=== PATIENT | female | born 1945 | race Caucasian/White ===

== ENCOUNTER 2020-12-14 18:26 | Emergency (ER) | payer MEDICARE, SELFPAY ==
--- NOTE | ~2020-12-14 | XR_ITS ---
XR foot RT min 3V DATE: 12/14/2020 19:58 INDICATION: Erythema, edema. Plantar bite near first metatarsal bone TECHNIQUE: 4 views COMPARISON: None FINDINGS: Diffuse osteopenia. There is a very thin 5.7 mm radiopaque foreign body anterior to the lateral aspect of the second meta tarsal head. There is mild osteoarthritis at the first metatarsophalangeal joint. There is calcification of the distal Achilles tendon. Plantar calcaneal enthesopathy. No fracture or dislocation, periosteal reaction or bone destruction. IMPRESSION: Radiopaque foreign body Osteopenia Plantar calcaneal enthesopathy and distal Achilles tendon calcification Mild osteoarthritis at first metatarsophalangeal joint Reviewed, dictated and finalized at location A.
[2020-12-14 18:29] VITALS: BP 148/87; PULSE 73; RESP 20; TEMP 36.3; O2SAT 100
--- NOTE | 2020-12-14 19:55 | ED.LOWEXIN ---
HPI - Extremity Injury (Lower) General Chief Complaint: Extremity Injury, Lower Stated Complaint: insect bite right foot Time Seen by Provider: 12/14/20 19:16 Source: patient Mode of arrival: ambulatory Limitations: no limitations History of Present Illness HPI Narrative: This is a 74-year-old female that presents to the emergency department for right foot redness and swelling since yesterday. Reports she thought that she may have been bit by something. Reports the area is itchy. Reports she had worsening redness and swelling to the foot today which prompted her to be seen. Denies fever. Related Data Allergies Allergy/AdvReac Type Severity Reaction Status Date / Time adhesive Allergy Mild Unknown Verified 08/10/20 14:10 lisinopril Allergy Unknown Skin Verified 08/10/20 14:10 Reaction pollen extracts Allergy Unknown Sneezing Verified 08/10/20 14:10 tizanidine Allergy Unknown Pt does Verified 08/10/20 14:10 not remember reaction Review of Systems Review of Systems: Narrative: CONSTITUTIONAL: Denies fever SKIN: Reports rash and itching. MUSCULOSKELETAL: Denies joint pain, or myalgia. NEUROLOGIC: Denies numbness All systems reviewed & are unremarkable except as noted in HPI and below PMFSH Past Medical History Medical History (Updated 12/14/20 @ 22:26 by Gerda Cam PA-C) Essential (primary) hypertension Mixed hyperlipidemia Type 2 diabetes mellitus with diabetic neuropathy, unspecified Family History Family History Mother Diabetes mellitus Hypertension Father Family history of hypercholesterolemia Hypertension Family history of cardiovascular disease Sibling Family history of mental disorder Depression Family history of alcoholism Social History Social History Smoking status: Former smoker Alcohol intake: current Exam Narrative: Exam Narrative: GENERAL: Well-appearing, well-nourished, and in no acute distress. HEAD: Normocephalic, atraumatic. EYES: EOMI. EXTREMITIES: Normal range of motion. Mild edema and redness about the right foot extending into the ankle. Normal DP pulses. Normal sensation SKIN: Warm, dry, no rash. NEURO: No focal deficits. Alert and oriented x3. PSYCH: Normal mood and affect Course Vital Signs Vital signs: Vital Signs Temperature 97.4 F L 12/14/20 18:29 Pulse Rate 73 12/14/20 18:29 Respiratory Rate 20 12/14/20 18:29 Blood Pressure 148/87 H 12/14/20 18:29 Pulse Oximetry 100 12/14/20 18:29 Temperature 97.4 F L 12/14/20 18:29 Pulse Rate 73 12/14/20 18:29 Respiratory Rate 20 12/14/20 18:29 Blood Pressure 148/87 H 12/14/20 18:29 Pulse Oximetry 100 12/14/20 18:29 MDM - Extremity Injury (Lower) MDM Narrative Medical decision making narrative: Patient presents to the emergency department for redness and swelling of her right foot noted since yesterday. She is afebrile and nontoxic-appearing. CBC with mild leukocytosis to 12.1. CRP is not elevated. Right foot x-ray is without acute osseous abnormalities. Shows a 5 mm thin radiopaque foreign body. This is not in the area where patient has redness. She is not tender in this area. There is no laceration noted. She does report she thinks she stepped on some glass a couple of weeks ago. Patient will be started on oral antibiotics for cellulitis. She is to follow-up with her primary care doctor. She was given warnings to return to the ER Lab Data Attestation: I reviewed the patient's lab results. Result diagrams: 12/14/20 22:04 Labs: Lab Results 12/14/20 12/14/20 Range/Units 20:33 22:04 WBC 12.1 H (4.5-10.0) K/mm3 RBC 4.25 (4.2-5.4) M/mm3 Hgb 13.6 (12.0-15.0) g/dL Hct 41.3 (37.0-47.0) % MCV 97.2 (80-100) fl MCH 32.0 (26-34) pg MCHC 32.9 (32-36) g/dl RDW 13.0 (11.5-14.5) % Plt Count 214 (150-375
[2020-12-14 21:05] LABS: CRP < 0.5 mg/dL (<1.0)
[2020-12-14 22:11] LABS: Basophils Absolute Auto 0.1 K/mm3 (0.0-0.1); Basophils Percent Auto 0.4 % (0.2-1.2); Eosinophils Absolute Auto 0.2 K/mm3 (0-0.3); Eosinophils Percent Auto 1.5 % (0-4.4); Hematocrit 41.3 % (37.0-47.0); Hemoglobin 13.6 g/dL (12.0-15.0); Immature Granulocyte Absolute 0.07 K/mm3 (0.00-0.031); Immature Granulocyte Percent A 0.6 % (0-0.5); Lymphocytes Absolute Auto 2.96 K/mm3 (0.9-3.2); Lymphocytes Percent Auto 24.4 % (18.3-44.2); Mean Corpuscular HGB Conc 32.9 g/dl (32-36); Mean Corpuscular Volume 97.2 fl (80-100); Mean Platelet Volume 9.9 fl (7.4-10.4); Monocytes Absolute Auto 0.8 K/mm3 (0.1-0.6); Monocytes Percent Auto 6.6 % (2.6-8.5); Neutrophils Absolute Auto 8.1 K/mm3 (1.3-6.7); Neutrophils Percent Auto 66.5 % (45.5-73.1); Platelet Count Result 214 k/mm3 (150-375); Red Blood Count 4.25 M/mm3 (4.2-5.4); White Blood Count 12.1 K/mm3 (4.5-10.0)
[2020-12-14] MEDS: CEPHALEXIN 500 MG CAPSULE PO (22:35)
[2020-12-14 22:36] LABS: Erythrocyte Sedimentation Rate 6 mm/hr (0-20)
[2020-12-14 22:40] VITALS: BP 139/89; PULSE 71; RESP 18; TEMP 36.8; O2SAT 100
== END 2020-12-14 22:40 | disposition home or self-care (01) ==
PROVIDERS: Physician Assistant; Emergency Provider Emergency Medicine; PCP Family Medicine
DX: L03.115 Cellulitis of right lower limb (principal); I10 Essential (primary) hypertension; E78.5 Hyperlipidemia, unspecified; E11.9 Type 2 diabetes mellitus without complications
CPT/HCPCS: 36415; 73630; 85025; 85652; 86140; 99283; A9270

== ENCOUNTER 2021-06-24 13:33 | Outpatient (CLI) | payer MEDICARE, SELFPAY ==
--- NOTE | ~2021-06-24 | XR_ITS ---
EXAMINATION: XR lumbar spine 6V w bending EXAM DATE: 06/24/2021 13:56 INDICATION: M54.9 - Dorsalgia, unspecified TECHNIQUE: Lumber spine frontal, lateral, bilateral oblique projections. Bilateral oblique projectio ns. Additional lateral flexion and lateral extension projections obtained. Coned down frontal and l ateral L5-S1 lumbar projections for interpretation. Images obtained upright. There is no prior study for comparison. FINDINGS: Mild diffuse loss of lumbar vertebral body heights. There is about 3 mm retrolisthesis L3 o n L4 and L4 on L5, no appreciable change in these subluxations between the lateral flexion and latera l extension projections.. Moderate disc disease throughout the lumbar spine. Mild to moderate lumbar dextroscoliosis. No spondylolysis suspected. There is moderate to severe lumbar facet arthropathy. Ao rtic arterial sclerosis. Sacrum, sacroiliac joints, sacral arcuate lines are intact. IMPRESSION: 1. Moderate lumbar disc disease, moderate to severe arthropathy. 2. Mild to moderate dextroscoliosis. Reviewed, dictated and finalized at location A. HIATRY RESIDENT
== END 2021-06-24 13:34 | disposition home or self-care (01) ==
LOC: ANHIMG 13:39
PROVIDERS: PCP Family Medicine; Visit Provider Family Medicine
DX: M54.9 Dorsalgia, unspecified (principal); R20.2 Paresthesia of skin; M51.36 Other intervertebral disc degeneration, lumbar region
CPT/HCPCS: 72114

== ENCOUNTER 2021-11-21 15:16 | Inpatient (IN) | payer MEDICARE, SELFPAY ==
[2021-11-21] VITALS (28 sets, daily range): BP systolic 107–132; BP diastolic 52–76; PULSE 58–69; RESP 11–20; TEMP 36–36.4; O2SAT 94–100
--- NOTE | ~2021-11-21 | CT_ITS ---
EXAMINATION: CT abdomen pelvis wo con DATE: 11/21/2021 17:05 INDICATION: Left lower quadrant abdominal pain. Weight loss. TECHNIQUE: Computed tomography (CT) of the abdomen and pelvis was performed without intravenous contr ast. Automated exposure control and iterative reconstruction technique were employed. Exam dose: 642 .65 mGy-cm total exam DLP. COMPARISON: None. FINDINGS: Normal heart size. Prominent coronary artery calcifications. No pericardial or pleural effu geovany. The lung bases are clear of infiltrate or consolidation. Small sliding hiatal hernia. Status post cholecystectomy. No hepatic, splenic, pancreatic or right adrenal space-occupying mass le geovany is evident. 1.6 x 2.3 cm soft tissue mass of the left adrenal area. Generalized left renal atrophy, left renal scarring. No renal mass lesion or urinary tract calculus o r hydroureteronephrosis is detected. There is extensive atherosclerotic calcification of the abdominal aorta and prominent calcification a t the origins of celiac and superior mesenteric and renal arteries. No abdominal aortic aneurysm. No intraperitoneal or retroperitoneal or pelvic mass lesion or adenopathy or ascites. Diverticulosis of the sigmoid colon; no CT evidence of diverticulitis. No bowel obstruction or intrap eritoneal free air. The uterus, adnexal areas and urinary bladder are unremarkable. There is severe degenerative disc disease at L3-4 and L4-5 in particular, with minimal retrolisthesis at each of these 2 levels. Prominent degenerative change at the apophyseal joints of the lumbar spin e. Diffuse osteopenia is noted otherwise. IMPRESSION: Status post cholecystectomy Small sliding hiatal hernia Diverticulosis of sigmoid colon; no CT evidence of diverticulitis 1.6 x 2.3 cm left adrenal mass evident on diffusion diagnosis includes adenoma and metastasis Left renal atrophy and scarring Extensive atherosclerotic calcification, including coronary arteries, abdominal aorta, origins of mohit iac, superior mesenteric and renal arteries Reviewed, dictated and finalized at Location [facility]. Reviewed, dictated and finalized at location B. IMPRESSION: Status post cholecystectomy Small sliding hiatal hernia Diverticulosis of sigmoid colon; no CT evidence of diverticulitis 1.6 x 2.3 cm left adrenal mass evident on diffusion diagnosis includes adenoma and metastasis Left renal atrophy and scarring Extensive atherosclerotic calcification, including coronary arteries, abdominal aorta, origins of celiac, superior mesenteric and renal arteries
--- NOTE | ~2021-11-21 | US_ITS ---
EXAMINATION: US renal BI DATE: 11/22/2021 11:02 INDICATION: Acute kidney injury TECHNIQUE: Multiple grayscale and Doppler ultrasound images of the kidneys were obtained. COMPARISON: None. FINDINGS: The right kidney measures 9.6 x 4.2 x 5.2 cm. The left kidney measures 9.4 x 4.5 x 4.9 cm. The kidneys demonstrate normal parenchymal echogenicity. There is no hydronephrosis. The bladder is n ormal. IMPRESSION: 1. Normal kidneys without hydronephrosis. Reviewed, dictated and finalized at location A.
--- NOTE | 2021-11-21 15:24 | ECG_ITS ---
Measurements Intervals [place] Rate: 63 P: 20 [place]: 141 QRS: 31 QRSD: 82 T: 85 QT: 465 QTc: 476 Interpretive Statements SINUS RHYTHM BORDERLINE ST-T WAVE ABNORMALITY- DIFFUSE LEADS BASELINE ARTIFACT- I, II, III, AVR, AVL, AVF BORDERLINE ECG Electronically Signed On 11-21-2021 15:50:15 CDT by Martin Anne D.O.
--- NOTE | 2021-11-21 16:05 | ED.ABDPAIN ---
HPI - Abdominal Pain General Chief Complaint: Abdominal Pain Stated Complaint: abd pain Time Seen by Provider: 11/21/21 15:39 History of Present Illness HPI narrative: Patient is a 75-year-old female with a history of hypertension, [place] status post stents, TIA on aspirin and Plavix, hernia status postsurgical repair, hypothyroidism, here via EMS for evaluation of diarrhea x 2 days and lightheadedness today. Patient states she began having diarrhea yesterday, it was nonbloody and nonbilious. She had a few more episodes today, and she became lightheaded while playing a board game. She also developed some left lower quadrant abdominal gas pain today with some chills, but no fevers. Her last colonoscopy was over 10 years ago, and she states it was normal. She does note an unintentional 30 pound weight loss over the past 6 months or so, which she attributes to decreased appetite. She denies any headache, nausea, vomiting, blood in her stools. Denies history or family history of malignancy. Related Data Allergies Allergy/AdvReac Type Severity Reaction Status Date / Time adhesive Allergy Mild Unknown Verified 11/21/21 15:23 lisinopril Allergy Unknown Skin Verified 11/21/21 15:23 Reaction pollen extracts Allergy Unknown Sneezing Verified 11/21/21 15:23 tizanidine Allergy Unknown Pt does Verified 11/21/21 15:23 not remember reaction Review of Systems Review of Systems: Gen.: Reports chills. Denies fevers Eyes: Denies eye pain or visual change ENT: Denies congestion Respiratory: Denies shortness of breath or cough CV: Denies chest pain or palpitations GI: Reports abdominal pain, diarrhea, weight loss. Denies nausea, emesis denies burning, urgency, frequency or hematuria Musculoskeletal: Denies back pain or muscle pain Neuro: Denies numbness, tingling, weakness or focal weakness Skin: Denies rash Except as documented, all other systems reviewed and negative All systems reviewed & are unremarkable except as noted in HPI and below [facility] Past Medical History Medical History Essential (primary) hypertension Hemiparesthesia Mixed hyperlipidemia Type 2 diabetes mellitus with diabetic neuropathy, unspecified Family History Family History (Reviewed 08/23/21 @ 09:15 by Luz Maria Rubi, [facility]) Mother Diabetes mellitus Hypertension Father Family history of hypercholesterolemia Hypertension Family history of cardiovascular disease Sibling Family history of mental disorder Depression Family history of alcoholism Social History Social History (Reviewed 08/23/21 @ 09:15 by Luz Maria Rubi [facility]) Alcohol intake: current Exam Narrative: APPEARANCE: Well appearing, no pain in distress, well-nourished. Head: normocephalic and atraumatic. EYES: PERRLA/EOMI, conjunctivae clear NOSE: No nasal drainage EARS: External ear normal in appearance THROAT: Oropharynx is clear. Mucous membranes are moist. NECK: Supple. No adenopathy, no masses. RESPIRATORY: Airway patent, respirations nonlabored. Clear to auscultation bilaterally, no rales, rhonchi, wheezing. CARDIOVASCULAR: Regular rate and rhythm without murmurs, rubs, or gallops. ABDOMINAL: Mildly tender to palpation in left lower quadrant. Normoactive bowel sounds. Soft. No rebound tenderness or guarding. MUSCULOSKELETAL: Extremities are warm and well-perfused. Moves all extremities well. No edema. NEURO: Normal speech. No focal neurologic deficits. SKIN: Skin is warm and dry. No rashes. PSYCHIATRIC: Normal affect/mood. Course Course Emergency Course: Attempted to contact Mary Anne, patient's daughter, to update with plan for admission however she did not answer phone call. Mary Anne's phone number is [phone]. Consultations Consultation #1: Spoke with Dr. Alexander, oncologist, about finding on CT scan and unintentional weight loss. Agrees with outpatient work-up plan. Vital Signs Vital signs: Vital S
[2021-11-21 16:19] LABS: Basophils Percent Auto 0.4 % (0.2-1.2); Eosinophils Absolute Auto 0.1 K/mm3 (0-0.3); Eosinophils Percent Auto 0.5 % (0-4.4); Hematocrit 41.1 % (37.0-47.0); Hemoglobin 13.5 g/dL (12.0-15.0); Immature Granulocyte Absolute 0.04 K/mm3 (0.00-0.031); Immature Granulocyte Percent A 0.4 % (0-0.5); Lymphocytes Absolute Auto 2.04 K/mm3 (0.9-3.2); Lymphocytes Percent Auto 20.8 % (18.3-44.2); Mean Corpuscular HGB Conc 32.8 g/dl (32-36); Mean Corpuscular Hemoglobin 32.2 pg (26-34); Mean Corpuscular Volume 98.1 fl (80-100); Mean Platelet Volume 10.5 fl (7.4-10.4); Monocytes Absolute Auto 0.8 K/mm3 (0.1-0.6); Monocytes Percent Auto 7.9 % (2.6-8.5); Neutrophils Absolute Auto 6.9 K/mm3 (1.3-6.7); Platelet Count Result 163 k/mm3 (150-375); Red Blood Count 4.19 M/mm3 (4.2-5.4); Red Cell Distribution Width 13.6 % (11.5-14.5); White Blood Count 9.8 K/mm3 (4.5-10.0)
[2021-11-21 16:31] LABS: Alanine Aminotransferase 25 U/L (6-35); Albumin Level 3.7 g/dL (3.5-5.1); Alkaline Phosphatase 98 U/L (38-126); Anion Gap 6 mmol/L (8-16); Aspartate Amino Transferase 34 U/L (14-36); Bilirubin,Total 0.5 mg/dL (0.2-1.3); Blood Urea Nitrogen 37 mg/dL (7-17); Calcium 9.2 mg/dL (8.4-10.2); Carbon Dioxide 24 mmol/L (22-30); Chloride 102 mmol/L (98-107); Estimated CRCL calculation 24 ml/min; Estimated Glomerular Filt Rate 26; Glucose 112 mg/dL (65-110); Lipase 155 U/L (23-300); Potassium 4.1 mmol/L (3.4-5.0); Sodium 132 mmol/L (137-145)
[2021-11-21] MEDS: SODIUM CHLORIDE 0.9% IV 1,000 ML 999 ML IV CONT ×2 (17:18→18:56)
--- NOTE | 2021-11-21 19:10 | PC.NURSE ---
BSSR from Shirin ROSARIO
[2021-11-21 19:13] LABS: Appearance Urine Clear (Clear); Bilirubin Urine Negative (Negative); Blood Urine Negative (Negative); Color Urine Yellow (Yellow); Glucose Urine UA Negative (Negative); Ketones Urine Negative (Negative); Leukocyte Esterase Ur Negative LEU/UL (Negative); Nitrate Urine Negative (Negative); Protein Urine Negative (Negative); Urobilinogen Urine 0.2 mg/dL (<2.0)
[2021-11-21 19:19] LABS: Add Urine Microscopic? NO
--- NOTE | 2021-11-21 20:03 | PM.IMHP ---
H&P: HPI History of Present Illness Date/Time: 11/21/21 20:03 Chief Complaint: Abdominal pain. Narrative: This is a 75-year-old female with past medical history significant for hypertension, hyperlipidemia, type 2 diabetes mellitus, hypothyroidism, gout. Patient presented to emergency room via EMS after she had an episode of acute onset abdominal pain excruciating localized to the right lower quadrant, patient was playing cards with her friends, patient had nausea, vomiting, diarrhea for 1 day duration, no fevers, no rigors, no chills, there was no blood in the vomit or in the diarrhea, no syncope, no near syncope, no chest pain, no palpitations, no vision changes, no shortness of breath, no cough, no sputum production. Patient had been in her usual state of health up until this. Preliminary workup was significant for chemistry panel with a creatinine of 1.[address] of abdomen and pelvis was significant for adrenal mass, sliding hiatal hernia, diverticulosis and extensive atherosclerotic disease. Decision has been made to place the patient in observation for further evaluation management and treatment. Review of Systems Review of Systems: Nausea, vomiting, diarrhea, abdominal pain. Constitutional: Constitutional: Denies chills, Denies fatigue, Denies fever(s), Denies malaise and Denies night sweats Eyes: Eyes: Denies change in vision ENT: Denies dysphagia, Denies vertigo, Denies nasal congestion, Denies nasal discharge, Denies nasal obstruction and Denies odynophagia Cardiovascular: Cardiovascular: Denies pedal edema, Denies edema, Denies leg edema, Denies lightheadedness, Denies radiating jaw, neck or arm pain, Denies palpitations and Denies dyspnea on exertion Respiratory: Respiratory: Denies cough, Denies excessive phlegm production and Denies dyspnea Gastrointestinal: Gastrointestinal: Reports abdominal pain, Denies melena, Denies hematochezia, Denies coffee ground emesis, Denies dyspepsia, Denies heartburn, Reports diarrhea, Reports nausea and Reports vomiting Genitourinary: Genitourinary: Denies dysuria Musculoskeletal: Musculoskeletal: Denies back pain, Denies arthralgias and Denies joint swelling Integumentary/Breasts: Skin/Breast: Denies rash Neurologic: Denies focal weakness and Denies Sensory deficit (Neuro) Psychiatric: Psychiatric: Reports no additional psychiatric complaints and Reports as per HPI Endocrine: Endocrine: Denies cold intolerance, Denies heat intolerance, Denies polyphagia, Denies polydipsia and Denies palpitations Hematologic/Lymphatic: Hematologic/Lymphatic: Reports no additional hematologic/lymphatic complaints and Reports as per HPI Allergic/Immunologic: Allergic/Immunologic: Reports no additional allergic/immunologic complaints and Reports as per HPI [facility] Past Medical History Medical History (Updated 11/22/21 @ 03:21 by Errol Rice MD) Essential (primary) hypertension Hemiparesthesia Mixed hyperlipidemia Type 2 diabetes mellitus with diabetic neuropathy, unspecified Family History Family History Mother Diabetes mellitus Hypertension Father Family history of hypercholesterolemia Hypertension Family history of cardiovascular disease Sibling Family history of mental disorder Depression Family history of alcoholism Social History Social History Smoking status: Former smoker Second hand tobacco smoke exposure: No Alcohol intake: current Drinks per week: 1 Substance use: never Spiritual care concerns: No Meds Home Medications and Allergies Home Medications Medication Instructions Recorded Confirmed Type isosorbide mononitrate 30 mg 30 mg PO DAILY #90 tablet 12/03/19 11/21/21 Rx tablet,extended release 24 hr allopurinol 300 mg tablet See Rx Instructions .ROUTE 02/14/21 11/21/21 Rx .COMPLEX #90 tablet levothyroxine 50 mcg tablet See Rx
--- NOTE | 2021-11-21 21:55 | PC.NURSE ---
attempted to call 3rd med/surg with no answer will call back.
--- NOTE | 2021-11-21 22:26 | ADMGEN ---
This patient, Marcelina Riggins, was admitted to 3 Med Surg Room 325-01. Patient/family oriented to hospital policies and general routines including ID bracelet, bed and alarms, visiting hours, pain management, procedures, bathroom and other care routines, personal items, smoking policy, room service/diet, and visiting hours. Information on how to activate the Rapid Response Team has been discussed. Patient/Family are encouraged to report perceived risks to care and to ask questions if they do not understand what they are told or what they should do.
[2021-11-22] MEDS: diphenhydrAMINE HCl CAP 25 MG CAPSULE 50 MG PO (00:09)
[2021-11-22 06:00] VITALS: BP 128/60; PULSE 57; RESP 18; TEMP 36.6; O2SAT 94
[2021-11-22] MEDS: LEVOTHYROXINE SODIUM 50 MCG TABLET PO (06:04)
[2021-11-22 08:00] VITALS: O2SAT 99
[2021-11-22] MEDS: CITALOPRAM HYDROBROMIDE 20 MG TABLET PO (08:56)
[2021-11-22] MEDS: CLOPIDOGREL BISULFATE 75 MG TABLET PO (08:56)
[2021-11-22] MEDS: ATORVASTATIN 40 MG TABLET PO (08:56)
[2021-11-22] MEDS: allopurinoL 300 MG TABLET PO (08:56)
[2021-11-22] MEDS: ISOSORBIDE MONONITRATE 30 MG TAB.ER.24H PO (08:57)
[2021-11-22 10:08] LABS: Hemoglobin 12.5 g/dL (12.0-15.0); Mean Corpuscular HGB Conc 32.9 g/dl (32-36); Mean Corpuscular Hemoglobin 32.1 pg (26-34); Mean Corpuscular Volume 97.7 fl (80-100); Mean Platelet Volume 10.2 fl (7.4-10.4); Platelet Count Result 159 k/mm3 (150-375); Red Blood Count 3.89 M/mm3 (4.2-5.4); Red Cell Distribution Width 13.7 % (11.5-14.5); White Blood Count 8.2 K/mm3 (4.5-10.0)
[2021-11-22 10:22] LABS: Anion Gap 5 mmol/L (8-16); Blood Urea Nitrogen 28 mg/dL (7-17); Calcium 8.6 mg/dL (8.4-10.2); Carbon Dioxide 26 mmol/L (22-30); Chloride 107 mmol/L (98-107); Estimated CRCL calculation 35 ml/min; Estimated Glomerular Filt Rate 40; Glucose 85 mg/dL (65-110); Magnesium 1.7 mg/dL (1.6-2.3); Potassium 3.8 mmol/L (3.4-5.0); Sodium 138 mmol/L (137-145)
[2021-11-22 10:40] VITALS: BMI 28.3
[2021-11-22 14:00] VITALS: BP 123/58; PULSE 59; RESP 16; TEMP 36.6; O2SAT 99
--- NOTE | 2021-11-22 16:37 | PM.DS ---
DS: Admitting Diagnosis Discharge Date 11/22/2021 Admitting Diagnosis abdominal pain DS: Discharge Diagnosis Discharge Diagnosis (1) Nausea and vomiting: Code(s): R11.2 - Nausea with vomiting, unspecified Status: Acute Assessment and Plan: Place in observation CT abdomen and pelvis reviewed Supportive care Clear liquid diet and advanced as tolerated (2) Acute kidney injury: Code(s): N17.9 - Acute kidney failure, unspecified Status: Acute Assessment and Plan: Likely to be pre renal azotemia Will hold Irbesartan and hydrochlorothiazide IV fluids Repeat BMP in the morning Renal ultrasound in a.m. (3) Adrenal mass: Code(s): E27.8 - Other specified disorders of adrenal gland Status: Acute Assessment and Plan: Follow-up in outpatient setting (4) Essential (primary) hypertension: Code(s): I10 - Essential (primary) hypertension Status: Acute Assessment and Plan: Continue isosorbide Continue to monitor (5) Osteoarthrosis, unspecified whether generalized or localized, forearm: Code(s): M19.039 - Primary osteoarthritis, unspecified wrist Status: Acute Assessment and Plan: Tylenol p.r.n. (6) Gout, unspecified: Qualifiers: Gout site: foot Gout etiology: unspecified cause Chronicity: unspecified Laterality: unspecified laterality Qualified Code(s): M10.9 - Gout, unspecified Code(s): M10.9 - Gout, unspecified Status: Acute Assessment and Plan: Allopurinol 300 mg p.o. daily Unchanged (7) Chronic bilateral low back pain without sciatica: Code(s): M54.50 - Low back pain, unspecified; G89.29 - Other chronic pain Status: Acute Assessment and Plan: Tylenol as needed Unchanged DS: Summary Hospital Course Reason for hospitalization: Chief Complaint: Abdominal pain. Narrative: This is a 75-year-old female with past medical history significant for hypertension, hyperlipidemia, type 2 diabetes mellitus, hypothyroidism, gout. Patient presented to emergency room via EMS after she had an episode of acute onset abdominal pain excruciating localized to the right lower quadrant, patient was playing cards with her friends, patient had nausea, vomiting, diarrhea for 1 day duration, no fevers, no rigors, no chills, there was no blood in the vomit or in the diarrhea, no syncope, no near syncope, no chest pain, no palpitations, no vision changes, no shortness of breath, no cough, no sputum production. Patient had been in her usual state of health up until this. Preliminary workup was significant for chemistry panel with a creatinine of 1.[address] of abdomen and pelvis was significant for adrenal mass, sliding hiatal hernia, diverticulosis and extensive atherosclerotic disease. Decision has been made to place the patient in observation for further evaluation management and treatment. Hospital Course: patient presented with complaint abdominal pain CT scan of abdomen showed adernal mass there are no other significant pathology, patient's symptoms have improved substantially and has no new complaints, will discharge the patient today patient will follow-up with oncologist for further evaluation of the mass, patient remains clinically stable Status at Discharge Functional status at discharge: uses cane/walker Overall status at discharge: patient is back to baseline Time Spent with Patient Time attestation: Total time spent providing and/or coordinating discharge services: Patient was seen and examined at the time of the discharge Condition at discharge is stable Code status: Full code. Time spent preparing discharge summary, discharge medications, discussing discharge planning with skilled nursing case manager and patient is 35 minutes. Time spent: Greater than 30 minutes Exam Narrative: Patient is comfortable, NAD HEENT: eyes are clear and none icteric LUNGS: normal respiratory effort ABD: not distended
== END 2021-11-22 17:50 | disposition home or self-care (01) | DRG 684 ==
LOC: ANHED 20:10 → ANH3MEDSUR 11-22 09:49
PROVIDERS: Emergency Medicine; Admitting Provider Internal Medicine; Emergency Provider Emergency Medicine; PCP Family Medicine; Visit Provider Family Medicine
DX: N17.9 Acute kidney failure, unspecified (principal); I10 Essential (primary) hypertension; E03.9 Hypothyroidism, unspecified; M10.9 Gout, unspecified; E78.5 Hyperlipidemia, unspecified; E11.42 Type 2 diabetes mellitus with diabetic polyneuropathy; E27.8 Other specified disorders of adrenal gland; M19.039 Primary osteoarthritis, unspecified wrist; G89.29 Other chronic pain; M54.50 Low back pain, unspecified; I25.2 Old myocardial infarction; Z95.5 Presence of coronary angioplasty implant and graft; Z79.82 Long term (current) use of aspirin; Z79.02 Long term (current) use of antithrombotics/antiplatelets; Z86.73 Personal history of transient ischemic attack (TIA), and cerebral infarction without residual deficits
CPT/HCPCS: 36415; 51701; 74176; 76775; 80048; 80053; 81003; 83690; 83735; 85025; 85027; 93005; 96360; 96361; 99285; A9270; J7030

== ENCOUNTER 2022-02-08 16:46 | Emergency (ER) | payer MEDICARE, SELFPAY ==
--- NOTE | ~2022-02-08 | XR_ITS ---
EXAMINATION: XR chest 2V Exam Date/Time: 02/08/2022 17:40 CDT HISTORY: weakness, nausea, diarrhea. hx htn Comparison: None available. RESULT: Lines, tubes, and devices: Coronary artery stents. Lungs and pleura: Clear. Cardiomediastinal silhouette: Unremarkable. Other: No acute osseous or upper abdominal finding. IMPRESSION: No acute cardiopulmonary process. Reviewed, dictated and finalized at location K.
--- NOTE | ~2022-02-08 | CT_ITS ---
EXAMINATION: CT abdomen pelvis wo con DATE: 02/08/2022 17:51 INDICATION: LUQ pain, diarrhea, weakness TECHNIQUE: Computed tomography (CT) of the abdomen and pelvis was performed without intravenous contr ast. Automated exposure control and iterative reconstruction technique were employed. The dose-length product was 642.58 mGy-cm. COMPARISON: 11/21/2021. FINDINGS: Lower thorax: Coronary artery stents. Liver: Normal. Biliary/Gallbladder: Gallbladder is absent. No bile duct dilation. Pancreas: No mass or duct dilation. Spleen: Normal. Adrenals:Left adrenal adenoma. Kidneys: No mass, stone, or hydronephrosis. GI tract: No small or large bowel dilation. Nondilated appendix with appendicolith. Diverticulosis wi thout diverticulitis. Mesentery/Peritoneum: No ascites, mass, or free air. Retroperitoneum: No mass. Atherosclerotic abdominal aortic and/or arterial calcifications. Pelvis: Pelvic organs are within normal limits. Soft Tissues: Soft tissues and body wall unremarkable. Bones: No acute osseous finding. IMPRESSION: No acute abdominopelvic process detected Reviewed, dictated and finalized at location K.
[2022-02-08 16:49] VITALS: BP 147/74; PULSE 69; RESP 20; TEMP 36.4; O2SAT 99
--- NOTE | 2022-02-08 16:51 | ECG_ITS ---
Measurements Intervals [place] Rate: 66 P: 47 [place]: 142 QRS: 62 QRSD: 82 T: 76 QT: 439 QTc: 460 Interpretive Statements SINUS RHYTHM BORDERLINE ST-T WAVE ABNORMALITY- DIFFUSE LEADS BASELINE ARTIFACT- I, II, III, AVR, AVL BORDERLINE ECG Electronically Signed On 02-08-2022 18:59:07 CDT by Martin Anne D.O.
[2022-02-08 17:13] LABS: Hematocrit 43.4 % (37.0-47.0); Hemoglobin 14.2 g/dL (12.0-15.0); Red Blood Count 4.46 M/mm3 (4.2-5.4); White Blood Count 6.4 K/mm3 (4.5-10.0)
[2022-02-08 17:14] LABS: Basophils Percent Auto 0.2 % (0.2-1.2); Immature Granulocyte Absolute 0.02 K/mm3 (0.00-0.031); Immature Granulocyte Percent A 0.3 % (0-0.5); Lymphocytes Absolute Auto 2.42 K/mm3 (0.9-3.2); Lymphocytes Percent Auto 37.8 % (18.3-44.2); Mean Corpuscular HGB Conc 32.7 g/dl (32-36); Mean Corpuscular Hemoglobin 31.8 pg (26-34); Mean Corpuscular Volume 97.3 fl (80-100); Mean Platelet Volume 10.5 fl (7.4-10.4); Monocytes Absolute Auto 0.6 K/mm3 (0.1-0.6); Monocytes Percent Auto 9.2 % (2.6-8.5); Neutrophils Absolute Auto 3.4 K/mm3 (1.3-6.7); Neutrophils Percent Auto 52.5 % (45.5-73.1); Platelet Count Result 148 k/mm3 (150-375); Red Cell Distribution Width 13.4 % (11.5-14.5)
[2022-02-08 17:22] LABS: Alanine Aminotransferase 40 U/L (6-35); Alkaline Phosphatase 73 U/L (38-126); Anion Gap 9 mmol/L (8-16); Aspartate Amino Transferase 48 U/L (14-36); Bilirubin,Total 0.7 mg/dL (0.2-1.3); Blood Urea Nitrogen 30 mg/dL (7-17); Calcium 8.7 mg/dL (8.4-10.2); Carbon Dioxide 26 mmol/L (22-30); Chloride 99 mmol/L (98-107); Estimated CRCL calculation 28 ml/min; Estimated Glomerular Filt Rate 31; Glucose 133 mg/dL (65-110); Potassium 3.8 mmol/L (3.4-5.0); Sodium 134 mmol/L (137-145)
--- NOTE | 2022-02-08 17:32 | ED.NAVMDI ---
HPI - Nausea/Vomiting/Diarrhea General Chief complaint: Weakness Stated complaint: diarrhea Time Seen by Provider: 02/08/22 17:15 History of Present Illness HPI Narrative: Patient is a 76-year-old female with a history of hypertension, hypothyroidism, OR status post stenting, on aspirin and Plavix, here for evaluation of weakness over the past day. Patient states that she just feels wiped out , and all she wants to do is lie in bed. Reports 1 episode of nonbloody diarrhea today and some nausea, states that yesterday she had some left upper quadrant abdominal pain, now resolved. Denies any fevers, chills, chest pain, shortness of breath, falls, headaches. Reports difficulty pushing out urine 2 days ago, now resolved, no dysuria, urgency or frequency. Of note, patient presented to the ED 3 months ago for similar complaints, she was admitted for observation due to an SOPHIA, symptoms improved after rehydration. She did have a renal ultrasound that was negative. Related Data Allergies Allergy/AdvReac Type Severity Reaction Status Date / Time adhesive Allergy Mild Unknown Verified 11/21/21 15:23 lisinopril Allergy Unknown Skin Verified 11/21/21 15:23 Reaction pollen extracts Allergy Unknown Sneezing Verified 11/21/21 15:23 tizanidine Allergy Unknown Pt does Verified 11/21/21 15:23 not remember reaction Review of Systems Review of Systems: Gen: Reports generalized weakness.Denies fevers or chills Eyes: Denies eye pain or visual change ENT: Denies congestion Respiratory: Denies shortness of breath or cough CV: Denies chest pain or palpitations GI: Reports abdominal pain diarrhea and nausea. Denies emesis : denies burning, urgency, frequency or hematuria Musculoskeletal: Denies back pain or muscle pain Neuro: Denies numbness, tingling, weakness or focal weakness Skin: Denies rash Except as documented, all other systems reviewed and negative [facility] Past Medical History Medical History (Updated 02/09/22 @ 00:00 by Background Daemon) Essential (primary) hypertension Hemiparesthesia Mixed hyperlipidemia Type 2 diabetes mellitus with diabetic neuropathy, unspecified Family History Family History Mother Diabetes mellitus Hypertension Father Family history of hypercholesterolemia Hypertension Family history of cardiovascular disease Sibling Family history of mental disorder Depression Family history of alcoholism Social History Social History Smoking status: Former smoker Second hand tobacco smoke exposure: No Alcohol intake: current Drinks per week: 1 Substance use: never Spiritual care concerns: No Exam Narrative: APPEARANCE: Tired appearing Head: Normocephalic and atraumatic. EYES: PERRLA/EOMI, conjunctivae clear NOSE: No nasal drainage EARS: External ear normal in appearance THROAT: Oropharynx is clear. Mucous membranes are moist. NECK: Supple. No adenopathy, no masses. RESPIRATORY: Airway patent, respirations nonlabored. Clear to auscultation bilaterally, no rales, rhonchi, wheezing. CARDIOVASCULAR: Regular rate and rhythm without murmurs, rubs, or gallops. ABDOMINAL: Normoactive bowel sounds. Soft, nontender, nondistended. No rebound tenderness or guarding. MUSCULOSKELETAL: Extremities are warm and well-perfused. Moves all extremities well. No edema. NEURO: Normal speech. No focal neurologic deficits. SKIN: Skin is warm and dry. No rashes. PSYCHIATRIC: Normal affect/mood. Course Vital Signs Vital signs: Vital Signs Temperature 97.6 F 02/08/22 16:49 Pulse Rate 69 02/08/22 16:49 Respiratory Rate 20 02/08/22 16:49 Blood Pressure 147/74 H 02/08/22 16:49 Pulse Oximetry 99 02/08/22 16:49 Oxygen Delivery Room Air 02/08/22 16:49 Temperature 97.6 F 02/08/22 16:49 Pulse Rate 75 02/08/22 20:24 Respiratory Rate 18 02/08/22 20:24 Blood
[2022-02-08 17:48] LABS: Magnesium 1.8 mg/dL (1.6-2.3); Phosphorus 2.5 mg/dL (2.5-4.5)
[2022-02-08 17:56] LABS: SARS-CoV-2 RNA PCR Positive
[2022-02-08] MEDS: SODIUM CHLORIDE 0.9% IV 1,000 ML 999 ML IV CONT (18:04)
[2022-02-08 19:36] LABS: Appearance Urine Cloudy (Clear); Bilirubin Urine 1+ (Negative); Blood Urine 2+ (Negative); Color Urine Yellow (Yellow); Glucose Urine UA Negative (Negative); Ketones Urine Trace mg/dL (Negative); Leukocyte Esterase Ur 3+ LEU/UL (Negative); Nitrate Urine Negative (Negative); Protein Urine 2+ mg/dL (Negative); Urobilinogen Urine 0.2 mg/dL (<2.0); pH Urine 5.5 (5.0-9.0)
[2022-02-08 19:51] LABS: Mucus Urine Rare /lpf; RBC Urine 51-75 /hpf (0-2); Squamous Epithelial Cell Urine Occasional /hpf (Few); WBC Clumps Urine Present /HPF; WBC Urine >75 /hpf
[2022-02-08 19:54] LABS: Add Urine Microscopic? YES
[2022-02-08 20:24] VITALS: BP 122/76; PULSE 75; RESP 18; O2SAT 99
== END 2022-02-08 20:25 | disposition home or self-care (01) ==
PROVIDERS: Physician Assistant; Emergency Provider Emergency Medicine; PCP Family Medicine
DX: U07.1 COVID-19 (principal); N39.0 Urinary tract infection, site not specified; I10 Essential (primary) hypertension; E78.5 Hyperlipidemia, unspecified; E11.40 Type 2 diabetes mellitus with diabetic neuropathy, unspecified
CPT/HCPCS: 36415; 71046; 74176; 80053; 81001; 83735; 84100; 84443; 85025; 87086; 87088; 93005; 96360; 99284; C9803; J7030; U0003; U0005

== ENCOUNTER 2022-03-10 12:28 | Outpatient (CLI) | payer MEDICARE, SELFPAY ==
--- NOTE | 2022-03-13 16:07 | WPDHOLTEREM ---
Holter/Event Monitor Holter/Event Monitor Date of procedure: 03/10/22 Holter/Event Procedure: 24 Hr Holter Monitor Indications: Weakness Conclusion: 1. 24 hour holter monitor on 03/10/22. 2. Predominant rhythm is sinus rhythm. HR range 49-90 bpm; average HR 61 bpm. 3. There are 42 premature supraventricular complexes and 1 supraventricular couplet. There are 2 episodes of atrial tachycardia, fastest at 125 bpm and longest lasting 5 beats. 4. There are 47 premature ventricular complexes. No ventricular tachycardia. 5. No sinoatrial or atrioventricular blocks. No significant pauses greater than 2 seconds. 6. Patient reports symptoms of pain around navel which demonstrate sinus rhythm at 67 bpm.
== END 2022-03-10 12:29 | disposition home or self-care (01) ==
PROVIDERS: PCP Family Medicine; Visit Provider Physician Assistant
DX: R53.1 Weakness (principal)
CPT/HCPCS: 93225; 93226

== ENCOUNTER 2022-03-27 06:25 | Observation (INO) | payer MEDICARE, SELFPAY ==
[2022-03-27] VITALS (15 sets, daily range): BP systolic 143–178; BP diastolic 56–72; PULSE 51–69; RESP 14–24; TEMP 35.7–36.6; O2SAT 97–99; BMI 28.4
--- NOTE | 2022-03-27 06:31 | ED.GENADULT ---
HPI - General Adult General Chief complaint: Allergic Reaction <Eddie Matias MD - Last Filed: 03/27/22 07:11> Stated complaint: ALLERGIC REACTION THROAT AND TONGUE SWELLING <Eddie Matias MD - Last Filed: 03/27/22 07:11> Time Seen by Provider: 03/27/22 06:35 <Eddie Matias MD - Last Filed: 03/27/22 07:11> History of Present Illness HPI narrative: 76-year-old female presented to the emergency department for evaluation of a swollen tongue and throat. Patient states last night she had an alcoholic drink from [place] and has recently started taking Febuxostat. At 5 AM she noticed that her tongue was swollen. Patient did take Benadryl at home. Patient called EMS and in route she was given additional Benadryl. Upon arrival to the emergency department patient states that she does not feel like her tongue has worsened. Patient feels that she is speaking easier than when she first woke up. Patient states she does have some pain with swallowing but denies any difficulty breathing. Patient is able to speak relatively clearly. Patient had been on lisinopril previously but stopped the medication due to a prior skin reaction. Patient has no prior history of angioedema. Patient has history of type 2 diabetes, hypertension, gout. <Eddie Matias MD - Last Filed: 03/27/22 07:11> Related Data Allergies/adverse reactions: Allergies Allergy/AdvReac Type Severity Reaction Status Date / Time adhesive Allergy Mild Unknown Verified 03/27/22 06:33 allopurinol Allergy Mild HIVES Verified 03/27/22 06:33 lisinopril Allergy Unknown Skin Verified 03/27/22 06:33 Reaction pollen extracts Allergy Unknown Sneezing Verified 03/27/22 06:33 tizanidine Allergy Unknown Pt does Verified 03/27/22 06:33 not remember reaction <Eddie Matias MD - Last Filed: 03/27/22 07:11> Review of Systems Review of Systems: CONSTITUTIONAL: Denies fever, chills, or sweats. EYES: Denies visual changes, redness, or discharge. ENT: Swollen tongue CARDIOVASCULAR: Denies chest pain, palpitations, or edema. RESPIRATORY: Denies cough or dyspnea. GASTROINTESTINAL: Denies abdominal pain, nausea, vomiting, or diarrhea. GENITOURINARY: Denies dysuria or hematuria. SKIN: Denies rash or itching. MUSCULOSKELETAL: Denies back pain, joint pain, or myalgia. NEUROLOGIC: Denies headache, numbness, or weakness. <Eddie Matias MD - Last Filed: 03/27/22 07:11> [facility] Past Medical History Medical History: Medical History (Updated 03/27/22 @ 08:21 by Naomi Moreland MD) Essential (primary) hypertension Hemiparesthesia Mixed hyperlipidemia Type 2 diabetes mellitus with diabetic neuropathy, unspecified <Eddie Matias MD - Last Filed: 03/27/22 07:11> Family History Family History: Family History Mother Diabetes mellitus Hypertension Father Family history of hypercholesterolemia Hypertension Family history of cardiovascular disease Sibling Family history of mental disorder Depression Family history of alcoholism <Eddie Matias MD - Last Filed: 03/27/22 07:11> Social History Social History: Social History Smoking status: Former smoker Second hand tobacco smoke exposure: No Alcohol intake: current Drinks per week: 1 Substance use: never Spiritual care concerns: No <Eddie Matias MD - Last Filed: 03/27/22 07:11> Exam Narrative: APPEARANCE: Well appearing, no pain, no distress, well-nourished. HEAD: normocephalic, atraumatic. EYES: PERRLA/EOMI, conjunctivae clear. NOSE: Normal no drainage THROAT: Patient does have edema under her tongue and does have some enlargement of her tongue. Upon arrival patient's posterior pharynx is visible with the use of a tongue depressor. No swelling of the uvula. No swelling of the posterior pharynx. Patient has no sig
[2022-03-27] MEDS: FAMOTIDINE 20 MG/2 ML VIAL IV PUSH (06:34)
[2022-03-27] MEDS: methylPREDNISolone SOD SUCC 125 MG VIAL IV PUSH (06:34)
--- NOTE | 2022-03-27 06:43 | PC.NURSE ---
Holding epinephrine per ERP. Available at bedside if needed.
--- NOTE | 2022-03-27 07:12 | PC.NURSE ---
Assumed care of pt, pt is alert and upright on stretcher, discussed POC. Pt on tele monitor w/ VSS.
[2022-03-27 07:45] LABS: Basophils Percent Auto 0.5 % (0.2-1.2); Eosinophils Absolute Auto 0.2 K/mm3 (0-0.3); Eosinophils Percent Auto 2.4 % (0-4.4); Hematocrit 41.3 % (37.0-47.0); Hemoglobin 13.1 g/dL (12.0-15.0); Immature Granulocyte Absolute 0.03 K/mm3 (0.00-0.031); Immature Granulocyte Percent A 0.3 % (0-0.5); Lymphocytes Absolute Auto 2.87 K/mm3 (0.9-3.2); Lymphocytes Percent Auto 33.3 % (18.3-44.2); Mean Corpuscular HGB Conc 31.7 g/dl (32-36); Mean Corpuscular Hemoglobin 31.6 pg (26-34); Mean Corpuscular Volume 99.5 fl (80-100); Mean Platelet Volume 10.1 fl (7.4-10.4); Monocytes Absolute Auto 0.7 K/mm3 (0.1-0.6); Monocytes Percent Auto 7.8 % (2.6-8.5); Neutrophils Absolute Auto 4.8 K/mm3 (1.3-6.7); Neutrophils Percent Auto 55.7 % (45.5-73.1); Platelet Count Result 220 k/mm3 (150-375); Red Blood Count 4.15 M/mm3 (4.2-5.4); Red Cell Distribution Width 13.2 % (11.5-14.5); White Blood Count 8.6 K/mm3 (4.5-10.0)
[2022-03-27 07:53] LABS: Anion Gap 8 mmol/L (8-16); Blood Urea Nitrogen 18 mg/dL (7-17); Calcium 9.2 mg/dL (8.4-10.2); Carbon Dioxide 27 mmol/L (22-30); Chloride 107 mmol/L (98-107); Estimated CRCL calculation 39 ml/min; Estimated Glomerular Filt Rate 44; Glucose 97 mg/dL (65-110); Potassium 3.7 mmol/L (3.4-5.0); Sodium 142 mmol/L (137-145)
[2022-03-27 09:38] LABS: SARS-CoV-2 RNA PCR Negative
--- NOTE | 2022-03-27 10:35 | ADMGEN ---
This patient, Marcelina Riggins, was admitted to IMU Room 206-01 at 1034 on 03/27/2022. Patient/family oriented to hospital policies and general routines including ID bracelet, bed and alarms, visiting hours, pain management, procedures, bathroom and other care routines, personal items, smoking policy, room service/diet, and visiting hours. Information on how to activate the Rapid Response Team has been discussed. Patient/Family are encouraged to report perceived risks to care and to ask questions if they do not understand what they are told or what they should do.
[2022-03-27 11:46] LABS: Glucose Point of Care 171 mg/dl (65-105)
--- NOTE | 2022-03-27 13:30 | PM.IMHP ---
H&P: HPI History of Present Illness Date/Time: 03/27/22 13:30 Chief Complaint: Allergic reaction. Narrative: This is a very pleasant 76-year-old female with history of coronary artery disease, pulmonary embolism, hypertension, chronic kidney disease, prediabetes, and hypothyroidism who presented to the emergency EMS from home for evaluation of a suspected allergic reaction. Upon waking this morning she noted swelling to the eyes, tongue, and neck. She took Benadryl without much improvement and EMS was summoned. On their arrival, her vital signs were stable and she was given 50 milligrams IV push of Benadryl en route to the hospital. In the ED she was given IV steroids and famotidine; she did not require epinephrine. Since that time her swelling has markedly improved and she only has mild swelling at the tip of the tongue at this time. She has not and is not feeling short of breath. She is tolerating her secretions and is not having any difficulty swallowing. She has never been diagnosed with angioedema before however she has had allergic reactions to medications including lisinopril and allopurinol, both which seemed to have caused significant urticaria, some which she describes as very large and deep. In fact her allopurinol was stopped just 3 weeks ago due to the symptoms and she was started on febuxostat may be a week ago. At the time my evaluation she has no complaints aside from the fact that she is hungry. Of note she is currently wearing an event monitor to evaluate bradycardia as she had been complaining of intermittent episodes of weakness and occasional low blood pressures. Review of Systems Review of Systems: Twelve systems were reviewed. No fever, chills, or sweats. No recent cold or flu symptoms. No syncope or near syncope. No chest pain or shortness of breath. No nausea or vomiting. Except as documented, all other systems were reviewed and are negative. [facility] Past Medical History Medical History Chronic kidney disease, stage 3 Coronary artery disease Depression Essential hypertension Gout Mixed hyperlipidemia Osteoarthritis Prediabetes Surgical History Surgical History History of 2 sections History of bilateral knee arthroplasty History of cardiac catheterization History of cholecystectomy History of coronary artery stent placement History of inguinal hernia repair History of laminectomy History of tonsillectomy History of tubal ligation History of umbilical hernia repair Family History Family History Mother Diabetes mellitus Hypertension Father Family history of hypercholesterolemia Hypertension Family history of cardiovascular disease Sibling Family history of mental disorder Depression Family history of alcoholism Social History Social History (Updated 03/27/22 @ 23:06 by Barbra Oshea PA-C) Social History: Surrogate medical decision maker: Mary Anne Riggins, daughter. Code status: Full code. Smoking packs per day: 1 Smoking cigarettes per day: 20.0 Smoking status: Former smoker Tobacco type: cigarettes Second hand tobacco smoke exposure: No Alcohol intake: current Drinks per week: 1 Substance use: never Additional living arrangements comments: The patient lives in her own [place]. 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 Spiritual care concerns: No Meds Home Medications and Allergies Home Medications Medication Instructions Recorded Confirmed Type isosorbide mononitrate 30 mg 30 mg PO DAILY #90 tabs 12/03/19 03/27/22 Rx tablet,extended release 24 hr cholecalciferol (vitamin D3) 1,250 1,250 mcg PO MONTHLY #14 caps 03/22/21 03/27/22 Rx mcg (50,000 unit) capsule tramadol 50 mg tablet 50 mg PO TID PRN pain #60 tabs
[2022-03-27 16:33] LABS: Glucose Point of Care 147 mg/dl (65-105)
--- NOTE | 2022-03-27 23:21 | PC.NURSE ---
spoke with Barbra ORTEGA and patient can be downgraded to med surg without telemetry.
[2022-03-27] MEDS: methylPREDNISolone SOD SUCC 40 MG VIAL IV PUSH (23:58)
[2022-03-27] MEDS: FAMOTIDINE 20 MG TABLET PO (23:58)
[2022-03-27] MEDS: diphenhydrAMINE HCl CAP 25 MG CAPSULE PO (23:58)
[2022-03-28] VITALS: PULSE 67; RESP 14; O2SAT 98
--- NOTE | 2022-03-28 00:13 | PC.NURSE ---
This patient, Marcelina Riggins, was transferred to [[facility]] on 03/28/22 at 0013. Personal belongings sent with patient. Report given to [ABRAHAM Gregg]. Appropriate documentation sent with patient.
[2022-03-28] MEDS: traMADol HCL (*CRX) 50 MG TABLET PO (00:22)
[2022-03-28 00:23] VITALS: BP 148/64; PULSE 69; RESP 16; TEMP 36.8; O2SAT 98
[2022-03-28 04:00] VITALS: BP 145/71; PULSE 67; RESP 14; TEMP 37; O2SAT 100
[2022-03-28] MEDS: diphenhydrAMINE HCl CAP 25 MG CAPSULE PO ×2 (06:16→11:15)
[2022-03-28] MEDS: LEVOTHYROXINE SODIUM 50 MCG TABLET PO (06:16)
[2022-03-28] MEDS: methylPREDNISolone SOD SUCC 40 MG VIAL IV PUSH ×2 (06:17→11:15)
[2022-03-28 06:57] LABS: Hematocrit 40.4 % (37.0-47.0); Hemoglobin 13.1 g/dL (12.0-15.0); Mean Corpuscular HGB Conc 32.4 g/dl (32-36); Mean Corpuscular Hemoglobin 31.6 pg (26-34); Mean Corpuscular Volume 97.3 fl (80-100); Mean Platelet Volume 10.2 fl (7.4-10.4); Platelet Count Result 233 k/mm3 (150-375); Red Blood Count 4.15 M/mm3 (4.2-5.4); White Blood Count 15.3 K/mm3 (4.5-10.0)
[2022-03-28 07:15] LABS: Anion Gap 9 mmol/L (8-16); Blood Urea Nitrogen 22 mg/dL (7-17); Calcium 9.2 mg/dL (8.4-10.2); Carbon Dioxide 24 mmol/L (22-30); Chloride 106 mmol/L (98-107); Estimated CRCL calculation 44 ml/min; Estimated Glomerular Filt Rate 54; Glucose 113 mg/dL (65-110); Potassium 3.6 mmol/L (3.4-5.0); Sodium 139 mmol/L (137-145)
[2022-03-28 08:00] VITALS: BP 144/64; PULSE 64; RESP 18; TEMP 36.7; O2SAT 100
[2022-03-28 08:05] LABS: Thyroid Stimulating Hormone Reflex 0.565 uIU/mL (0.465-4.68)
[2022-03-28] MEDS: ISOSORBIDE MONONITRATE 30 MG TAB.ER.24H PO (08:10)
[2022-03-28] MEDS: CITALOPRAM HYDROBROMIDE 20 MG TABLET 40 MG PO (08:10)
[2022-03-28] MEDS: ATORVASTATIN 40 MG TABLET 80 MG PO (08:11)
[2022-03-28] MEDS: CLOPIDOGREL BISULFATE 75 MG TABLET PO (08:11)
[2022-03-28] MEDS: FAMOTIDINE 20 MG TABLET PO (08:11)
[2022-03-28] MEDS: ERGOCALCIFEROL 50,000 UNIT CAPSULE 50000 UNITS PO (08:15)
[2022-03-28 10:30] LABS: Glucose Point of Care 208 mg/dl (65-105)
--- NOTE | 2022-03-28 12:23 | PM.DS ---
DS: Admitting Diagnosis Discharge Date 03/28/22 Admitting Diagnosis (1) Angioedema: ?Code(s): T78.3XXA - Angioneurotic edema, initial encounter ?Status:?Acute (2) Essential hypertension: ?Code(s): I10 - Essential (primary) hypertension ?Status:?Acute (3) Gout: ?Code(s): M10.9 - Gout, unspecified ?Status:?Acute (4) Chronic kidney disease, stage 3: ?Code(s): N18.30 - Chronic kidney disease, stage 3 unspecified ?Status:?Acute (5) Prediabetes: ?Code(s): R73.03 - Prediabetes ?Status:?Acute DS: Discharge Diagnosis Discharge Diagnosis (1) Angioedema: Code(s): T78.3XXA - Angioneurotic edema, initial encounter Status: Acute (2) Essential hypertension: Code(s): I10 - Essential (primary) hypertension Status: Acute (3) Gout: Code(s): M10.9 - Gout, unspecified Status: Acute (4) Chronic kidney disease, stage 3: Code(s): N18.30 - Chronic kidney disease, stage 3 unspecified Status: Acute (5) Prediabetes: Code(s): R73.03 - Prediabetes Status: Acute DS: Summary Hospital Course Reason for hospitalization: Allergic reaction. Narrative: This is a very pleasant 76-year-old female with history of coronary artery disease, pulmonary embolism, hypertension, chronic kidney disease, prediabetes, and hypothyroidism who presented to the emergency EMS from home for evaluation of a suspected allergic reaction. Upon waking this morning she noted swelling to the eyes, tongue, and neck. She took Benadryl without much improvement and EMS was summoned. On their arrival, her vital signs were stable and she was given 50 milligrams IV push of Benadryl en route to the hospital. In the ED she was given IV steroids and famotidine; she did not require epinephrine. Since that time her swelling has markedly improved and she only has mild swelling at the tip of the tongue at this time. She has not and is not feeling short of breath. She is tolerating her secretions and is not having any difficulty swallowing. She has never been diagnosed with angioedema before however she has had allergic reactions to medications including lisinopril and allopurinol, both which seemed to have caused significant urticaria, some which she describes as very large and deep. In fact her allopurinol was stopped just 3 weeks ago due to the symptoms and she was started on febuxostat may be a week ago. At the time my evaluation she has no complaints aside from the fact that she is hungry. Of note she is currently wearing an event monitor to evaluate bradycardia as she had been complaining of intermittent episodes of weakness and occasional low blood pressures. Hospital Course: The patient presented to the emergency department this morning via EMS for evaluation of a suspected allergic reaction. She was noted to have angioedema of the tongue for which she was given IV prednisone and Famotidine. Her symptoms have drastically improved With minimal tongue swelling at this time. She is not having difficulty swallowing, is tolerating secretions, has no stridor, and is not short of breath. She should be able to be discharged home in the morning. I suspect febuxostat may be the cause of her symptoms as she had a reaction with allopurinol though not angioedema of the tongue. This was discussed with the patient in detail. Her vital signs have been stable. It is noted that she is currently on a event monitor for intermittent bradycardia and she has been asymptomatic with regards to that. Blood pressures have been stable if not a bit high. Continue antihypertensives and monitor closely. Her renal function is stable on review of previous labs. Her home medications will be reviewed and resumed as appropriate. 03/28/2022 patient had a benign clinical course she was treated with steroids H2 nathan and H1 blockers. Angioedema of her tongue did not progress and she is subsequently discharged home in stable condi
== END 2022-03-28 12:55 | disposition home or self-care (01) ==
LOC: ANHED 08:21 → ANHIMU 09:56 → ANH3MEDSUR 03-28 00:15
PROVIDERS: Physician Assistant; Admitting Provider Hospitalist; Emergency Provider Emergency Medicine; PCP Family Medicine; Visit Provider Hospitalist
DX: T78.3XXA Angioneurotic edema, initial encounter (principal); I12.9 Hypertensive chronic kidney disease with stage 1 through stage 4 chronic kidney disease, or unspecified chronic kidney disease; N18.30 Chronic kidney disease, stage 3 unspecified; R73.03 Prediabetes; M10.9 Gout, unspecified; E78.2 Mixed hyperlipidemia; I25.10 Atherosclerotic heart disease of native coronary artery without angina pectoris; Z95.5 Presence of coronary angioplasty implant and graft; E03.9 Hypothyroidism, unspecified; M19.90 Unspecified osteoarthritis, unspecified site; F32.A Depression, unspecified; Z20.822 Contact with and (suspected) exposure to COVID-19; Z87.891 Personal history of nicotine dependence; Z86.711 Personal history of pulmonary embolism; Z79.02 Long term (current) use of antithrombotics/antiplatelets; Z79.891 Long term (current) use of opiate analgesic; Z79.899 Other long term (current) drug therapy; Z83.3 Family history of diabetes mellitus; Z82.49 Family history of ischemic heart disease and other diseases of the circulatory system; Z83.42 Family history of familial hypercholesterolemia
CPT/HCPCS: 36415; 80048; 82948; 83036; 83735; 84443; 85025; 85027; 96374; 96375; 96376; 99285; A9270; C9803; G0378; J2920; J2930; U0003; U0005

== ENCOUNTER 2022-10-26 16:23 | Inpatient (IN) | payer MEDICARE, SELFPAY ==
[2022-10-25 16:21] VITALS: BMI 29.1
[2022-10-26] VITALS (27 sets, daily range): BP systolic 90–152; BP diastolic 52–101; PULSE 53–97; RESP 12–19; TEMP 36.3–36.4; O2SAT 95–100; BMI 29.7; BMI 31.2
--- NOTE | ~2022-10-26 | CT_ITS ---
EXAMINATION: CT abdomen pelvis w con DATE: 10/26/2022 15:59 INDICATION: Hypotension after cardiac catheterization.. TECHNIQUE: Computed tomography (CT) of the abdomen and pelvis was performed with 100 mL Omnipaque 350 intravenous contrast. Automated exposure control and iterative reconstruction technique were employe d. The dose-length product was 1061.46 mGy-cm. COMPARISON: CT abdomen and pelvis 02/08/2022 FINDINGS: The visualized portions of the lung bases demonstrate mild atelectasis. No pleural effusion . There is left atrial enlargement of the heart. There are coronary artery calcifications. No pericar dial effusion. There is mild intrahepatic biliary duct dilatation and dilatation of the common duct t o 8 mm, likely secondary to cholecystectomy. There is a small sliding hiatal hernia. The spleen, panc reas, and right adrenal gland are normal. There is a 2.3 cm mass in left adrenal gland without change in size and measuring low-attenuation on the prior noncontrast CT, consistent with an adenoma. There is cortical thinning of the kidneys. There are no dilated loops of bowel. This is normal. There is c alcified atherosclerosis of the aorta and many of the other arteries. There are no pathologically enl arged lymph nodes. There is no free intraperitoneal fluid. There is enlargement of left iliopsoas mus taina, consistent with hematoma. There is active extravasation of contrast in left iliopsoas muscle. Th ere is a small subcutaneous hematoma in anterior right thigh. There is severe lumbar spondylosis. IMPRESSION: 1. Active extravasation of contrast in left iliopsoas muscle with enlargement of left iliopsoas muscl e, consistent with hematoma. Reviewed, dictated and finalized at location A. IMPRESSION: 1. Active extravasation of contrast in left iliopsoas muscle with enlargement o f left iliopsoas muscle, consistent with hematoma.
[2022-10-26 09:13] LABS: Basophils Percent Auto 0.4 % (0.2-1.2); Eosinophils Absolute Auto 0.3 K/mm3 (0-0.3); Eosinophils Percent Auto 2.8 % (0-4.4); Hematocrit 42.2 % (37.0-47.0); Hemoglobin 13.7 g/dL (12.0-15.0); Immature Granulocyte Absolute 0.03 K/mm3 (0.00-0.031); Immature Granulocyte Percent A 0.3 % (0-0.5); Lymphocytes Absolute Auto 3.58 K/mm3 (0.9-3.2); Lymphocytes Percent Auto 40.1 % (18.3-44.2); Mean Corpuscular HGB Conc 32.5 g/dl (32-36); Mean Corpuscular Hemoglobin 31.5 pg (26-34); Mean Platelet Volume 9.6 fl (7.4-10.4); Monocytes Absolute Auto 0.7 K/mm3 (0.1-0.6); Monocytes Percent Auto 7.7 % (2.6-8.5); Neutrophils Absolute Auto 4.3 K/mm3 (1.3-6.7); Neutrophils Percent Auto 48.7 % (45.5-73.1); Platelet Count Result 217 k/mm3 (150-375); Red Blood Count 4.35 M/mm3 (4.2-5.4); Red Cell Distribution Width 12.4 % (11.5-14.5); White Blood Count 8.9 K/mm3 (4.5-10.0)
[2022-10-26 09:32] LABS: Anion Gap 5 mmol/L (8-16); Blood Urea Nitrogen 32 mg/dL (7-17); Calcium 9.6 mg/dL (8.4-10.2); Carbon Dioxide 26 mmol/L (22-30); Chloride 106 mmol/L (98-107); Estimated CRCL calculation 40 ml/min; Estimated Glomerular Filt Rate 48; Glucose 99 mg/dL (65-110); Potassium 3.7 mmol/L (3.4-5.0); Sodium 137 mmol/L (137-145)
--- NOTE | 2022-10-26 11:46 | WPDHPUPDATE1 ---
History and Physical Update Update Date/Time: 10/26/22 11:46 History and Physical has been reviewed, including an updated exam of the patient. There are NO changes in the patient's condition. Risks, benefits, and alternatives have been discussed and questions answered. Patient agrees to proceed with procedure.
--- NOTE | 2022-10-26 11:47 | WPDMODSED ---
Moderate Sedation Note-Pt Data Patient Data Diagnosis: CAD, abnormal stress test, angina Present Complaint: none Procedure to be performed/Plan: left heart catheterization with selective left and right coronary angiography with left ventriculography and hemodynamics Allergies Allergy/AdvReac Type Severity Reaction Status Date / Time febuxostat Allergy Severe Swelling Verified 10/26/22 08:47 of Lip/Tongue/Throat adhesive Allergy Mild Unknown Verified 10/26/22 08:47 allopurinol Allergy Mild HIVES Verified 10/26/22 08:47 lisinopril Allergy Unknown Skin Verified 10/26/22 08:47 Reaction pollen extracts Allergy Unknown Sneezing Verified 10/26/22 08:47 tizanidine Allergy Unknown Pt does Verified 10/26/22 08:47 not remember reaction Home Medications Medication Instructions Recorded Confirmed Type isosorbide mononitrate 30 mg 30 mg PO DAILY #90 tabs 12/03/19 10/26/22 Rx tablet,extended release 24 hr tramadol 50 mg tablet 50 mg PO TID PRN pain #60 tabs 12/14/21 10/25/22 Rx blood-glucose meter, wireless #1 ea 02/22/22 04/04/22 Rx blood-glucose meter (OneTouch #1 ea 02/23/22 04/04/22 Rx Ultra2 Meter kit) atorvastatin 80 mg tablet 80 mg PO DAILY 03/27/22 10/26/22 History levothyroxine 50 mcg tablet 50 mcg PO DAILY 03/27/22 10/26/22 History blood sugar diagnostic (OneTouch #100 ea 04/04/22 04/04/22 Rx Ultra Test strips) citalopram 40 mg tablet 40 mg PO DAILY #90 tabs 04/06/22 10/26/22 Rx clopidogrel 75 mg tablet 75 mg PO DAILY #90 tabs 04/06/22 10/26/22 Rx colchicine 0.6 mg tablet See Rx Instructions .Route 04/11/22 10/25/22 Rx .COMPLEX #30 tabs cholecalciferol (vitamin D3) 1,250 See Rx Instructions .Route 06/05/22 10/25/22 Rx mcg (50,000 unit) capsule .COMPLEX #3 caps aspirin 81 mg chewable tablet 81 mg PO DAILY 10/25/22 10/26/22 History diphenhydramine HCl 50 mg capsule 50 mg PO HS PRN Allergy Symptoms 10/25/22 10/25/22 History Current Medications: Active Medications Sodium Chloride (Normal Saline Iv) 500 mls @ 100 mls/hr IV CONT .Q5H LENA Sedation/Anesthesia: No previous sedation/anesthesia problems (including family history). [facility] Past Medical History Medical History Chronic kidney disease, stage 3 Coronary artery disease Depression Essential hypertension Gout Mixed hyperlipidemia Osteoarthritis Prediabetes Surgical History Surgical History History of 2 sections History of bilateral knee arthroplasty History of cardiac catheterization History of cholecystectomy History of coronary artery stent placement History of inguinal hernia repair History of laminectomy History of tonsillectomy History of tubal ligation History of umbilical hernia repair Family History Family History Mother Diabetes mellitus Hypertension Father Family history of hypercholesterolemia Hypertension Family history of cardiovascular disease Sibling Family history of mental disorder Depression Family history of alcoholism Social History Social History Social History: Surrogate medical decision maker: Mary Anne Riggins, daughter. Code status: Full code. Smoking packs per day: 1 Smoking cigarettes per day: 20.0 Smoking status: Former smoker Tobacco type: cigarettes Second hand tobacco smoke exposure: No Alcohol intake: current Drinks per week: 2 Substance use: former Substance use type: does not use Lack of Transportation: No Lack of Food: Never True Current Housing: I Have Housing Concerned About Future Housing: No Difficulty Paying Gas/Electric Bills: No Difficulty Paying for Meds: No Currently Unemployed: No Education: Master's Degree or Higher Difficulty w/ Childcare or Family Care: No Living arrangements
--- NOTE | 2022-10-26 11:54 | PM.OP ---
Procedure Note - Brief Procedure Note - Brief Date of procedure: 10/26/22 CAD, angina, Abnormal Stress Test Procedure performed: left heart catheterization with selective left and right coronary angiography with left angiography and hemodynamics Surgeon: Edward Sykes MD Description of procedure: BRIEF HISTORY OF PRESENT ILLNESS: Patient is a pleasant 76-year-old female with a past medical history seen for hypertension and hyperlipidemia, diabetes mellitus, hypertension, history of prior stroke, CAD status post myocardial infarction 2004 with PCI to LAD, drug-eluting stent x2 to LAD April 2015 and OM x1 with complaints of progressive limiting angina chest discomfort shortness of breath 1 with Lexiscan nuclear stress test which revealed small area of mild ischemia in the basal anterior and anteroseptal sebastian EF 75% referred for coronary angiography for delineation of her coronary anatomy in light of progressive anginal symptoms. PROCEDURES PERFORMED: 1. Left heart catheterization 2. Selective left and right coronary angiography 3. Left ventriculography and hemodynamics 4. Moderate/conscious sedation administration CATHETERS UTILIZED: Left coronary system- 5 [place]ian JL4 catheter Right coronary system- 5 [place] JR4 catheter Left ventriculography and hemodynamics- 5 [place]ian angled pigtail catheter PROCEDURE IN DETAIL: After verbal and written informed consent was obtained the patient, risks, benefits, and alternatives explained in detail the patient agreed to proceed with the plan of care as outlined above. The patient was subsequently brought to the cardiac catheterization lab, placed on the cardiac catheterization table, and prepped and draped in the usual sterile fashion. Utilizing approximately 18cc of 1% subcutaneous Lidocaine, the right groin was then locally anesthetized. Utilizing the modified Seldinger technique, a 5 [place]ian arterial vascular access sheath was attempted and along the guidewire passed easily unable the arterial sheath suspected due to scar tissue and subcutaneous calcifications. As such, guidewire was removed and manual pressure was held for at least 15 minutes with excellent hemostasis. Access attempt on the left groin he lies 17 cc of 1% subcutaneous lidocaine for local anesthetic. Again, utilizing modified Seldinger technique initial access to the artery was obtained yet unable to pass guidewire and further attempts were then abandoned. Manual pressure was held for 12-14 minutes again with excellent hemostasis. No hematomas were noted bilaterally. Subsequently, assistance was requested from Dr. Blum of Interventional Cardiology who was able to gain access using vascular Doppler ultrasound and micropuncture technique in the right common femoral artery. Selective right femoral angiography revealed the arteriotomy site to be in the right common femoral artery easily mid to lower 1/3 of the femoral head. Through this access, coronary angiography was subsequently obtained in multiple standard re-projections. Following this, a 5 [place]ian angled pigtail catheter was advanced retrograde across aortic valve into the cavity of the left ventricle. Left ventriculography was performed and pullback across aortic valve was subsequently recorded. The vascular access sheath and angiographic catheters were flushed before and after catheter exchanges. At the conclusion of the diagnostic portion of the procedure, all angiographic guidewires and catheters were removed and the 5 [place]ian arterial vascular access sheath was then pulled and satisfactory hemostasis was achieved using manual compression. There no complications noted at the conclusion of the diagnostic portion of the study. MODERATE SEDATION/ANESTHESIA ADMINISTRATION: Patient reports no prior problems with sedation/anesthesia. Please see pre-sedation noted for physical examination documentation. Sedation start time was 1206 and end time was 1403 for a total in
--- NOTE | 2022-10-26 18:11 | SUR.PHASEII ---
Dr. Sykes at bedside several times. Notified of patient having complaints of left back pain/cramping. Pt taken for stat CT scan of abd/pelvis. MD notified of those findings. Orders placed. Pressure held on left site for a total of 20 minutes per MD order. Stated unable to see any obvious outside signs of bleeding. Pt unable to void, order received for pereira catheter. Held pressure for another 15 minutes. Bobbi Foote at bedside to evaluate patient. Report called to IMU. Notified of s/s to watch for.
[2022-10-26] MEDS: ACETAMINOPHEN 325 MG TABLET 650 MG PO ×2 (18:25→22:50)
[2022-10-26] MEDS: SODIUM CHLORIDE 0.9% IV 1,000 ML 100 ML IV CONT (18:30)
--- NOTE | 2022-10-26 19:48 | ADMGEN ---
This patient, Marcelina Riggins, was admitted to IMU Room 201-01. Patient/family oriented to hospital policies and general routines including ID bracelet, bed and alarms, visiting hours, pain management, procedures, bathroom and other care routines, personal items, smoking policy, room service/diet, and visiting hours. Information on how to activate the Rapid Response Team has been discussed. Patient/Family are encouraged to report perceived risks to care and to ask questions if they do not understand what they are told or what they should do.
[2022-10-26 22:28] LABS: Basophils Percent Auto 0.2 % (0.2-1.2); Eosinophils Percent Auto 0.1 % (0-4.4); Hematocrit 35.8 % (37.0-47.0); Hemoglobin 11.6 g/dL (12.0-15.0); Immature Granulocyte Absolute 0.05 K/mm3 (0.00-0.031); Immature Granulocyte Percent A 0.4 % (0-0.5); Lymphocytes Absolute Auto 1.55 K/mm3 (0.9-3.2); Lymphocytes Percent Auto 11.5 % (18.3-44.2); Mean Corpuscular HGB Conc 32.4 g/dl (32-36); Mean Corpuscular Hemoglobin 31.7 pg (26-34); Mean Corpuscular Volume 97.8 fl (80-100); Mean Platelet Volume 9.7 fl (7.4-10.4); Monocytes Absolute Auto 0.6 K/mm3 (0.1-0.6); Monocytes Percent Auto 4.7 % (2.6-8.5); Neutrophils Absolute Auto 11.2 K/mm3 (1.3-6.7); Neutrophils Percent Auto 83.1 % (45.5-73.1); Platelet Count Result 188 k/mm3 (150-375); Red Blood Count 3.66 M/mm3 (4.2-5.4); Red Cell Distribution Width 12.6 % (11.5-14.5); White Blood Count 13.5 K/mm3 (4.5-10.0)
[2022-10-27] VITALS: PULSE 60
[2022-10-27 02:00] VITALS: PULSE 62
[2022-10-27 04:00] VITALS: BP 137/57; PULSE 60; PULSE 62; RESP 16; TEMP 36.4; O2SAT 98
[2022-10-27] MEDS: SODIUM CHLORIDE 0.9% IV 500 ML 100 ML IV CONT (04:40)
[2022-10-27 06:00] VITALS: PULSE 58
[2022-10-27 06:33] LABS: Basophils Percent Auto 0.3 % (0.2-1.2); Eosinophils Absolute Auto 0.1 K/mm3 (0-0.3); Hematocrit 34.2 % (37.0-47.0); Hemoglobin 11.1 g/dL (12.0-15.0); Immature Granulocyte Absolute 0.04 K/mm3 (0.00-0.031); Immature Granulocyte Percent A 0.4 % (0-0.5); Lymphocytes Percent Auto 30.1 % (18.3-44.2); Mean Corpuscular HGB Conc 32.5 g/dl (32-36); Mean Corpuscular Volume 98.6 fl (80-100); Monocytes Absolute Auto 0.8 K/mm3 (0.1-0.6); Monocytes Percent Auto 8.1 % (2.6-8.5); Neutrophils Absolute Auto 6.2 K/mm3 (1.3-6.7); Neutrophils Percent Auto 60.1 % (45.5-73.1); Platelet Count Result 183 k/mm3 (150-375); Red Blood Count 3.47 M/mm3 (4.2-5.4); Red Cell Distribution Width 12.5 % (11.5-14.5); White Blood Count 10.3 K/mm3 (4.5-10.0)
[2022-10-27 08:00] VITALS: PULSE 68
[2022-10-27 08:18] VITALS: BP 149/64; PULSE 60; RESP 20; TEMP 36.3; O2SAT 100
--- NOTE | 2022-10-27 09:03 | PM.DS ---
DS: Admitting Diagnosis Discharge Date 10/27/22 Admitting Diagnosis CAD DS: Discharge Diagnosis Discharge Diagnosis (1) Coronary artery disease: Code(s): I25.10 - Atherosclerotic heart disease of samish coronary artery without angina pectoris Status: Acute Assessment and Plan: S/p elective coronary angiogram with findings and recommendations as detailed below: Conclusions: 1. Two vessel severe obstructive coronary disease with high-grade InStent restenosis distal LAD stent and diffuse InStent restenosis throughout up to 50-60%. High-grade tandem 80% and 90% stenosis of a very small caliber nondominant right coronary artery. 2. Patent previously placed stent in 1st obtuse marginal branch off the circumflex without InStent restenosis. 3. Preserved LV systolic function EF 70% without wall motion abnormalities, LVEDP 6 mm Hg, systemic hypertension without hemodynamically significant aortic stenosis. Recommendations: 1. Aggressive secondary risk factor modification and optimization medical therapy 2. Extensive discussion had with patient and Dr. Blum of Interventional Cardiology. Considerations for intervention to high-grade stenosis LAD discussed, however, given the diffuse nature of InStent restenosis in the potential complicated nature of intervention particular as she has overlapping layers of stent previously placed and the smaller caliber of the most distal stent discussed potential high risk nature of intervention as this may require several areas within the LAD versus recommendations for CABG with ZARATE to LAD to reduce symptoms, improve longevity and quality of life overall. Will discuss with Dr. Mitchell as well as additional methods in stools which may be required are not available at this institution. Patient verbalized understanding and agreed. Very lengthy discussion with held with patient's daughter over the phone explained patient condition, plan of care. DS: Summary Hospital Course Hospital Course: Admitted for observation following elective left heart catheterization complicated by left iliopsoas hematoma. She remained stable overnight with no significant change in H&H, no bleeding or hematoma at the arterial access site. Able to ambulate without any issues or significant pain. OK for discharge home today with close follow up. Time Spent with Patient Time attestation: Total time spent providing and/or coordinating discharge services: Exam Const: General: comfortable, no acute distress, alert and awake Orientation/consciousness: patient oriented x3 HENMT: Head: normal to inspection Eyes: General: appearance normal, both eyes and all related structures Pupils: Equal, round and reactive pupils present Neck: Neck: normal visual inspection, supple and no JVD Carotids: normal carotid upstroke Resp: Effort & Inspection: normal respiratory effort Auscultation: clear to auscultation bilaterally Cardio: Rate: regular rate Rhythm: regular rhythm Heart sounds: S1 normal heart sound present, S2 normal heart sound present and no murmurs GI: Auscultation: normal bowel sounds Skin: General skin exam: normal color Other: Right and Left arterial access sites free from bleeding, hematoma, pain, swelling. Neuro: General: patient oriented x3 Cranial nerves: Yes Equal, round and reactive pupils present Extrem: General: normal to inspection Psych: Appearance: grossly normal Mental Status: mental status grossly normal DS: Data Data Completed and Pending Labs on day of discharge: Labs from last 24 hours 10/27/22 10/26/22 10/26/22 06:01 22:16 09:07 WBC 10.3 H 13.5 H RBC 3.47 L 3.66 L Hgb 11.1 L 11.6 L Hct 34.2 L 35.8 L MCV 98.6 97.8 MCH 32.0 31.7 MCHC 32.5 32.4 RDW 12.5 12.6 Plt Count 183 188 MPV 10.0 9.7 Immature Gran % (Auto) 0.4 0.4 Neut % (Auto) 60.1 83.1 H Lymph % (Auto) 30.1 11.5 L [place] % (Auto) 8.1 4.7 Eos % (Auto) 1.0 0.1 Baso %
== END 2022-10-27 11:29 | disposition home or self-care (01) | DRG 287 ==
LOC: ANHIMU 10-27 09:03 → ANH3MEDSUR 10-30 10:14 → ANHCATHLAB 10-30 10:16 → ANH3MEDSUR 10-30 10:16
PROVIDERS: Admitting Provider Internal Medicine Cardiovascular Disease; PCP Emergency Medicine; Visit Provider Nurse Practitioner
PROC: 4A023N7 Measurement of Cardiac Sampling and Pressure, Left Heart, Percutaneous Approach (ICD-10-PCS; CPT 93452; principal; 2022-10-26 10:00)
DX: T82.855A Stenosis of coronary artery stent, initial encounter (principal); I25.119 Atherosclerotic heart disease of native coronary artery with unspecified angina pectoris; E78.5 Hyperlipidemia, unspecified; E11.9 Type 2 diabetes mellitus without complications; I25.2 Old myocardial infarction; I10 Essential (primary) hypertension; Z86.73 Personal history of transient ischemic attack (TIA), and cerebral infarction without residual deficits; Z95.5 Presence of coronary angioplasty implant and graft
CPT/HCPCS: 36415; 74177; 80048; 85025; 93458; A9270; C1887; C1894; J1644; J2250; J3010; J7030; J7040; Q9967

== ENCOUNTER 2022-11-25 14:31 | Emergency (ER) | payer MEDICARE, SELFPAY ==
--- NOTE | ~2022-11-25 | XR_ITS ---
EXAMINATION: XR chest 2V Exam Date/Time: 11/25/2022 14:45 CDT HISTORY: CHEST PRESSURE CARDIAC CATH NOV 16 2022 Comparison: 02/08/2022. RESULT: Lines, tubes, and devices: Coronary artery stents. Lungs and pleura: Clear. Cardiomediastinal silhouette: Stable. Other: No acute osseous or upper abdominal finding. IMPRESSION: No acute cardiopulmonary process. Reviewed, dictated and finalized at location K.
[2022-11-25 14:21] VITALS: BP 160/78; PULSE 60; RESP 20; TEMP 36.5; O2SAT 99
--- NOTE | 2022-11-25 14:32 | ECG_ITS ---
Measurements Intervals [place] Rate: 57 P: 66 AR: 140 QRS: 38 QRSD: 98 T: 104 QT: 423 QTc: 414 Interpretive Statements SINUS BRADYCARDIA BORDERLINE ST-T WAVE ABNORMALITY- ANT/HIGH LAT LEADS BASELINE ARTIFACT- I, II, III, AVR, AVL, AVF BORDERLINE ECG COMPARED TO ECG 02/08/2022 16:55:58 SINUS BRADYCARDIA NOW PRESENT Electronically Signed On 11-25-2022 20:50:54 CDT by Martin Anne D.O.
[2022-11-25 14:53] LABS: Basophils Absolute Auto 0.1 K/mm3 (0.0-0.1); Basophils Percent Auto 0.4 % (0.2-1.2); Eosinophils Absolute Auto 0.3 K/mm3 (0-0.3); Hematocrit 40.5 % (37.0-47.0); Immature Granulocyte Absolute 0.08 K/mm3 (0.00-0.031); Immature Granulocyte Percent A 0.6 % (0-0.5); Lymphocytes Percent Auto 25.8 % (18.3-44.2); Mean Corpuscular HGB Conc 32.1 g/dl (32-36); Mean Corpuscular Hemoglobin 31.8 pg (26-34); Mean Platelet Volume 9.7 fl (7.4-10.4); Monocytes Percent Auto 7.4 % (2.6-8.5); Neutrophils Absolute Auto 8.7 K/mm3 (1.3-6.7); Neutrophils Percent Auto 63.8 % (45.5-73.1); Platelet Count Result 260 k/mm3 (150-375); Red Blood Count 4.09 M/mm3 (4.2-5.4); Red Cell Distribution Width 13.7 % (11.5-14.5); White Blood Count 13.6 K/mm3 (4.5-10.0)
[2022-11-25 15:04] LABS: Alanine Aminotransferase 30 U/L (6-35); Albumin Level 3.5 g/dL (3.5-5.1); Alkaline Phosphatase 87 U/L (38-126); Anion Gap 3 mmol/L (8-16); Aspartate Amino Transferase 26 U/L (14-36); Bilirubin,Total 0.9 mg/dL (0.2-1.3); Blood Urea Nitrogen 30 mg/dL (7-17); Carbon Dioxide 29 mmol/L (22-30); Chloride 105 mmol/L (98-107); Estimated CRCL calculation 37 ml/min; Estimated Glomerular Filt Rate 44; Glucose 110 mg/dL (65-110); Lipase 229 U/L (23-300); Potassium 4.2 mmol/L (3.4-5.0); Sodium 137 mmol/L (137-145)
[2022-11-25 15:09] LABS: Prothrombin Time 13.7 Seconds (11.1-14.7)
[2022-11-25 15:10] LABS: Partial Thromboplastin Time 25.5 SECONDS (22.3-36.8)
[2022-11-25 15:15] LABS: Troponin I < 0.012 ng/mL (0.000-0.034)
--- NOTE | 2022-11-25 15:28 | ED.CHESTPAIN ---
HPI - Chest Pain General Chief Complaint: Chest Pain Stated Complaint: chest pain Source: patient, EMS, RN notes reviewed and old records reviewed Mode of arrival: EMS Limitations: no limitations History of Present Illness HPI narrative: This is a 76 year old female with history of hypothyroid, CAD s/p stent x 8 , hyperlipidemia who presents for evaluation of midsternal pressure. She states she developed substernal chest pain that radiated to her back around 10 am. She states she had just finished walking her dogs. She developed this chest pressure so he took aspirin 324 mg and nitroglycerin x 1. She is unsure if the nitro helped her pain. she took another nitro glycerin later when she called 911. On arrival she reports her chest pressure has resolved. She denies associated nausea, vomiting, diaphoresis, sob, cough or fever. She states she had a stent placed in her LAD on 11/16/22. 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 Sykes Related Data Home Medications Medication Instructions Recorded Confirmed atorvastatin 80 mg tablet 80 mg PO DAILY 03/27/22 10/26/22 levothyroxine 50 mcg tablet 50 mcg PO DAILY 03/27/22 10/26/22 aspirin 81 mg chewable tablet 81 mg PO DAILY 10/25/22 10/26/22 diphenhydramine HCl 50 mg capsule 50 mg PO HS PRN Allergy Symptoms 10/25/22 10/25/22 Allergies Allergy/AdvReac Type Severity Reaction Status Date / Time febuxostat Allergy Severe Swelling Verified 11/25/22 15:50 of Lip/Tongue/Throat adhesive Allergy Mild Unknown Verified 11/25/22 15:50 allopurinol Allergy Mild HIVES Verified 11/25/22 15:50 lisinopril Allergy Unknown Skin Verified 11/25/22 15:50 Reaction pollen extracts Allergy Unknown Sneezing Verified 11/25/22 15:50 tizanidine Allergy Unknown Pt does Verified 11/25/22 15:50 not remember reaction Review of Systems Constitutional: Constitutional: Denies weakness Cardiovascular: Cardiovascular: Reports chest pain, Denies syncope, Denies rapid heart rate, Denies irregular heart rhythm, Denies leg edema and Denies dyspnea Respiratory: Respiratory: Denies chest congestion, Denies hemoptysis, Denies excessive phlegm production and Denies dyspnea Gastrointestinal: Gastrointestinal: Denies abdominal pain, Denies hematochezia, Denies diarrhea and Denies vomiting Genitourinary: Genitourinary: Denies hematuria and Denies dysuria Musculoskeletal: Musculoskeletal: Denies joint swelling, Denies loss of height and Denies muscle weakness Neurologic: Denies syncope, Denies focal weakness and Denies weakness PMFSH Past Medical History Medical History Chronic kidney disease, stage 3 Coronary artery disease Depression Essential hypertension Gout Mixed hyperlipidemia Osteoarthritis Prediabetes Surgical History Surgical History History of 2 sections History of bilateral knee arthroplasty History of cardiac catheterization History of cholecystectomy History of coronary artery stent placement History of inguinal hernia repair History of laminectomy History of tonsillectomy History of tubal ligation History of umbilical hernia repair Family History Family History Mother Diabetes mellitus Hypertension Father Family history of hypercholesterolemia Hypertension Family history of cardiovascular disease Sibling Family history of mental disorder Depression Family history of alcoholism Social History Social History Social History: Surrogate medical decision maker: Mary Anne Riggins, daughter. Code status: Full code. Smoking packs per day: 1 Smoking cigarettes per day: 20.0 Years smoked: 20 Smoking pack-years: 20.00 Smoking status: Former smoker Tobacco type: cigarettes Alcohol intake: current Drinks per week: 3 Substance use: former
[2022-11-25 15:35] VITALS: BP 154/63; PULSE 58; RESP 18; O2SAT 99
[2022-11-25 16:30] VITALS: BP 154/63; PULSE 58; RESP 16; O2SAT 99
[2022-11-25 17:00] VITALS: BP 131/75; PULSE 59; RESP 18; O2SAT 99
[2022-11-25 18:25] LABS: Troponin I < 0.012 ng/mL (0.000-0.034)
[2022-11-25 19:30] VITALS: BP 134/63; PULSE 68; RESP 16; O2SAT 100
== END 2022-11-25 19:30 | disposition home or self-care (01) ==
PROVIDERS: Emergency Provider General Practice; PCP Emergency Medicine
DX: R07.9 Chest pain, unspecified (principal); E03.9 Hypothyroidism, unspecified; I25.10 Atherosclerotic heart disease of native coronary artery without angina pectoris; E78.5 Hyperlipidemia, unspecified; I12.9 Hypertensive chronic kidney disease with stage 1 through stage 4 chronic kidney disease, or unspecified chronic kidney disease; N18.30 Chronic kidney disease, stage 3 unspecified; Z87.891 Personal history of nicotine dependence
CPT/HCPCS: 36415; 71046; 80053; 83690; 84484; 85025; 85610; 85730; 93005; 99284

== ENCOUNTER 2023-08-25 22:29 | Emergency (ER) | payer MEDICARE, SELFPAY ==
--- NOTE | ~2023-08-25 | CT_ITS ---
EXAMINATION: CT brain wo con DATE: 08/25/2023 23:52 INDICATION: Fall. TECHNIQUE: Computed tomography (CT) of the head was performed without intravenous contrast. The mA wa s adjusted according to patient size. Iterative reconstruction technique was employed. The dose-lengt h product was 681.00 mGy-cm. COMPARISON: None FINDINGS: There is chronic encephalomalacia involving right frontal parietal occipital region and pos terior right insula. There is old infarct involving the left basal ganglia and internal capsule. Ther e are scattered areas of low attenuation in the cerebral white matter. There is no intracranial hemor rhage, acute infarction, or abnormal intracranial mass lesion. There is ex vacuo dilatation of trigon e of right lateral ventricle. There are likely changes of ocular lens replacement surgeries. There is mild mucosal thickening in the paranasal sinuses. The mastoid air cells are normal. IMPRESSION: 1. Old infarct involving right frontal parietal occipital region and posterior right insula. Old infa rct in the left basal ganglia and left internal capsule. 2. Moderate nonspecific cerebral white matter disease, which likely represents chronic small vessel i schemic disease. Reviewed, dictated and finalized at location A. IAL [employer] IMPRESSION: 1. Old infarct involving right frontal parietal occipital region and posterior right insula. Old infarct in the left basal ganglia and left internal capsule. 2. Moderate nonspecific cerebral white matter disease, which likely represents chronic small vessel ischemic disease.
--- NOTE | ~2023-08-25 | CT_ITS ---
EXAMINATION: CT facial & cervical spine wo DATE: 08/25/2023 23:52 INDICATION: Fall. TECHNIQUE: Computed tomography (CT) of the maxillofacial region and cervical spine was performed with out intravenous contrast. Automated exposure control and iterative reconstruction technique were empl oyed. The dose-length product was 445.26 mGy-cm. COMPARISON: None FINDINGS: MAXILLOFACIAL CT: There are likely changes of ocular lens replacement surgeries. There are fracture deformities of the nasal bones. The mastoid air cells are normal. CERVICAL SPINE CT: Bone alignment is normal. Vertebral body heights are normal. Intervertebral disc heights are normal. The following disc levels are specifically discussed: C2-C3: There is no uncovertebral joint osteoarthritis. There is severe bilateral facet joint osteoart hritis. There is mild left neural foraminal stenosis. There is no central canal stenosis. C3-C4: There is mild bilateral uncovertebral joint osteoarthritis. There is severe bilateral facet ramirez int osteoarthritis. There is mild left neural foraminal stenosis. There is no central canal stenosis. C4-C5: There is mild bilateral uncovertebral joint osteoarthritis. There is severe bilateral facet ramirez int osteoarthritis. There is no neural foraminal stenosis. There is no central canal stenosis. C5-C6: There is no uncovertebral joint osteoarthritis. There is severe right and mild left facet join t osteoarthritis. There is no neural foraminal stenosis. There is no central canal stenosis. C6-C7: There is no uncovertebral joint osteoarthritis. There is moderate right and mild left facet ramirez int osteoarthritis. There is no neural foraminal stenosis. There is mild central canal stenosis. C7-T1: There is no uncovertebral joint osteoarthritis. There is severe bilateral facet joint osteoart hritis. There is mild bilateral neural foraminal stenosis. There is no central canal stenosis. IMPRESSION: 1. Age-indeterminate fracture deformities of the nasal bones. 2. Mild cervical spondylosis. Reviewed, dictated and finalized at location A. ROPOLOGIST
[2023-08-25 22:36] VITALS: BP 190/78; PULSE 63; RESP 17; TEMP 36.3; O2SAT 100
[2023-08-26] MEDS: ACETAMINOPHEN 500 MG TABLET 1000 MG PO (00:47)
[2023-08-26] MEDS: TETANUS,DIPHTHERIA,AC PERTUSSIS ADULT (0.5 ML) BOOSTRIX IM (00:47)
--- NOTE | 2023-08-26 01:19 | ED.GENADULT ---
HPI - General Adult General Chief complaint: Fall Stated complaint: fell on face on concrete- facial lac Time Seen by Provider: 08/25/23 23:49 History of Present Illness HPI narrative: This is a 69-year-old female presenting ED after a fall. She was walking her 2 small dogs when they pulled her off balance and she fell hitting a concrete step. She sustained a laceration to her nose. She is also on Plavix. No loss of consciousness. No neurologic deficits. No persistent nausea or vomiting. No altered mental status. Related Data Home Medications Medication Instructions Recorded Confirmed aspirin 81 mg chewable tablet 81 mg PO DAILY 10/25/22 01/09/23 Allergies Allergy/AdvReac Type Severity Reaction Status Date / Time febuxostat Allergy Severe Swelling Verified 06/20/23 13:09 of Lip/Tongue/Throat adhesive Allergy Mild Unknown Verified 06/20/23 13:09 allopurinol Allergy Mild HIVES Verified 06/20/23 13:09 lisinopril Allergy Unknown Skin Verified 06/20/23 13:09 Reaction pollen extracts Allergy Unknown Sneezing Verified 06/20/23 13:09 tizanidine Allergy Unknown Pt does Verified 06/20/23 13:09 not remember reaction PMFSH Past Medical History Medical History Chronic kidney disease, stage 3 Coronary artery disease Depression Essential hypertension Gout Mixed hyperlipidemia Osteoarthritis Prediabetes Surgical History Surgical History History of 2 sections History of bilateral knee arthroplasty History of cardiac catheterization History of cholecystectomy History of coronary artery stent placement History of inguinal hernia repair History of laminectomy History of tonsillectomy History of tubal ligation History of umbilical hernia repair Family History Family History Mother Diabetes mellitus Hypertension Father Family history of hypercholesterolemia Hypertension Family history of cardiovascular disease Sibling Family history of mental disorder Depression Family history of alcoholism Social History Social History Social History: Surrogate medical decision maker: Mary Anne Riggins, daughter. Code status: Full code. Caffeine-Coffee/tea/soda Smoking packs per day: 1 Smoking cigarettes per day: 20.0 Years smoked: 20 Smoking pack-years: 20.00 Smoking status: Former smoker Tobacco type: cigarettes Smoking end date: 07/16/79 Alcohol intake: current Drinks per week: 3 Substance use: current Substance use type: marijuana Other substance usage details: gummies-1/2 a gummie daily HS Lack of Transportation: No Lack of Food: Never True Current Housing: I Have Housing Concerned About Future Housing: No Difficulty Paying Gas/Electric Bills: No Difficulty Paying for Meds: No Currently Unemployed: No Education: Master's Degree or Higher Difficulty w/ Childcare or Family Care: No Living arrangements: alone Additional living arrangements comments: The patient lives in her [place]. 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 Spiritual care concerns: No Exam Narrative: APPEARANCE: No apparent distress. EYES: EOMI, NOSE: 1.5 cm irregular avulsion over the bridge of nose NECK: Trachea midline RESPIRATORY: No increased rate of breathing CARDIOVASCULAR: RRR, ABDOMINAL: Non-distended MUSCULOSKELETAl: No obvious deformities NEURO: Alert. Cranial nerves 2-12 grossly intact. Sensation light touch, motor function cerebellar function intact for 4 extremities. Gait exam was normal. SKIN:: Warm, dry. Normal color PSYCHIATRIC: Normal affect Course Vital Signs Vital signs: Vital Signs Temperature 97.3 F L 08/25/23 22:36 Pulse Rate 63
[2023-08-26] MEDS: AMOXICILLIN/CLAVULANATE K 875-125 MG TAB 1 TABLET PO (01:42)
[2023-08-26 01:48] VITALS: BP 174/80; PULSE 82; RESP 15; O2SAT 100
== END 2023-08-26 01:48 | disposition home or self-care (01) ==
LOC: ANHED 08-26 01:44
PROVIDERS: Emergency Provider Emergency Medicine; PCP Emergency Medicine
DX: S02.2XXA Fracture of nasal bones, initial encounter for closed fracture (principal); S01.21XA Laceration without foreign body of nose, initial encounter; I12.9 Hypertensive chronic kidney disease with stage 1 through stage 4 chronic kidney disease, or unspecified chronic kidney disease; N18.30 Chronic kidney disease, stage 3 unspecified; E78.2 Mixed hyperlipidemia; I25.10 Atherosclerotic heart disease of native coronary artery without angina pectoris; Z23 Encounter for immunization; Z79.82 Long term (current) use of aspirin; W18.39XA Other fall on same level, initial encounter
CPT/HCPCS: 12011; 70450; 70486; 72125; 90471; 90715; 99284; A9270

== ENCOUNTER 2023-09-01 14:23 | Emergency (ER) | payer MEDICARE, SELFPAY ==
[2023-09-01 14:29] VITALS: PULSE 70; RESP 16; TEMP 36.4; O2SAT 99
--- NOTE | 2023-09-01 15:05 | ED.SKABFB ---
HPI - Skin/Abscess/Foreign Bdy General Chief complaint: Skin/Abscess/Foreign Body Stated complaint: Stitches Removal Time Seen by Provider: 09/01/23 14:46 Source: patient and RN notes reviewed Mode of arrival: ambulatory Limitations: no limitations History of Present Illness HPI narrative: Patient presents today requesting suture removal from her nose. Four sutures were placed in the ER at [facility] on 08/26/2023 after patient fell at home while walking her dogs. She struck her face on the cement. Subsequent nasal bone fracture and nasal bridge laceration. Related Data Home Medications Medication Instructions Recorded Confirmed aspirin 81 mg chewable tablet 81 mg PO DAILY 10/25/22 01/09/23 Allergies Allergy/AdvReac Type Severity Reaction Status Date / Time febuxostat Allergy Severe Swelling Verified 06/20/23 13:09 of Lip/Tongue/Throat adhesive Allergy Mild Unknown Verified 06/20/23 13:09 allopurinol Allergy Mild HIVES Verified 06/20/23 13:09 lisinopril Allergy Unknown Skin Verified 06/20/23 13:09 Reaction pollen extracts Allergy Unknown Sneezing Verified 06/20/23 13:09 tizanidine Allergy Unknown Pt does Verified 06/20/23 13:09 not remember reaction Review of Systems Review of Systems: CONSTITUTIONAL: Denies body aches, fever, chills, or sweats. EYES: Denies visual changes, redness, or discharge. ENT: Denies rhinorrhea, congestion, sore throat, or otalgia. CARDIOVASCULAR: Denies chest pain, palpitations, or edema. RESPIRATORY: Denies cough or dyspnea. GASTROINTESTINAL: Denies abdominal pain, nausea, vomiting, or diarrhea. GENITOURINARY: Denies dysuria or hematuria. SKIN: Denies rash, itching. + sutures to nasal bridge MUSCULOSKELETAL: Denies back pain, joint pain, or myalgia. NEUROLOGIC: Denies headache, numbness, tingling, or weakness. PSYCH: Denies depression or anxiety. [facility] Past Medical History Medical History Chronic kidney disease, stage 3 Coronary artery disease Depression Essential hypertension Gout Mixed hyperlipidemia Osteoarthritis Prediabetes Surgical History Surgical History History of 2 sections History of bilateral knee arthroplasty History of cardiac catheterization History of cholecystectomy History of coronary artery stent placement History of inguinal hernia repair History of laminectomy History of tonsillectomy History of tubal ligation History of umbilical hernia repair Family History Family History Mother Diabetes mellitus Hypertension Father Family history of hypercholesterolemia Hypertension Family history of cardiovascular disease Sibling Family history of mental disorder Depression Family history of alcoholism Social History Social History Social History: Surrogate medical decision maker: Mary Anne Riggins, daughter. Code status: Full code. Caffeine-Coffee/tea/soda Smoking packs per day: 1 Smoking cigarettes per day: 20.0 Years smoked: 20 Smoking pack-years: 20.00 Smoking status: Former smoker Tobacco type: cigarettes Smoking end date: 07/16/79 Alcohol intake: current Drinks per week: 3 Substance use: current Substance use type: marijuana Other substance usage details: gummies-1/2 a gummie daily HS Lack of Transportation: No Lack of Food: Never True Current Housing: I Have Housing Concerned About Future Housing: No Difficulty Paying Gas/Electric Bills: No Difficulty Paying for Meds: No Currently Unemployed: No Education: Master's Degree or Higher Difficulty w/ Childcare or Family Care: No Living arrangements: alone Additional living arrangements comments: The patient lives in her own home in [facility]. Additi
== END 2023-09-01 15:10 | disposition home or self-care (01) ==
PROVIDERS: Emergency Provider Nurse Practitioner; PCP Emergency Medicine
DX: S01.21XD Laceration without foreign body of nose, subsequent encounter (principal); W19.XXXD Unspecified fall, subsequent encounter; Z87.891 Personal history of nicotine dependence; I13.10 Hypertensive heart and chronic kidney disease without heart failure, with stage 1 through stage 4 chronic kidney disease, or unspecified chronic kidney disease; N18.30 Chronic kidney disease, stage 3 unspecified; I25.10 Atherosclerotic heart disease of native coronary artery without angina pectoris; M10.9 Gout, unspecified; R73.03 Prediabetes; M19.90 Unspecified osteoarthritis, unspecified site; Z96.653 Presence of artificial knee joint, bilateral; Z95.5 Presence of coronary angioplasty implant and graft; Z79.82 Long term (current) use of aspirin
CPT/HCPCS: 99211; G0463

== ENCOUNTER 2024-03-17 15:02 | Emergency (ER) | payer MEDICARE, SELFPAY ==
--- NOTE | 2024-03-17 15:04 | ED.LOWEXIN ---
HPI - Extremity Injury (Lower) General Chief Complaint: Extremity Problem,Nontraumatic Stated Complaint: Injured Right Foot Time Seen by Provider: 03/17/24 15:04 Source: patient Mode of arrival: ambulatory Limitations: no limitations History of Present Illness HPI Narrative: Coleen is a 78-year-old female patient presenting to the clinic today with complaints of right foot pain, redness, and swelling to the top of her right foot this been going on since Sunday. She reports that she has no injury to the right foot. States that is getting more painful to walk. History of blood clots in the past however she has been taking her Plavix and aspirin. States that the area is tender to palpation and swollen. Thought that she may have gout so she trialed colchicine and this did not help. She denies any fever or chills currently. She is diabetic. Related Data Home Medications Medication Instructions Recorded Confirmed aspirin 81 mg chewable tablet 81 mg PO DAILY 10/25/22 03/17/24 Allergies Allergy/AdvReac Type Severity Reaction Status Date / Time febuxostat Allergy Severe Swelling Verified 03/17/24 15:22 of Lip/Tongue/Throat adhesive Allergy Mild Unknown Verified 03/17/24 15:22 allopurinol Allergy Mild HIVES Verified 03/17/24 15:22 lisinopril Allergy Unknown Skin Verified 03/17/24 15:22 Reaction pollen extracts Allergy Unknown Sneezing Verified 03/17/24 15:22 tizanidine Allergy Unknown Pt does Verified 03/17/24 15:22 not remember reaction Review of Systems Review of Systems: Pertinent positives per HPI. Patient denies any fever, chills, rash, headache, visual changes, dizziness, cough, runny nose, sore throat, shortness of breath, chest pain, palpitations, nausea, vomiting, diarrhea, constipation, abdominal pain, or any urinary issues. [facility] Past Medical History Medical History Chronic kidney disease, stage 3 Coronary artery disease S/p 7 stents, on plavix. Corpsman was Dr. 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 Depression Essential hypertension Gout Mixed hyperlipidemia Osteoarthritis Prediabetes Surgical History Surgical History History of 2 sections History of bilateral knee arthroplasty History of cardiac catheterization History of cholecystectomy History of coronary artery stent placement History of inguinal hernia repair History of laminectomy History of tonsillectomy History of tubal ligation History of umbilical hernia repair Family History Family History Mother Diabetes mellitus Hypertension Father Family history of hypercholesterolemia Hypertension Family history of cardiovascular disease Sibling Family history of mental disorder Depression Family history of alcoholism Social History Social History Social History: Surrogate medical decision maker: Mary Anne Riggins, daughter. Code status: Full code. Caffeine-Coffee/tea/soda Smoking packs per day: 1 Smoking cigarettes per day: 20.0 Years smoked: 20 Smoking pack-years: 20.00 Smoking status: Former smoker Tobacco type: cigarettes Smoking end date: 07/16/79 Alcohol intake: current Drinks per week: 3 Substance use: current Substance use type: marijuana Other substance usage details: gummies-1/2 a gummie daily HS Lack of Transportation: No Lack of Food: Never True Current Housing: I Have Housing Concerned About Future Housing: No Difficulty Paying Gas/Electric Bills: No Difficulty Paying for Meds: No Currently Unemployed: No Education: Master's Degree or Higher Difficulty w/ Childcare or Family Care: No Living arrangements: alone Additional living arrangements comments: The patient lives in her own home [place] [facility]. Additional oc
[2024-03-17 15:21] VITALS: BP 168/73; PULSE 72; RESP 16; TEMP 36.2; O2SAT 99
== END 2024-03-17 15:55 | disposition home or self-care (01) ==
PROVIDERS: Emergency Provider Nurse Practitioner Family; PCP Emergency Medicine
DX: L03.115 Cellulitis of right lower limb (principal); I12.9 Hypertensive chronic kidney disease with stage 1 through stage 4 chronic kidney disease, or unspecified chronic kidney disease; E11.22 Type 2 diabetes mellitus with diabetic chronic kidney disease; N18.30 Chronic kidney disease, stage 3 unspecified; I25.10 Atherosclerotic heart disease of native coronary artery without angina pectoris; M10.9 Gout, unspecified; E78.2 Mixed hyperlipidemia; M19.90 Unspecified osteoarthritis, unspecified site; Z96.653 Presence of artificial knee joint, bilateral; Z95.5 Presence of coronary angioplasty implant and graft; Z87.891 Personal history of nicotine dependence; F12.90 Cannabis use, unspecified, uncomplicated; Z86.2 Personal history of diseases of the blood and blood-forming organs and certain disorders involving the immune mechanism; Z79.82 Long term (current) use of aspirin; Z79.01 Long term (current) use of anticoagulants
CPT/HCPCS: 99213; G0463

== ENCOUNTER 2025-05-14 11:11 | Inpatient (IN) | payer MEDICARE, SELFPAY ==
--- NOTE | ~2025-05-14 | US_ITS ---
EXAM/PROCEDURE: US venous doppler LE BI HISTORY: Pain in right lower extremity COMPARISON: None available. TECHNIQUE: Grayscale, color Doppler, and spectral analysis. FINDINGS: All major venous structures appear patent and compressible from the groin to the popliteal, at least, on either side. No significant abnormality is seen. No adenopathy is seen. IMPRESSION: No acute findings. Reviewed, dictated and finalized at location A. IMPRESSION: No acute findings.
--- NOTE | ~2025-05-14 | CT_ITS ---
EXAMINATION: CT foot RT wo con DATE: 05/14/2025 13:23 INDICATION: Right foot and ankle pain. TECHNIQUE: High resolution computed tomography (CT) of the right foot and ankle was performed without intravenous contrast. Additional sagittal and coronal reconstructions were performed. Automated exposure control and iterative reconstruction technique were employed. The dose-length product was 591.33 mGy-cm. COMPARISON: 05/14/2025 FINDINGS: Diffuse osteopenia. Bone alignment is normal. No fractures. Polyarticular osteoarthritis, moderate severity at the calcaneocuboid and multiple tarsometatarsal joints, mild to moderate at the ankle and talonavicular joints and mild at the ankle and many of the remaining joints in the right foot. Small plantar calcaneal spur and small amount of enthesopathic ossification the distal Achilles tendon. There is chondrocalcinosis at the ankle joint as well as dystrophic calcifications and/or heterotopic ossification along many of the stabilizing ligaments of the medial and lateral ankle, the spring ligament complex, the medial collateral ligament at the first metatarsophalangeal joint and along the tibialis posterior and peroneus longus tendons which raises possibility of a crystalline deposition diseases such as gout, calcium pyrophosphate deposition or hydroxyapatite deposition disease or other derang ement of calcium homeostasis. There are however no evident erosions to more specifically suggest gout. IMPRESSION: 1. Polyarticular osteoarthritis, mild to moderate severity at the right foot and ankle. No acute osseous abnormality. 2. 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 Reviewed, dictated and finalized at location A. IMPRESSION: 1. Polyarticular osteoarthritis, mild to moderate severity at the right foot an d ankle. No acute osseous abnormality. 2. 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
--- NOTE | ~2025-05-14 | XR_ITS ---
EXAMINATION: XR ankle RT min 3V, 05/14/2025 11:20 CDT HISTORY: Pain, no known injury COMPARISON: No comparisons available. Findings: No acute fracture or malalignment. Moderate to severe degenerative changes Soft tissues unremarkable. Impression: No acute fracture or malalignment. Reviewed, dictated and finalized at location P. Impression: No acute fracture or malalignment.
[2025-05-14 11:10] VITALS: BP 156/70; PULSE 60; RESP 16; TEMP 36.7; O2SAT 99
--- OUTSIDE RECORDS SUMMARY | 2025-05-14 12:43 | XMS_ITS | Encounter Summary ---
Author Organization [facility] Address [address] [facility] [address] [place] [address] Care Team Providers Care Lieutenant/Deputy Name Role Phone Tomasz Mcqueen Primary Care Provider + Maurizio Diana MD Primary Care Provider Marquis Simpson MD Primary Care Provider [phone] Encounter Details Date Type Department Care Team (Late st Contact Info) Description 04/30/2015 Orders Only [facility] ProviderLoreta MD [address] [place] [address] Social History Tobacco Use Types Packs/Day Years Used Date Smoking Tobacco: Never Assessed Comments Unknown Sex and Gender Information Value Date Recorded Sex Assigned at Not on file Legal Sex Female 12:24 AM CONTINUING EDUCATION SPECIALIST Gender Identity Not on file Sexual Orientation Not on file documented as of this encounter Plan of Treatment Not on file documented as of this encounter Procedures Procedure Name Priority Date/Time Associated Diagnosis Comments CARDIOLOGY REPORT 04/30/2015 documented in this encounter Results * CARDIOLOGY REPORT (04/30/2015) Anatomical Region Laterality Modality Other Narrative 04/30/2015 Ordered by an unspecified provider. Historical Provider [facility] Final Result documented in this encounter Visit Diagnoses Not on filedocumented in this encounter Care Teams Lieutenant/Deputy Relationship Specialty Start Date End Date Tomasz Mcqueen PA [address] [place] [address] PCP - General Physician Scientific Software Engineer 03/21/22 04/01/24 Maurizio Diana MD [address] [place] [address] [address] [place], [place] [id number] PCP - General Family Medicine 04/02/24 04/07/25 Marquis Simpson MD [address] [place] [address] [address] [place], [place] [id number] PCP - General Family Medicine 04/08/25 documented as of this encounter
--- OUTSIDE RECORDS SUMMARY | 2025-05-14 12:43 | XMS_ITS | Encounter Summary ---
Author Organization [facility] Address [address] [facility] [address] [place] [address] Care Team Providers Care Dispatcher Service Or Work Name Role Phone Tomasz Mcqueen Primary Care Provider + Maurizio Diana MD Primary Care Provider [phone] Marquis Simpson MD Primary Care Provider [phone] Encounter Details Date Type Department Care Team (Late st Contact Info) Description 03/29/2016 Orders Only [facility] ProviderLoreta MD [address] [place] [address] Social History Tobacco Use Types Packs/Day Years Used Date Smoking Tobacco: Never Assessed Comments Unknown Sex and Gender Information Value Date Recorded Sex Assigned at Not on file Legal Sex Female 12:24 AM IMPLEMENTATION ADVISOR Gender Identity Not on file Sexual Orientation Not on file documented as of this encounter Plan of Treatment Not on file documented as of this encounter Procedures Procedure Name Priority Date/Time Associated Diagnosis Comments CARDIOLOGY REPORT 03/29/2016 documented in this encounter Results * CARDIOLOGY REPORT (03/29/2016) Anatomical Region Laterality Modality Other Narrative 03/29/2016 Ordered by an unspecified provider. Historical Provider [facility] Final Result documented in this encounter Visit Diagnoses Not on filedocumented in this encounter Care Teams Dispatcher Service Or Work Relationship Specialty Start Date End Date Tomasz Mcqueen PA [address] [place] [address] PCP - General Physician Compounder Helper 03/21/22 04/01/24 Maurizio Diana MD [address] [place] [address] [address] [place], [place] [id number] PCP - General Family Medicine 04/02/24 04/07/25 Marquis Simpson MD [address] [place] [address] [address] [place], [place] [id number] PCP - General Family Medicine 04/08/25 documented as of this encounter
--- OUTSIDE RECORDS SUMMARY | 2025-05-14 12:43 | XMS_ITS | Encounter Summary ---
Author Organization [facility] Medical [facility] Address [address] [facility] [address] [place] [address] Care Team Providers Care Model And Dye Person Name Role Phone Tomasz Mcqueen Primary Care Provider + Maurizio Diana MD Primary Care Provider [phone] Marquis Simpson MD Primary Care Provider [phone] Encounter Details Date Type Department Care Team (Late st Contact Info) Description 04/29/2015 Orders Only [facility] ProviderLoreta MD [address] [place] [address] Social History Tobacco Use Types Packs/Day Years Used Date Smoking Tobacco: Never Assessed Comments Unknown Sex and Gender Information Value Date Recorded Sex Assigned at Not on file Legal Sex Female 12:24 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 Historical Provider [facility] Final Result * CARDIOLOGY REPORT (04/29/2015) Anatomical Region Laterality Modality Other Narrative 04/29/2015 Ordered by an unspecified provider. us Historical Provider [facility] Final Result documented in this encounter Visit Diagnoses Not on filedocumented in this encounter Care Teams Model And Dye Person Relationship Specialty Start Date End Date Tomasz Mcqueen PA [address] [place] [address] PCP - General Physician Agent Based Modeler 03/21/22 04/01/24 Maurizio Diana MD [address] [place] [address] [address] [place] [address] PCP - General Family Medicine 04/02/24 04/07/25 Marquis Simpson MD [address] [place] [address] [address] [place] [address] PCP - General Family Medicine 04/08/25 documented as of this encounter
--- OUTSIDE RECORDS SUMMARY | 2025-05-14 12:43 | XMS_ITS | Clinical Summary ---
Author Organization [facility] Address [address] [place] [address] Care Team Providers Care Electrical Systems Designer Name Role Phone Marquis Simpson MD Primary Care Provider [phone] Allergies Active Allergy Reactions Criticality Noted Date Comments Adhesive Tape-Silicones Allopurinol Hives Medium 03/21/2022 Febuxostat Swollen tongue High 11/07/2022 Lisinopril Hives High Medications citalopram (CeleXA) 40 mg tablet take 1 tablet by oral route every day 0 0 7 Active diphenhydrAMINE (BENADRYL) 25 mg capsule take 2 capsule by oral route at bedtime 0 0 7 Active Additional Information Patient not taking.Reported on 04/08/2025 levothyroxine (SYNTHROID, LEVOTHROID) 50 mcg tablet Take 1 tablet (50 mcg total) by mouth daily Active traMADol (ULTRAM) 50 mg tablet Take 1 tablet (50 mg total) by mouth every 6 (six) hours as needed for pain Active atorvastatin (LIPITOR) 80 mg tablet Take 1 tablet (80 mg total) by mouth daily 0 Active cholecalciferol (VITAMIN D-3) 50,000 unit capsule Take 1 capsule (50,000 Units total) by mouth every 30 (thirty) days 1 Active colchicine (COLCRYS) 0.6 mg tablet as needed 2 Active cetirizine (ZyrTEC) 10 mg tablet Take 1 tablet (10 mg total) by mouth daily Active predniSONE (DELTASONE) 20 mg tablet Take 1 tablet (20 mg) by mouth daily Daily x 5 days Active famotidine (PEPCID) 20 mg tablet Take 1 tablet (20 mg total) by mouth 2 (two) times a day 3 Active isosorbide mononitrate ER (IMDUR) 30 mg 24 hr tablet Take 1 tablet (30 mg total) by mouth daily 90 tablet 1 3 Active mometasone (NASONEX) 50 mcg/actuation nasal spray Administer 1 spray into each nostril 2 (two) times a day 17 g 5 3 Active fluticasone propionate (FLONASE) 50 mcg/actuation nasal sprayIndications :Allergic Rhinitis Administer 1 spray into each nostril 2 (two) times a day 3 each 1 3 Active oxyBUTYnin XL (DITROPAN-XL) 5 mg 24 hr tablet Take 1 tablet (5 mg total) by mouth daily 4 Active clopidogreL (Plavix) 75 mg tablet Take 1 tablet (75 mg total) by mouth daily 90 tablet 6 4 Active amLODIPine (NORVASC) 10 mg tablet Take 1 tablet (10 mg total) by mouth nightly 90 tablet 6 4 Active Active Problems Problem Noted Date Diagnosed Date Gastroesophageal reflux disease 01/12/2023 Abnormal stress test 10/16/2022 Dizziness 07/03/2022 H/O: CVA (cerebrovascular accident) 05/29/2019 S/P coronary artery stent placement 05/29/2019 Chronic fatigue 11/18/2018 Coronary artery disease invo lving diomede coronary artery of diomede heart without angina pectoris 12/27/2016 HTN (hypertension), benign 12/27/2016 Persistent sinus bradycardia 11/23/2016 Overview (12/08/2016): Sinus bradycardia, persistent Iron deficiency anemia 11/23/2016 Overview (12/08/2016): Iron deficiency anemia, unspecified iron deficiency anemia type Cerebrovascular accident (CVA) 03/24/2016 Mixed hyperlipidemia 03/24/2016 Resolved Problems Problem Noted Date Diagnosed Date Resolved Date Dyslipidemia 02/19/2018 06/24/2021 Encounters Date Type Department Care Team Description 04/08/2025 10:00 AM CDT Office Visit [facility] Cardiology [address] [place] [address] Mark Anthony Mitchell MD Coronary artery disease involving diomede coronary artery of diomede heart without angina pectoris (Primary Dx); Status post angioplasty with stent; Hypertension associated with type 2 diabetes mellitus (HCC); Stage 3a chronic kidney disease (HCC); H/O: CVA (cerebrovascular accident) from Last 3 Months Surgical History Surgery Date Site/Laterality Comments TOTAL KNEE ARTHROPLASTY Left KNEE ARTHROSCOPY Right HERNIA REPAIR BREAST SURGERY Bilateral reduction LAMINECTOMY Bilateral L5 CHOLECYSTECTOMY Medical History Medical History Date Comments Asthma Asthma Hx Other Medical Blood clots in leg Hx Other Medical Blood clots in lung Hx Other Medical Back Pain Hypertension Hypertension Cerebrovascular accident (CVA) (HCC) Stroke Gout Gout Osteoporosis Osteoporosis Hx Other Medical Osteoarthritis Hx Other Medical High Cholestero l Hx Other Medical Breast reductio n Hx Other Medical Jonathan Laminectomy Hx Other Medical Knee Replacemen t Hx Other Medical Rt knee Arthros opic surg Hx Other Medical 4 Stints in LAD 2001 Sleep apnea Allergic rhinitis Hypothyroidism Type 2 diabetes mellitus Family History Medical History Relation Name Comments No Known Problems Father No Known Problems Mother Relation Name Status Comments Father Mother Social History Tobacco Use Types Packs/Day Years Used Date Smoking Tobacco: Former Cigarettes Q uit: 12/28/1979 Smokeless Tobacco: Never Tobacco Cessation:Counseling Given: Not Answered Alcohol Use Standard Drinks/Week Comments Yes 4 (1 standard drink = 0.6 oz pur e alcohol) AUDIT-C Answer Date Recorded Q1: How often do you have a drink containing alcohol? Never 10/09/2023 Q2: How many drinks containi ng alcohol do you have on a typical day when you are drinking? Patient does not drink Q3: How often do you have si x or more drinks on one occasion? Never 10/09/2023 Personal Safety Answer Date Recorded Have you ever been in or are you currently in a harmful physical or emotional relationship or is someone making you feel afraid or unsafe? Denies 11/16/2022 Comments Unknown Sex and Gender Information Value Date Recorded Sex Assigned at Not on file Legal Sex Female 12:24 AM SANDWICH HAND Gender Identity Not on file Sexual Orientation Not on file Obstetrics History Last Filed Vital Signs Vital Sign Reading Time Taken Comments Blood Pressure 110/70 04/08/2025 10:27 AM CDT Pulse 64 04/08/2025 10:27 AM CDT Temperature 36.6 C (97.9 F) 12/25/2023 11:20 AM CDT Respiratory Rate 18 12/25/2023 11:20 AM CDT Oxygen Saturation 97% 04/08/2025 10:27 AM CDT Inhaled Oxygen Concentration - - Weight 73.5 kg (162 lb) 04/08/2025 10:27 AM CDT Height 167.6 cm (5' 6) 04/08/2025 10:27 AM CDT Body Mass Index 26.15 04/08/2025 10:27 AM CDT Plan of Treatment Health Maintenance Due Date Last Done Comments Albumin Creatinine Ratio, Urine 1944 Depression Screening 1944 Hemoglobin A1C 1944 Osteoporosis Screening-Bone Density Scan 1944 Dilated Eye Exam 1944 Foot Exam 1944 Hepatitis B Screening 1962 Well Visit 65+ 2009 Zoster Vaccine (2 of 3) 03/10/2017 01/13/2017, 12/31 eGFR 11/14/2023 11/13/2022 Fall Risk Assessment 11/17/2023 11/16/2022 Influenza Vaccine (#1) 2025 , 06/21/2021, 04/28/2020, Additional history exists Lipid Panel 04/08/2026 04/08/2025, 03/16, 01/12/2023, Additional history exists DTaP/Tdap/Td Vaccine (4 - Td or Tdap) 08/26/2033 08/26/2023, 07/02/2017, 03/25/2008, Additional history exists Pneumococcal vaccine 65+ Completed 015, 02/13/2010, 04/26/2005 Medical Devices Implanted Type Area Dry End Operator Device Identifier Shelf Expiration Date Model / Serial / Lot Medtronic Card Vasc Surgery 2.25 X 15mm [place] Rx Coronary Stent [id number] - [id number] Implanted:Qty: 1 on 11/16/2022 by Mark Anthony Mitchell MD at [facility] Medtronic Card Vasc Surgery 09/02/2025 [id number] / / [id number] [email or web address] Device Vascular Closure Femoral Artery Bioabsorbable Dual Method Vascade 6-7fr Collagen [id number] - [id number] Implanted:Qty: 1 on 11/16/2022 by Mark Anthony Mitchell MD at [facility] [employer] 08/14/2024 [id number] / / [id number] Procedures Procedure Name Priority Date/Time Associated Diagnosis Comments POCT LIPID PANEL Routine 04/08/2025 10:2 1 AM CDT Coronary artery disease involving diomede coronary artery of diomede heart without angina pectoris COMPREHENSIVE METABOLIC PANEL Routine 11/13/2022 1:29 PM CDT from Last 3 Months or Most Recently Relevant to Health Maintenance Results * POCT lipid panel (04/08/2025 10:21 AM CDT) Cholesterol, POC 134 <200 MG/DL HDL, POC 62 >=40 mg/dL Triglycerides, POC 84 <=149 mg/dL LDL Cholesterol POC 55 <=129 mg/dL Chol/HDL Ratio, POC 0.9 NONE Non-HDL Cholesterol, POC 72 NONE mg/dL Cholesterol Total, POC 134 30 - 199 mg/dL Capillary blood 04/08/2025 1 0:21 AM CDT Mark Anthony Mitchell MD POINT OF CARE TEST ORDERABLES Fi nal Result * (ABNORMAL) Comprehensive metabolic panel (11/13/2022 1:29 PM CDT) Glucose 111(H) 70 - 99 mg/dL [facility] - 01 BUN 24 8 - 27 mg/dL [facility] - 01 Creatinine, Serum 1.21(H) 0.57 - 1.00 mg/dL [facility] - 01 eGFR 46(L) >59 mL/min/1.7 3 [facility] - 01 BUN/creat ratio 20 12 - 28 [facility] - 01 Sodium 142 134 - 144 mmol/L [facility] - 01 Potassium, sr 4.3 3.5 - 5.2 mmol/L [facility] - 01 Chloride 108(H) 96 - 106 mmol/L [facility] - 01 CO2 23 20 - 29 mmol/L [facility] - 01 Calcium 9.8 8.7 - 10.3 mg/dL [facility] - 01 Protein, sr 6.0 6.0 - 8.5 g/dL [facility] - 01 Albumin 4.3 3.7 - 4.7 g/dL [facility] - 01 Globulin, Total 1.7 1.5 - 4.5 g/dL [facility] - 01 A/G Ratio 2.5(H) 1.2 - 2.2 [facility] - 01 Bilirubin, Total 0.5 0.0 - 1.2 mg/dL [facility] - 01 Alk phos 99 44 - 121 IU/L [facility] - 01 AST 19 0 - 40 IU/L [facility] - 01 ALT 17 0 - 32 IU/L [facility] - 01 11/13/2022 1:29 PM CDT 11/13/2022 Narrative [facility] - 11/14/2022 7:10 AM CDT Performed at: - [facility] [address] [id number] Residence Counselor: Librado Curran PhD, Phone: [phone] us Mark Anthony Mitchell MD LAB BLOOD ORDERABLES Final Resul t [facility] - 01 from Last 3 Months or Most Recently Relevant to Health Maintenance Insurance MEDICARE MEDICARE BLUE CROSS MEDICARE SUPPLEMENT MEDICARE COMMERCIAL [facility] Care Teams Electrical Systems Designer Relationship Specialty Start Date End Date Marquis Simpson MD [facility] [address] [address] PCP - General Family Medicine 04/08/25
--- OUTSIDE RECORDS SUMMARY | 2025-05-14 12:43 | XMS_ITS | Encounter Summary ---
Author Organization [facility] Address [address] [facility] [address] [place] [id number] Care Team Providers Care Dynamics Ax Consultant Name Role Phone Tomasz Mcqueen Primary Care Provider + Maurizio Diana MD Primary Care Provider [phone] Marquis Simpson MD Primary Care Provider [phone] Encounter Details Date Type Department Care Team (Late st Contact Info) Description 02/24/2015 Orders Only [facility] ProviderLoreta MD [address] [place] [id number] Social History Tobacco Use Types Packs/Day Years Used Date Smoking Tobacco: Never Assessed Comments Unknown Sex and Gender Information Value Date Recorded Sex Assigned at Not on file Legal Sex Female 12:24 AM 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 Historical Provider [facility] Final Result documented in this encounter Visit Diagnoses Not on filedocumented in this encounter Care Teams Dynamics Ax Consultant Relationship Specialty Start Date End Date Tomasz Mcqueen PA [address] [place] [address] PCP - General Physician Telecommunications Specialist 03/21/22 04/01/24 Maurizio Diana MD [address] [place] [address] [address] [place], [place] [id number] PCP - General Family Medicine 04/02/24 04/07/25 Marquis Simpson MD [address] [place] [address] [address] [place], [place] [id number] PCP - General Family Medicine 04/08/25 documented as of this encounter
--- NOTE | 2025-05-14 13:09 | ED_ITS ---
HPI - Extremity Injury (Lower) General Chief Complaint: Extremity Injury, Lower <Jimmie Smith APRN - Last Filed: 05/14/25 17:21> Stated Complaint: ankle pain <Jimmie Smith APRN - Last Filed: 05/14/25 17:21> Time Seen by Provider: 05/14/25 11:25 <Jimmie Smith APRN - Last Filed: 05/14/25 17:21> Source: patient <Jimmie Smith APRN - Last Filed: 05/14/25 17:21> Mode of arrival: EMS <Jimmie Smith APRN - Last Filed: 05/14/25 17:21> Limitations: no limitations <Jimmie Smith APRN - Last Filed: 05/14/25 17:21> History of Present Illness HPI Narrative: Samuel is an 79-year-old female patient presenting to the ER today with complaints of right ankle foot pain. She reports that she has not been able to walk on her foot for the past 4 days. History of gout in the past. No known injury to her foot. She denies any fevers, chills, body aches. <Jimmie Smith APRN - Last Filed: 05/14/25 17:21> Related Data Home Medications: Home Medications ?Medication ?Instructions ?Recorded ?Confirmed ?Last Taken ?Type amlodipine 10 mg tablet 10 mg PO DAILY 02/26/2504/17 Unknown History cetirizine 10 mg capsule (Zyrtec) 10 mg PO DAILY PRN a llergy symptoms 02/26/25 05/14/25 Unknown History <Jimmie Smith APRN - Last Filed: 05/14/25 17:21> Allergies/Adverse Reactions: Allergies Allergy/AdvReac Type Severity Reaction Status Date / Time febuxostat Allergy Severe Swelling Verified 05/14/25 17:59 of Lip/Tongue/Throat adhesive Allergy Mild Unknown Verified 05/14/25 17:59 allopurinol Allergy Mild HIVES Verified 05/14/25 17:59 lisinopril Allergy Unknown Skin Verified 05/14/25 17:59 Reaction pollen extracts Allergy Unknown Sneezing Verified 05/14/25 17:59 tizanidine Allergy Unknown Pt does Verified 05/14/25 17:59 not remember reaction <Jimmie Smith APRN - Last Filed: 05/14/25 17:21> Review of Systems 2 Review of Systems: Pertinent positives per HPI. Patient denies any fever, chills, rash, headache, visual changes, dizziness, cough, runny nose, sore throat, shortness of breath, chest pain, palpitations, nausea, vomiting, diarrhea, constipation, abdominal pain, or any urinary issues. <Jimmie Smith APRN - Last Filed: 05/14/25 17:21> [facility] Past Medical History Medical History: Medical History Prediabetes Chronic kidney disease, stage 3 Coronary artery disease S/p 7 stents, on plavix. 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 Depression Osteoarthritis Gout Essential hypertension Mixed hyperlipidemia <Jimmie Smith APRN - Last Filed: 05/14/25 17:21> Surgical History Surgical History: Surgical History History of tonsillectomy History of inguinal hernia repair History of umbilical hernia repair History of tubal ligation History of 2 sections History of bilateral knee arthroplasty History of laminectomy History of cholecystectomy History of coronary artery stent placement History of cardiac catheterization <Jimmie Smith APRN - Last Filed: 05/14/25 17:21> Family History Family History: Family History Mother Diabetes mellitus Hypertension Father Family history of hypercholesterolemia Hypertension Family history of cardiovascular disease Sibling Family history of mental disorder Depression Family history of alcoholism <Jimmie Smith APRN - Last Filed: 05/14/25 17:21> Social History Social History: Social History Social History: Surrogate medical decision maker: Mary Anne Riggins, daughter. Code status: Full code. Caffeine-Coffee/tea/soda Smoking packs per day: 1 Smoking cigarettes per day: 20.0 Years smoked: 20 Smoking pack-years: 20.00 Smoking status: Never smoker Tobacco type: cigarettes Smoking end date: 07/16/79 Alcohol intake: never Drinks per week: 3 Substance use: current Substance use type: marijuana Other substance usage details: gummies-1/2 a gummie daily HS Lack of Transportation: No Lack of Food: Never True Current Housing: I Have Housing Concerned About Future Housing: No Difficulty Paying Gas/Electric Bills: No Difficulty Paying for Meds: No Currently Unemployed: No Education: Master's Degree or Higher Difficulty w/ Childcare or Family Care: No Living arrangements: alone Additional living arrangements comments: The patient [place]. 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 Spiritual care concerns: No <Jimmie Smith APRN - Last Filed: 05/14/25 17:21> Exam 2 Narrative: General: Well-developed, well nourished, in no apparent distress Head: Normocephalic, atraumatic. Cardio: Regular rate and rhythm, s1 and s2 normal, no murmur appreciated. Resp: Clear to auscultation bilaterally, no rhonchi, rales, wheezing or rubs. Musculoskeletal: No deformity, tender to palpation over the right dorsal foot and right lateral ankle, limited range of motion due to pain, muscle strength strong and equal, peripheral pulse strong, no edema, no cyanosis <Jimmie Smith APRN - Last Filed: 05/14/25 17:21> Course SUPERVISOR FILM PROCESSING/PA Physician Supervision I reviewed the chart, and agree with the management <Patrick Bland MD - Last Filed: 05/14/25 19:12> Vital Signs Vital signs: Vital Signs Temperature 36.7 C 05/14/25 11:10 Pulse Rate 60 05/14/25 11:10 Respiratory Rate 16 05/14/25 11:10 Blood Pressure 156/70 H 05/14/25 11:10 Pulse Oximetry 99 05/14/25 11:10 Oxygen Delivery Room Air 05/14/25 11:10 Temperature 36.7 C 05/14/25 11:10 Pulse Rate 60 05/14/25 11:10 Respiratory Rate 16 05/14/25 11:10 Blood Pressure 156/70 H 05/14/25 11:10 Pulse Oximetry 99 05/14/25 11:10 Oxygen Delivery Room Air 05/14/25 11:10 <Jimmie Smith APRN - Last Filed: 05/14/25 17:21> Vital Signs Temperature 36.7 C 05/14/25 11:10 Pulse Rate 60 05/14/25 11:10 Respiratory Rate 16 05/14/25 11:10 Blood Pressure 156/70 H 05/14/25 11:10 Pulse Oximetry 99 05/14/25 11:10 Oxygen Delivery Room Air 05/14/25 11:10 Temperature 36.7 C 05/14/25 11:10 Pulse Rate 60 05/14/25 11:10 Respiratory Rate 16 05/14/25 11:10 Blood Pressure 156/70 H 05/14/25 11:10 Pulse Oximetry 99 05/14/25 11:10 Oxygen Delivery Room Air 05/14/25 11:10 <Patrick Bland MD - Last Filed: 05/14/25 19:12> MDM - Extremity Injury (Lower) MDM Narrative Medical decision making narrative: At the time of visit patient is resting comfortably on the exam table. Patient appears to be nontoxic. Complaints of right ankle foot pain. She reports that she has not been able to walk on her foot for the past 4 days. History of gout in the past. No known injury to her foot. On exam patient has tenderness to palpation over the dorsal foot and over the lateral ankle. No edema/swelling to the foot. Pedal pulse palpable and strong. X-ray of the right ankle was initially ordered by staff members but will add CT of the foot and ankle as well as doing some baseline labs with a uric acid CRP, sed rate, CBC and CMP. Labs: CBC shows white blood cell count of 14 H&H is 13.5 and 40.9 platelet count is 222, ESR is, sodium is 136, potassium 3.8, chlorides 105, carbon dioxide is 29, BUN 17, creatinine 0.9 to GFR is 59, glucose is 112, uric acid is 4.6, the were function tests normal, elevated C reactive protein at 2.5 Diagnostics: X-ray of the right ankle is negative for any acute fracture or malalignment. CT of the foot and ankle 1. Polyarticular osteoarthritis, mild to moderate severity at the right foot and ankle. No acute osseous abnormality. 2. 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 Plan: Patient is having severe right ankle and foot pain. CT shows chondrocalcinosis at the ankle joint and multiple dystrophic calcifications of the ligaments and tendons of the right foot and ankle. Patient is unable to bear weight on the right foot/ankle. Discussed patient case with Dr. Vital. Recommend admission to hospital for steroids and pain management. Patient agrees to admission. Patient wishes to be a full code. Discussed patient case with Ricky FISH -hospitalist and she accepts patient for admission to Med/Surg. Contacted Dr. Loaiza and he will consults- stated he will possible due injections tomorrow but agrees with the treatment plan. <Jimmie Smith APRN - Last Filed: 05/14/25 17:21> Differential Diagnosis Differential diagnosis: Likely ankle sprain and strain, ankle fracture and other (Foot fracture, foot sprain) <Jimmie Smith APRN - Last Filed: 05/14/25 17:21> Lab Data Result diagrams: 05/14/25 13:35 05/14/25 13:35 <Jimmie Smith APRN - Last Filed: 05/14/25 17:21> Labs: Lab Results 05/14/25 Range/Units 13:35 WBC 14.0 H (4.5-10.0) K/mm3 RBC 4.30 (4.2-5.4) M/mm3 Hgb 13.5 (12.0-15.0) g/dL Hct 40.9 (37.0-47.0) % MCV 95.1 (80-100) fl MCH 31.4 (26-34) pg MCHC 33.0 (32-36) g/dl RDW 12.1 (11.5-14.5) % Plt Count 222 (150-375) k/mm3 MPV 9.8 (7.4-10.4) fl Immature Gran % (Auto) 0.4 (0-0.5) % Neut % (Auto) 71.6 (45.5-73.1) % Lymph % (Auto) 16.0 L (18.3-44.2) % [place] % (Auto) 11.5 H (2.6-8.5) % Eos % (Auto) 0.1 (0-4.4) % Baso % (Auto) 0.4 (0.2-1.2) % Lymph # (Auto) 2.25 (0.9-3.2) K/mm3 [place] # (Auto) 1.6 H (0.1-0.6) K/mm3 Eos # (Auto) 0.0 (0-0.3) K/mm3 Baso # (Auto) 0.1 (0.0-0.1) K/mm3 Abs Immat Gran (auto) 0.06 H (0.00-0.031) K/mm3 Absolute Neuts (auto) 10.0 H (1.3-6.7) K/mm3 Absolute Nucleated RBC 0.000 (0.0-0.012) K/mm3 Nucleated RBC % 0.0 (0.0-0.2) % ESR 20 (0-20) mm/hr Sodium 136 L (137-145) mmol/L Potassium 3.8 (3.4-5.0) mmol/L Chloride 105 (98-107) mmol/L Carbon Dioxide 29 (22-30) mmol/L Anion Gap 2 L (4-12) mmol/L BUN 17 D (7-17) mg/dL Creatinine 0.92 (0.7-1.0) mg/dL Estim Creat Clear Calc 40 ml/min Estimated GFR 59 (59 - ) Glucose 112 H (65-110) mg/dL Uric Acid 4.6 (2.5-7.5) mg/dL Calcium 9.6 (8.4-10.2) mg/dL Total Bilirubin 1.2 (0.2-1.3) mg/dL AST 28 (14-36) U/L ALT 20 (6-35) U/L Alkaline Phosphatase 99 (38-126) U/L C-Reactive Protein 2.5 H (<1.0) mg/dL Total Protein 6.3 (6.3-8.2) g/dL Albumin 3.5 (3.5-5.1) g/dL <Jimmie Smith, SENIOR UNDERWRITING ASSISTANT - Last Filed: 05/14/25 17:21> Lab Results 10/30/25 Range/Units 13:35 WBC 14.0 H (4.5-10.0) K/mm3 RBC 4.30 (4.2-5.4) M/mm3 Hgb 13.5 (12.0-15.0) g/dL Hct 40.9 (37.0-47.0) % MCV 95.1 (80-100) fl MCH 31.4 (26-34) pg MCHC 33.0 (32-36) g/dl RDW 12.1 (11.5-14.5) % Plt Count 222 (150-375) k/mm3 MPV 9.8 (7.4-10.4) fl Immature Gran % (Auto) 0.4 (0-0.5) % Neut % (Auto) 71.6 (45.5-73.1) % Lymph % (Auto) 16.0 L (18.3-44.2) % [place] % (Auto) 11.5 H (2.6-8.5) % Eos % (Auto) 0.1 (0-4.4) % Baso % (Auto) 0.4 (0.2-1.2) % Lymph # (Auto) 2.25 (0.9-3.2) K/mm3 [place] # (Auto) 1.6 H (0.1-0.6) K/mm3 Eos # (Auto) 0.0 (0-0.3) K/mm3 Baso # (Auto) 0.1 (0.0-0.1) K/mm3 Abs Immat Gran (auto) 0.06 H (0.00-0.031) K/mm3 Absolute Neuts (auto) 10.0 H (1.3-6.7) K/mm3 Absolute Nucleated RBC 0.000 (0.0-0.012) K/mm3 Nucleated RBC % 0.0 (0.0-0.2) % ESR 20 (0-20) mm/hr Sodium 136 L (137-145) mmol/L Potassium 3.8 (3.4-5.0) mmol/L Chloride 105 (98-107) mmol/L Carbon Dioxide 29 (22-30) mmol/L Anion Gap 2 L (4-12) mmol/L BUN 17 D (7-17) mg/dL Creatinine 0.92 (0.7-1.0) mg/dL Estim Creat Clear Calc 40 ml/min Estimated GFR 59 (59 - ) Glucose 112 H (65-110) mg/dL Uric Acid 4.6 (2.5-7.5) mg/dL Calcium 9.6 (8.4-10.2) mg/dL Total Bilirubin 1.2 (0.2-1.3) mg/dL AST 28 (14-36) U/L ALT 20 (6-35) U/L Alkaline Phosphatase 99 (38-126) U/L C-Reactive Protein 2.5 H (<1.0) mg/dL Total Protein 6.3 (6.3-8.2) g/dL Albumin 3.5 (3.5-5.1) g/dL <Patrick Bland MD - Last Filed: 05/14/25 19:12> Discharge Plan Discharge Clinical Impression: Foot pain, right, Unable to bear weight on right lower extremity Ankle pain, right Qualifiers: Chronicity: acute Qualified Code(s): M25.571 - Pain in right ankle and joints of right foot <Jimmie Smith APRN - Last Filed: 05/14/25 17:21> Patient Disposition: Still a Patient <Jimmie Smith APRN - Last Filed: 05/14/25 17:21> Condition: Stable <Jimmie Smith APRN - Last Filed: 05/14/25 17:21> Time of Disposition: 15:36 <Jimmie Smith APRN - Last Filed: 05/14/25 17:21> 15:36 <Patrick Bland MD - Last Filed: 05/14/25 19:12>
[2025-05-14 13:41] LABS: Hematocrit 40.9 % (37.0-47.0); Hemoglobin 13.5 g/dL (12.0-15.0); Immature Granulocyte Percent A 0.4 % (0-0.5); Lymphocytes Absolute Auto 2.25 K/mm3 (0.9-3.2); Mean Corpuscular HGB Conc 33.0 g/dl (32-36); Mean Corpuscular Hemoglobin 31.4 pg (26-34); Mean Corpuscular Volume 95.1 fl (80-100); Nucleated Red Blood Cells Absolute Auto 0.000 K/mm3 (0.0-0.012); Nucleated Red Blood Cells Perc 0.0 % (0.0-0.2); Platelet Count Result 222 k/mm3 (150-375); Red Blood Count 4.30 M/mm3 (4.2-5.4); White Blood Count 14.0 K/mm3 (4.5-10.0)
[2025-05-14 14:04] LABS: Alanine Aminotransferase 20 U/L (6-35); Albumin Level 3.5 g/dL (3.5-5.1); Alkaline Phosphatase 99 U/L (38-126); Anion Gap 2 mmol/L (4-12); Aspartate Amino Transferase 28 U/L (14-36); Bilirubin,Total 1.2 mg/dL (0.2-1.3); Blood Urea Nitrogen 17 mg/dL (7-17); CRP 2.5 mg/dL (<1.0); Calcium 9.6 mg/dL (8.4-10.2); Carbon Dioxide 29 mmol/L (22-30); Chloride 105 mmol/L (98-107); Estimated CRCL calculation 40 ml/min; Estimated Glomerular Filt Rate 59; Glucose 112 mg/dL (65-110); Potassium 3.8 mmol/L (3.4-5.0); Sodium 136 mmol/L (137-145); Total Protein 6.3 g/dL (6.3-8.2); Uric Acid 4.6 mg/dL (2.5-7.5)
--- NOTE | 2025-05-14 17:48 | ADMGEN ---
This patient, Marcelina Riggins, was admitted to 3 Med Surg Room 323-02. Patient/family oriented to hospital policies and general routines including ID bracelet, bed and alarms, visiting hours, pain management, procedures, bathroom and other care routines, personal items, smoking policy, room service/diet, and visiting hours. Information on how to activate the Rapid Response Team has been discussed. Patient/Family are encouraged to report perceived risks to care and to ask questions if they do not understand what they are told or what they should do. Report received from ABRAHAM Medina in the ER.
[2025-05-14 21:38] VITALS: BP 123/84; PULSE 66; RESP 18; TEMP 36.8; O2SAT 98
[2025-05-14] MEDS: PANTOPRAZOLE SOD SESQUIHYDRATE 20 MG TAB PO (21:54)
[2025-05-14] MEDS: CALCIUM CARBONATE (TUMS) 500 MG (200 MG ELEMENTAL) PO (21:54)
[2025-05-14 23:32] VITALS: O2SAT 98
--- NOTE | 2025-05-15 00:22 | P.HP_ITS ---
H&P: HPI History of Present Illness Date/Time: 05/14/25 22:30 Chief Complaint: This is a 79-year-old female patient who has a history of gout who came to the emergency room with complaints of right ankle pain. She stated that she has not been able to walk on her foot for the last 4 days. She does have a history of having PEs and DVTs. She stated that she has had no injury to that right ankle. She does notice some redness and swelling to the right ankle. She also stated that she had aspiration of fluid from the ankle in the past and was told she does not have gout. X-ray of the right ankle shows no acute fracture malalignment. Foot CT was read as the following. Polyarticular osteoarthritis, mild to moderate severity at the right foot and ankle. No acute osseous abnormality. 2. 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 Her white count was noted to be 14.0. CRP was 2.5. The patient was started on Solu-Medrol in the emergency room. Ortho has been consulted as well. The patient is being admitted to inpatient on the date of service of 05/14/2025. Review of Systems Constitutional: Constitutional: Reports as per HPI and Reports no additional constitutional complaints Eyes: Eyes: Reports as per HPI and Reports no additional eye complaints ENT: Reports system reviewed and no additional complaints, except as documented and Reports Normal hearing present Cardiovascular: Cardiovascular: Reports no additional cardiovascular complaints Respiratory: Respiratory: Reports as per HPI and Reports no additional respiratory complaints Gastrointestinal: Gastrointestinal: Reports as per HPI and Reports no additional gastrointestinal complaints Genitourinary: Genitourinary: Reports no additional female genitourinary complaints Musculoskeletal: Musculoskeletal: Reports no additional musculoskeletal complaints Integumentary/Breasts: Skin/Breast: Reports system reviewed and no additional complaints, except as docu Neurologic: Reports system reviewed and no additional complaints, except as documented and Reports Normal hearing present Psychiatric: Psychiatric: Reports no additional psychiatric complaints and Reports as per HPI Hematologic/Lymphatic: Hematologic/Lymphatic: Reports no additional hematologic/lymphatic complaints Allergic/Immunologic: Allergic/Immunologic: Reports no additional allergic/immunologic complaints [facility] Past Medical History Medical History (Updated 05/15/25 @ 09:45 by JORDAN Michael) TIA (transient ischemic attack) DVT (deep venous thrombosis) Pulmonary embolus Prediabetes Chronic kidney disease, stage 3 Coronary artery disease S/p 7 stents, on plavix. Product Analyst was Dr. 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 Depression Osteoarthritis Gout Essential hypertension Mixed hyperlipidemia Surgical History Surgical History (Updated 05/15/25 @ 00:51 by Mayra Samayoa APRN) Hx of breast reduction, elective History of tonsillectomy History of inguinal hernia repair History of umbilical hernia repair History of tubal ligation History of 2 sections History of bilateral knee arthroplasty History of laminectomy History of cholecystectomy History of coronary artery stent placement History of cardiac catheterization Family History Family History Mother Diabetes mellitus Hypertension Father Family history of hypercholesterolemia Hypertension Family history of cardiovascular disease Sibling Family history of mental disorder Depression Family history of alcoholism Social History Social History (Updated 05/15/25 @ 00:54 by Mayra Samayoa APRN) Social History: She is and retired. Surrogate medical decision maker: Mary Anne Riggins, daughter. Code status: Full code. Caffeine-Coffee/tea/soda Smoking packs per day: 1 Smoking cigarettes per day: 20.0 Years smoked: 20 Smoking pack-years: 20.00 Smoking status: Never smoker Tobacco type: cigarettes Smoking end date: 07/16/79 Alcohol intake: never Drinks per week: 3 Substance use: current Substance use type: marijuana Other substance usage details: gummies-1/2 a gummie daily HS Lack of Transportation: No Lack of Food: Never True Current Housing: I Have Housing Concerned About Future Housing: No Difficulty Paying Gas/Electric Bills: No Difficulty Paying for Meds: No Currently Unemployed: No Education: Master's Degree or Higher Difficulty w/ Childcare or Family Care: No Living arrangements: alone Additional living arrangements comments: The patient lives in her own home in [place]. 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 Spiritual care concerns: No Meds Home Medications and Allergies Home Medications ?Medication ?Instructions ?Recorded ?Confirmed ?Type blood-glucose meter, wireless #1 ea 02/22/22 05/14/25 Rx blood-glucose meter (OneTouch #1 ea 02/23/22 05/14/25 Rx Ultra2 Meter kit) blood sugar diagnostic (OneTouch #100 ea 04/04/2204/17 Rx Ultra Test strips) clopidogrel 75 mg tablet 75 mg PO DAILY #90 tabs 03/0705/14/25 Rx acetaminophen 500 mg tablet 1,000 mg (2 x 500 mg) PO T ID PRN 08/26/23 05/14/25 Rx janene 7 days #42 tabs citalopram 40 mg tablet See Rx Instructions .Route 1 07/20/23 05/14/25 Rx .COMPLEX #90 tabs atorvastatin 80 mg tablet 80 mg PO DAILY #90 tabs 12/1505/14/25 Rx isosorbide mononitrate 30 mg 30 mg PO DAILY #90 tabs 0 01/14/25 05/14/25 Rx tablet,extended release 24 hr oxybutynin chloride 5 mg 5 mg PO DAILY #90 tabs 01/2605/14/25 Rx tablet,extended release 24 hr amlodipine 10 mg tablet 10 mg PO DAILY 02/26/2504/17 History cetirizine 10 mg capsule (Zyrtec) 10 mg PO DAILY PRN a llergy symptoms 02/26/25 05/14/25 History tramadol 50 mg tablet 50 mg PO TID PRN pain #60 ta bs 02/26/25 05/14/25 Rx levothyroxine 50 mcg tablet 50 mcg PO DAILY #90 tabs 0 03/18/25 05/14/25 Rx Allergies Allergy/AdvReac Type Severity Reaction Status Date / Time febuxostat Allergy Severe Swelling Verified 05/14/25 17:59 of Lip/Tongue/Throat adhesive Allergy Mild Unknown Verified 05/14/25 17:59 allopurinol Allergy Mild HIVES Verified 05/14/25 17:59 lisinopril Allergy Unknown Skin Verified 05/14/25 17:59 Reaction pollen extracts Allergy Unknown Sneezing Verified 05/14/25 17:59 tizanidine Allergy Unknown Pt does Verified 05/14/25 17:59 not remember reaction Vital Signs Vital Signs - 24 hr 05/14/25 11:10 05/14/25 20:00 05/14/25 21:38 Temperature 98.1 F 98.2 F Pulse Rate 60 66 Respiratory Rate 16 18 Blood Pressure 156/70 H 123/84 Pulse Oximetry 99 98 Oxygen Delivery Room Air Room Air Exam Const: General: cooperative, healthy appearing, comfortable, no acute distress, well developed, awake, Physically active, average body habitus and well nourished Nutritional Appearance: average body habitus and well nourished Orientation/consciousness: oriented to person, oriented to place, oriented to time and patient oriented x3 Limitations: no limitations HENMT: Head: normal to inspection and No palpable skull fracture present Eyes: General: appearance normal, both eyes and all related structures Alignment and Position: alignment normal Periorbital: periorbital findings normal Eyelids: eyelids normal Neck: Neck: normal visual inspection and full ROM Chest: Chest palpation & inspection: normal inspection of the chest Resp: Effort & Inspection: normal respiratory effort Auscultation: clear to auscultation bilaterally Percussion: percussion normal Cardio: Palpation: normal PMI Rate: regular rate Rhythm: regular rhythm Heart sounds: S1 normal heart sound present and S2 normal heart sound present Peripheral pulses: Peripheral pulses 2+ throughout GI: Inspection: normal to inspection Back/Spine/Pelvis: Back: no CVA tenderness Skin: General skin exam: normal color Lesions: no lesions Rashes: no rashes Trauma: no lacerations or abrasions Other: Right dorsal foot and right lateral ankle limited range of motion. 1+ edema with erythema and tenderness. Neurovascularly intact with great capillary refill. Neuro: General: oriented to person, oriented to place, oriented to time and patient oriented x3 Other: She has limited movement to the right ankle. Pedal pulses 2+. Capillary refill less than 2 seconds. Extrem: General: normal to inspection Right upper extremity: normal to inspection and shoulder/upper arm Left upper extremity: normal to inspection and shoulder/upper arm Right lower extremity: edema Details: 1+ Left lower extremity: normal to inspection Psych: Appearance: grossly normal Mental Status: mental status grossly normal Speech and movement: Normal speech and movement present Affect: normal affect Attitude: cooperative Thought process: Normal thought process present Thought content: Yes Normal thought content present Insight: Good insight present (Psych) Judgement: Good judgement present (Psych) H&P: Results Labs Labs: Short CBC 05/14/ Range/Units 13:35 WBC 14.0 H (4.5-10.0) K/mm3 Hgb 13.5 (12.0-15.0) g/dL Hct 40.9 (37.0-47.0) % Plt Count 222 (150-375) k/mm3 BMP 05/14/25 13:35 Sodium 136 L Potassium 3.8 Chloride 105 Carbon Dioxide 29 BUN 17 D Creatinine 0.92 Glucose 112 H Calcium 9.6 Liver Function 05/14/25 Range/Units 13:35 Total Bilirubin 1.2 (0.2-1.3) mg/dL AST 28 (14-36) U/L ALT 20 (6-35) U/L Alkaline Phosphatase 99 (38-126) U/L Albumin 3.5 (3.5-5.1) g/dL Imaging Ankle x-ray: Radiologist's impression: Impressions Ankle X-Ray 05/14/25 11:35 Impression: No acute fracture or malalignment. Foot CT 05/14/25 13:42 IMPRESSION: 1. Polyarticular osteoarthritis, mild to moderate severity at the right foot and ankle. No acute osseous abnormality. 2. 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 Assessment and Plan Assessment and plan (1) Chondrocalcinosis: Code(s): M11.20 - Other chondrocalcinosis, unspecified site Status: Acute Assessment and Plan: -the patient was started on Solu-Medrol. -orthopedic physician has been consulted. --may consider joint injections and or aspiration of joint to rule out septic joint. -further recommendations per Ortho would greatly be appreciated. -may consider colchicine for the pseudogout. -PT and OT evaluation greatly be appreciated. -outdoor emergency care technician has been consulted for possible rehab. -check venous Doppler -continue with Ultram (2) Essential (primary) hypertension: Code(s): I10 - Essential (primary) hypertension Status: Acute Assessment and Plan: -continue with amlodipine if blood pressure allows. Current blood pressure 123/84 (3) Coronary artery disease: Code(s): I25.10 - Atherosclerotic heart disease of [place] coronary artery without angina pectoris Status: Acute Assessment and Plan: -the patient has a history of 7 coronary stents. -continue with Plavix and atorvastatin -continue with isosorbide (4) Hypothyroidism: Code(s): E03.9 - Hypothyroidism, unspecified Status: Acute Assessment and Plan: -continue levothyroxine (5) Depression: Code(s): F32.A - Depression, unspecified Status: Acute Assessment and Plan: -continue with citalopram Quality VTE Prophylaxis VTE prophylaxis: pharmacologic ordered
[2025-05-15] MEDS: LEVOTHYROXINE SODIUM 50 MCG TABLET PO (05:29)
[2025-05-15 05:48] VITALS: BP 142/66; PULSE 62; RESP 14; TEMP 36.5; O2SAT 100
[2025-05-15 06:18] LABS: Hematocrit 41.4 % (37.0-47.0); Hemoglobin 13.6 g/dL (12.0-15.0); Immature Granulocyte Percent A 0.6 % (0-0.5); Lymphocytes Absolute Auto 1.77 K/mm3 (0.9-3.2); Mean Corpuscular HGB Conc 32.9 g/dl (32-36); Mean Corpuscular Hemoglobin 30.9 pg (26-34); Mean Corpuscular Volume 94.1 fl (80-100); Nucleated Red Blood Cells Absolute Auto 0.000 K/mm3 (0.0-0.012); Nucleated Red Blood Cells Perc 0.0 % (0.0-0.2); Platelet Count Result 226 k/mm3 (150-375); Red Blood Count 4.40 M/mm3 (4.2-5.4); White Blood Count 12.5 K/mm3 (4.5-10.0)
[2025-05-15 06:41] LABS: Anion Gap 7 mmol/L (4-12); Blood Urea Nitrogen 25 mg/dL (7-17); Calcium 10.0 mg/dL (8.4-10.2); Carbon Dioxide 24 mmol/L (22-30); Chloride 105 mmol/L (98-107); Estimated CRCL calculation 40 ml/min; Estimated Glomerular Filt Rate 58; Glucose 179 mg/dL (65-110); Potassium 3.7 mmol/L (3.4-5.0); Sodium 136 mmol/L (137-145)
--- NOTE | 2025-05-15 08:20 | P.PNIM_ITS ---
Progress Note: A&P Assessment and Plan (1) Chondrocalcinosis: Code(s): M11.20 - Other chondrocalcinosis, unspecified site Status: Acute Assessment and Plan: Endorsing right ankle pain and has not been able to ambulate for 4 days. Hx of gout Foot CT: Chondrocalcinosis at the ankle joint and multiple dystrophic calcifications of ligaments and tendons at the right foot and ankle which suggests possibility of crystal deposition disease or other derangements of calcium homeostasis. - Uric acid WNL, CRP - Solu-Medrol 60 mg IV q6H started on admission, transitioned to 40 mg PO prednisone for 5 days - PT and OT evaluation greatly be appreciated. - patient is not chronically on allopurinol, will benefit from outpatient follow up with PCP to discuss starting this medication after acute flare resolves - ortho consulted Consider steroid injection. May start PT/OT as tolerated. WBAT. (2) Essential (primary) hypertension: Code(s): I10 - Essential (primary) hypertension Status: Acute Assessment and Plan: Chronic, continue home medications - amlodipine 10 mg daily, imdur 30 mg daily - blood pressures reviewed and remain stable, continue to monitor (3) Coronary artery disease: Code(s): I25.10 - Atherosclerotic heart disease of [place] coronary artery without angina pectoris Status: Acute Assessment and Plan: -the patient has a history of 7 coronary stents. -continue with Plavix and atorvastatin -continue with isosorbide (4) Hypothyroidism: Code(s): E03.9 - Hypothyroidism, unspecified Status: Acute Assessment and Plan: -continue levothyroxine (5) Depression: Code(s): F32.A - Depression, unspecified Status: Acute Assessment and Plan: -continue with citalopram Time Spent With Patient Time with patient: 25 - 35 minutes Subjective Date/time seen: 05/15/25 08:20 Interval history: 79-year-old female patient who has a history of gout, hld, htn, cad s/p 7 stents, and ckd presents to the hospital with complaints of right ankle pain. Patient is pleasant lying comfortably in bed. She states that this is not likely prior gout flare. She states that her right foot pain has significantly improved since receiving the steroids and notes increased mobility of the joint. She has no other complaints denying chest pain, palpitaitons, shortness of breath, nausea/vomiting and abdominal pain. Review of Systems Review of Systems: All systems reviewed & are unremarkable except as noted in HPI and below Exam Narrative: AF HR 66 RR12 Spo2 98 BP 125/70 General: female in no acute respiratory distress who is nontoxic appearing, lying semi recumbent in bed. HEENT: Normocephalic. Atraumatic. Extraocular movement intact. Sclera clear and anicteric. No facial asymmetry. Chest: Lungs are clear to auscultation bilaterally. No wheezes or crackles. CV: Heart was regular rate and rhythm. S1-S2. No murmurs, gallops, or rubs. Abd: Abdomen was soft. Nontender. Nondistended. Positive bowel sounds. Ext: No clubbing, cyanosis, or edema. DP pulses bilaterally. Tenderness to the medial ankle joint. Decreased range of motion with plantar/dorsal flexion compared to left foot. No wounds or abrasions. No redness or warmth. Neuro: Patient is alert and oriented x4. Speech is clear. Objective Data Vital Signs Vital Signs: Vital Signs - 24 hr 05/14/25 11:10 05/14/25 20:00 05/14/25 21:38 Temperature 98.1 F 98.2 F Pulse Rate 60 66 Respiratory Rate 16 18 Blood Pressure 156/70 H 123/84 Pulse Oximetry 99 98 Oxygen Delivery Room Air Room Air 05/14/25 23:32 05/15/25 05:48 Temperature 97.7 F Pulse Rate 62 Respiratory Rate 14 Blood Pressure 142/66 H Pulse Oximetry 98 100 Oxygen Delivery Room Air Intake/Output Intake/Output: Intake & Output 05/12/25 05/13/25 05/14/25 05/15/25 23:59 23:59 23:59 23:59 Intake Total 240 300 Balance 240 300 Meds/Results Medications: Active Medications Generic Name Dose Route Start Last Admin Trade Name Freq PRN Reason Stop Dose Admin Amlodipine Besylate 10 mg 05/15/25 09:00 Amlodipine Besylate 10 Mg Tablet PO DAILY [facility] Atorvastatin Calcium 80 mg 05/15/25 09:00 Atorvastatin 40 Mg Tablet PO DAILY [facility] Calcium Carbonate 200 mg 05/14/25 21:42 05/14/25 21:54 Calcium Carbonate (Tums) 500 Mg (200 Mg Elemental) PO 200 mg Q6H PRN Administration Indigestion Citalopram Hydrobromide 20 mg 05/15/25 09:00 Citalopram Hydrobromide 20 Mg Tablet BY MOUTH DAILY [facility] Clopidogrel Bisulfate 75 mg 05/15/25 09:00 Clopidogrel Bisulfate 75 Mg Tablet PO DAILY [facility] Enoxaparin Sodium 40 mg 05/15/25 09:00 Enoxaparin 40 Mg/0.4 Ml Syringe SUB-Q DAILY [facility] Isosorbide Mononitrate 30 mg 05/15/25 09:00 Isosorbide Mononitrate 30 Mg Tab.Er.24h PO DAILY [facility] Levothyroxine Sodium 50 mcg 05/15/25 06:30 05/15/25 05:29 Levothyroxine Sodium 50 Mcg Tablet PO 50 mcg DAILY@0630 [facility] Administration Loratadine 10 mg 05/14/25 21:47 Loratadine 10 Mg Tablet PO QAM PRN allergy symptoms Methylprednisolone Sodium Succinate 60 mg 05/14/25 18:00 05/15/25 05:28 Methylprednisolone Sod Succ 125 Mg Vial IV PUSH 60 mg Q6HR [facility] Administration Oxybutynin Chloride 5 mg 05/15/25 09:00 Oxybutynin Chloride Xl 5 Mg Tab.Er.24 PO DAILY [facility] Pantoprazole Sodium 20 mg 05/14/25 21:45 05/14/25 21:54 Pantoprazole Sod Sesquihydrate 20 Mg Tab PO 20 mg QAM LENA Administration Tramadol HCl 50 mg 05/14/25 21:39 Tramadol Hcl (*Crx) 50 Mg Tablet PO TID PRN Pain Radiology Results: ITS Impressions Ankle X-Ray 05/14/25 11:35 Impression: No acute fracture or malalignment. Foot CT 05/14/25 13:42 IMPRESSION: 1. Polyarticular osteoarthritis, mild to moderate severity at the right foot and ankle. No acute osseous abnormality. 2. 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 Labs Labs: Laboratory Results - last 24 hr 05/14/25 05/15/25 13:35 05:56 WBC 14.0 H 12.5 H RBC 4.30 4.40 Hgb 13.5 13.6 Hct 40.9 41.4 MCV 95.1 94.1 MCH 31.4 30.9 MCHC 33.0 32.9 RDW 12.1 11.9 Plt Count 222 226 MPV 9.8 10.2 Immature Gran % (Auto) 0.4 0.6 H Neut % (Auto) 71.6 83.1 H Lymph % (Auto) 16.0 L 14.2 L Hardy % (Auto) 11.5 H 2.0 L Eos % (Auto) 0.1 0.0 Baso % (Auto) 0.4 0.1 L Lymph # (Auto) 2.25 1.77 Hardy # (Auto) 1.6 H 0.3 Eos # (Auto) 0.0 0.0 Baso # (Auto) 0.1 0.0 Abs Immat Gran (auto) 0.06 H 0.08 H Absolute Neuts (auto) 10.0 H 10.4 H Absolute Nucleated RBC 0.000 0.000 Nucleated RBC % 0.0 0.0 ESR 20 Sodium 136 L 136 L Potassium 3.8 3.7 Chloride 105 105 Carbon Dioxide 29 24 Anion Gap 2 L 7 BUN 17 D 25 H Creatinine 0.92 0.93 Estim Creat Clear Calc 40 40 Estimated GFR 59 58 L Glucose 112 H 179 H Uric Acid 4.6 Calcium 9.6 10.0 Total Bilirubin 1.2 AST 28 ALT 20 Alkaline Phosphatase 99 C-Reactive Protein 2.5 H Total Protein 6.3 Albumin 3.5 Quality VTE Prophylaxis VTE prophylaxis: pharmacologic ordered
[2025-05-15] MEDS: ATORVASTATIN 40 MG TABLET 80 MG PO (08:59)
[2025-05-15] MEDS: CLOPIDOGREL BISULFATE 75 MG TABLET PO (08:59)
[2025-05-15] MEDS: CITALOPRAM HYDROBROMIDE 20 MG TABLET BY MOUTH (08:59)
[2025-05-15] MEDS: PANTOPRAZOLE SOD SESQUIHYDRATE 20 MG TAB PO (08:59)
[2025-05-15] MEDS: ENOXAPARIN 40 MG/0.4 ML SYRINGE SUB-Q (08:59)
[2025-05-15] MEDS: oxyBUTYnin CHLORIDE XL 5 MG TAB.ER.24 PO (08:59)
[2025-05-15] MEDS: ISOSORBIDE MONONITRATE 30 MG TAB.ER.24H PO (09:04)
--- NOTE | 2025-05-15 09:37 | PM.CNOR ---
Assessment and Plan Assessment and plan (1) Ankle pain, right: Qualifiers: Chronicity: acute Qualified Code(s): M25.571 - Pain in right ankle and joints of right foot <JORDAN Michael - Last Filed: 05/15/25 16:12> Code(s): M25.571 - Pain in right ankle and joints of right foot <JORDAN Michael - Last Filed: 05/15/25 16:12> Status: Acute <JORDAN Michael - Last Filed: 05/15/25 16:12> (2) Foot pain, right: Code(s): M79.671 - Pain in right foot <JORDAN Michael - Last Filed: 05/15/25 16:12> Status: Acute <JORDAN Michael - Last Filed: 05/15/25 16:12> (3) Chondrocalcinosis: Code(s): M11.20 - Other chondrocalcinosis, unspecified site <JORDAN Michael - Last Filed: 05/15/25 16:12> Status: Acute <JORDAN Michael - Last Filed: 05/15/25 16:12> (4) Arthritis of ankle, right: Code(s): M19.071 - Primary osteoarthritis, right ankle and foot <JORDAN Michael - Last Filed: 05/15/25 16:12> Status: Acute <JORDAN Michael - Last Filed: 05/15/25 16:12> Assessment and Plan: Right ankle and foot pain. No injury. Pain started in the last few weeks. In bed and unable to bear weight since Sunday (05/11/25). History of gout. Uric Acid normal. Reviewed foot CT and ankle xray with Dr. Loaiza. 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 Moderate to severe. Chondrocalcinosis suggestive of pseudogout. White count is mildly elevated but she is on IV steroids at this time. Not likely septic joint as she is able to move her ankle and it is not more warm, red, and swollen. Differential includes pseudogout and arthritis flair. She has point tenderness at the ankle joint space. She states she has had injections of steroids before and they have helped. She states she has had her ankle drained in the past and was told she did not have gout. Consider steroid injection. She is currently getting IV steroids. Will discuss with Dr. Loaiza. May start PT/OT as tolerated. WBAT. <JORDAN Michael - Last Filed: 05/15/25 16:12> Right ankle and foot pain. No injury. Pain started in the last few weeks. In bed and unable to bear weight since Sunday (05/11/25). History of gout. Uric Acid normal. Reviewed foot CT and ankle xray with Dr. Loaiza. 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 Moderate to severe. Chondrocalcinosis suggestive of pseudogout. White count is mildly elevated but she is on IV steroids at this time. Not likely septic joint as she is able to move her ankle and it is not more warm, red, and swollen. Differential includes pseudogout and arthritis flair. She has point tenderness at the ankle joint space. She states she has had injections of steroids before and they have helped. She states she has had her ankle drained in the past and was told she did not have gout. Consider steroid injection. She is currently getting IV steroids. Will discuss with Dr. Loaiza. May start PT/OT as tolerated. WBAT. Patient seen and examined. Discussed above care plan. Radiographic images reviewed personally. Agree with conservative care plan. I performed an intra-articular injection with 80 mg of Depo-Medrol. She tolerated this well. Follow up as needed only. <Miguel Loaiza MD - Last Filed: 05/15/25 16:21> History of Present Illness HPI Consult date: 05/15/25 <JORDAN Michael - Last Filed: 05/15/25 16:12> 05/15/25 <Miguel Loaiza MD - Last Filed: 05/15/25 16:21> Chief complaint: Acute Foot, Ankle Pain, Unable To Bear Weight On R <JORDAN Michael - Last Filed: 05/15/25 16:12> Narrative: 79 y/o female with a history of gout, kidney disease, CAD, HTN, HLD, history of bilateral lower leg DVT. Patient was admitted to the hospital for ankle and foot pain and inability to bear weight. No known injury. Patient has had pain for a few weeks but worse on Sunday when she was unable to bear weight due to pain and stayed in bed until coming to the ER on . She states the pain has not gotten worse but it has not gotten better either. Pain with bearing weight and if she bumps it. No pain at rest. Has a history of arthritis. She does notice some redness and swelling to the right ankle. She also stated that she had aspiration of fluid from the ankle in the past and was told she does not have gout. <JORDAN Michael - Last Filed: 05/15/25 16:12> Review of Systems Review of Systems: All systems reviewed & are unremarkable except as noted in HPI and below <JORDAN Michael - Last Filed: 05/15/25 16:12> [facility] Past Medical History Medical History: Medical History (Updated 05/15/25 @ 09:45 by JORDAN Michael) TIA (transient ischemic attack) DVT (deep venous thrombosis) Pulmonary embolus Prediabetes Chronic kidney disease, stage 3 Coronary artery disease S/p 7 stents, on plavix. Electronic Intelligence Officer was Dr. 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 Depression Osteoarthritis Gout Essential hypertension Mixed hyperlipidemia <JORDAN Michael - Last Filed: 05/15/25 16:12> Surgical History Surgical History: Surgical History (Updated 05/15/25 @ 00:51 by Mayra Samayoa APRN) Hx of breast reduction, elective History of tonsillectomy History of inguinal hernia repair History of umbilical hernia repair History of tubal ligation History of 2 sections History of bilateral knee arthroplasty History of laminectomy History of cholecystectomy History of coronary artery stent placement History of cardiac catheterization <JORDAN Michael - Last Filed: 05/15/25 16:12> Family History Family History: Family History Mother Diabetes mellitus Hypertension Father Family history of hypercholesterolemia Hypertension Family history of cardiovascular disease Sibling Family history of mental disorder Depression Family history of alcoholism <JORDAN Michael - Last Filed: 05/15/25 16:12> Social History Social History: Social History (Updated 05/15/25 @ 00:54 by Mayra Samayoa APRN) Social History: She is and retired. Surrogate medical decision maker: Mary Anne Riggins, daughter. Code status: Full code. Caffeine-Coffee/tea/soda Smoking packs per day: 1 Smoking cigarettes per day: 20.0 Years smoked: 20 Smoking pack-years: 20.00 Smoking status: Never smoker Tobacco type: cigarettes Smoking end date: 07/16/79 Alcohol intake: never Drinks per week: 3 Substance use: current Substance use type: marijuana Other substance usage details: gummies-1/2 a gummie daily HS Lack of Transportation: No Lack of Food: Never True Current Housing: I Have Housing Concerned About Future Housing: No Difficulty Paying Gas/Electric Bills: No Difficulty Paying for Meds: No Currently Unemployed: No Education: Master's Degree or Higher Difficulty w/ Childcare or Family Care: No Living arrangements: alone Additional living arrangements comments: The patient lives in her own home in [place] [facility]. 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 Spiritual care concerns: No <JORDAN Michael - Last Filed: 05/15/25 16:12> Meds Home Medications and Allergies Home medications: Home Medications ?Medication ?Instructions ?Recorded ?Confirmed ?Type blood-glucose meter, wireless #1 ea 02/22/22 05/14/25 Rx blood-glucose meter (OneTouch #1 ea 02/23/22 05/14/25 Rx Ultra2 Meter kit) blood sugar diagnostic (OneTouch #100 ea 04/04/22 05/14/25 Rx Ultra Test strips) clopidogrel 75 mg tablet 75 mg PO DAILY #90 tabs 11/20/22 05/14/25 Rx acetaminophen 500 mg tablet 1,000 mg (2 x 500 mg) PO TID PRN 08/26/23 05/14/25 Rx janene 7 days #42 tabs citalopram 40 mg tablet See Rx Instructions .Route 05/20/24 05/14/25 Rx .COMPLEX #90 tabs atorvastatin 80 mg tablet 80 mg PO DAILY #90 tabs 01/06/25 05/14/25 Rx isosorbide mononitrate 30 mg 30 mg PO DAILY #90 tabs 01/14/25 05/14/25 Rx tablet,extended release 24 hr oxybutynin chloride 5 mg 5 mg PO DAILY #90 tabs 01/26/25 05/14/25 Rx tablet,extended release 24 hr amlodipine 10 mg tablet 10 mg PO DAILY 02/26/25 05/14/25 History cetirizine 10 mg capsule (Zyrtec) 10 mg PO DAILY PRN allergy symptoms 02/26/25 05/14/25 History tramadol 50 mg tablet 50 mg PO TID PRN pain #60 tabs 02/26/25 05/14/25 Rx levothyroxine 50 mcg tablet 50 mcg PO DAILY #90 tabs 03/18/25 05/14/25 Rx <JORDAN Michael - Last Filed: 05/15/25 16:12> Allergies/Adverse reactions: Allergies Allergy/AdvReac Type Severity Reaction Status Date / Time febuxostat Allergy Severe Swelling Verified 05/14/25 17:59 of Lip/Tongue/Throat adhesive Allergy Mild Unknown Verified 05/14/25 17:59 allopurinol Allergy Mild HIVES Verified 05/14/25 17:59 lisinopril Allergy Unknown Skin Verified 05/14/25 17:59 Reaction pollen extracts Allergy Unknown Sneezing Verified 05/14/25 17:59 tizanidine Allergy Unknown Pt does Verified 05/14/25 17:59 not remember reaction <JORDAN Michael - Last Filed: 05/15/25 16:12> Vital Signs Vital Signs - 24 hr 05/14/25 11:10 05/14/25 20:00 05/14/25 21:38 Temperature 98.1 F 98.2 F Pulse Rate 60 66 Respiratory Rate 16 18 Blood Pressure 156/70 H 123/84 Pulse Oximetry 99 98 Oxygen Delivery Room Air Room Air 05/14/25 23:32 05/15/25 05:48 Temperature 97.7 F Pulse Rate 62 Respiratory Rate 14 Blood Pressure 142/66 H Pulse Oximetry 98 100 Oxygen Delivery Room Air <JORDAN Michael - Last Filed: 05/15/25 16:12> Exam Narrative: Examination 79 y/o elderly patient. Slightly overweight. Appears healthy. No distress. Alert and oriented. No ecchymosis. Mild swelling. No warmth. Minimal erythema. No tenderness at the medial or lateral malleolus. Deltoid ligament non tender. Tenderness at the ankle joint. Slight stiff decreased range of motion of the ankle. No pain in the midfoot with palpation. Light touch sensation intact. Brief capillary refill. No skin lacerations or other lesions. No edema. No calf tenderness. <JORDAN Michael - Last Filed: 05/15/25 16:12> Results Labs Result Diagrams: 05/15/25 05:56 05/15/25 05:56 <JORDAN Michael - Last Filed: 05/15/25 16:12> Labs: Abnormal lab results 05/14/25 05/15/25 Range/Units 13:35 05:56 WBC 14.0 H 12.5 H (4.5-10.0) K/mm3 Immature Gran % (Auto) 0.6 H (0-0.5) % Neut % (Auto) 83.1 H (45.5-73.1) % Lymph % (Auto) 16.0 L 14.2 L (18.3-44.2) % [place] % (Auto) 11.5 H 2.0 L (2.6-8.5) % Baso % (Auto) 0.1 L (0.2-1.2) % [place] # (Auto) 1.6 H (0.1-0.6) K/mm3 Abs Immat Gran (auto) 0.06 H 0.08 H (0.00-0.031) K/mm3 Absolute Neuts (auto) 10.0 H 10.4 H (1.3-6.7) K/mm3 Sodium 136 L 136 L (137-145) mmol/L Anion Gap 2 L (4-12) mmol/L BUN 25 H (7-17) mg/dL Estimated GFR 58 L (59 - ) Glucose 112 H 179 H (65-110) mg/dL C-Reactive Protein 2.5 H (<1.0) mg/dL H & H 05/14/25 05/15/25 Range/Units 13:35 05:56 Hgb 13.5 13.6 (12.0-15.0) g/dL Hct 40.9 41.4 (37.0-47.0) % All other labs normal. <JORDAN Michael - Last Filed: 05/15/25 16:12>
[2025-05-15 11:04] LABS: CRP 2.5 mg/dL (<1.0); Uric Acid 5.6 mg/dL (2.5-7.5)
[2025-05-15 14:00] VITALS: BP 125/70; PULSE 66; RESP 12; TEMP 37.2; O2SAT 98
[2025-05-15] MEDS: methylPREDNISolone ACETATE 80 MG/ML VIAL 40 MG I-ARTICULR (16:13)
--- NOTE | 2025-05-15 16:21 | W.PM.PROC2 ---
Procedure Note - Detailed Date of Procedure 05/15/25 Pre-op Diagnosis Acute crystalline arthropathy right ankle Post-op Diagnosis Same Procedure Performed Intra-articular injection right ankle joint with 80 mg Depo-Medrol. Surgeon Miguel Loaiza MD Anesthesia None Description of Procedure The ankle was prepped with alcohol followed by chlorhexidine. An anterolateral approach for the injection was used. Intra-articular injection with 80 mg of Depo-Medrol performed. Adhesive bandage. Tolerated well. Pathology None sent Complications No immediate complications [facility] Billing Surgery - Charge Forward: Surgery Billing (Medium joint intra-articular injection with decision for surgery same day modifier)
[2025-05-15 22:00] VITALS: BP 140/53; PULSE 69; RESP 16; TEMP 36.8; O2SAT 100
[2025-05-16 05:21] VITALS: BP 132/58; PULSE 58; RESP 14; TEMP 36.7; O2SAT 99
[2025-05-16] MEDS: LEVOTHYROXINE SODIUM 50 MCG TABLET PO (05:58)
[2025-05-16 07:28] LABS: Hematocrit 38.7 % (37.0-47.0); Hemoglobin 12.9 g/dL (12.0-15.0); Mean Corpuscular HGB Conc 33.3 g/dl (32-36); Mean Corpuscular Hemoglobin 31.2 pg (26-34); Mean Corpuscular Volume 93.7 fl (80-100); Platelet Count Result 272 k/mm3 (150-375); Red Blood Count 4.13 M/mm3 (4.2-5.4); White Blood Count 24.7 K/mm3 (4.5-10.0)
[2025-05-16 07:36] LABS: Alanine Aminotransferase 20 U/L (6-35); Albumin Level 3.3 g/dL (3.5-5.1); Alkaline Phosphatase 85 U/L (38-126); Anion Gap 6 mmol/L (4-12); Aspartate Amino Transferase 22 U/L (14-36); Bilirubin,Total 0.4 mg/dL (0.2-1.3); Blood Urea Nitrogen 36 mg/dL (7-17); Calcium 9.6 mg/dL (8.4-10.2); Carbon Dioxide 25 mmol/L (22-30); Chloride 105 mmol/L (98-107); Estimated CRCL calculation 37 ml/min; Estimated Glomerular Filt Rate 54; Glucose 145 mg/dL (65-110); Potassium 3.7 mmol/L (3.4-5.0); Sodium 136 mmol/L (137-145); Total Protein 5.9 g/dL (6.3-8.2)
--- NOTE | 2025-05-16 08:44 | P.PNIM_ITS ---
Progress Note: A&P Assessment and Plan (1) Chondrocalcinosis: Code(s): M11.20 - Other chondrocalcinosis, unspecified site Status: Acute Assessment and Plan: Endorsing right ankle pain and has not been able to ambulate for 4 days. Hx of gout Foot CT: Chondrocalcinosis at the ankle joint and multiple dystrophic calcifications of ligaments and tendons at the right foot and ankle which suggests possibility of crystal deposition disease or other derangements of calcium homeostasis. - Uric acid WNL, CRP - Solu-Medrol 60 mg IV q6H started on admission, transitioned to 40 mg PO prednisone for 5 days - PT and OT evaluation greatly be appreciated. - patient is not chronically on allopurinol, will benefit from outpatient follow up with PCP to discuss starting this medication after acute flare resolves - ortho consulted S/p 80 mg depo-medrol injection to the right ankle joint on 05/[address] Loaiza May start PT/OT as tolerated. WBAT. Significantly elevated WBC likely related to steroids however will have patient remain inpatient to reassess WBC in the am. She has no complaints of shortness of breath/cough, no UTI like symptoms, and no nausea/vomiting or abdominal pain. (2) Essential (primary) hypertension: Code(s): I10 - Essential (primary) hypertension Status: Acute Assessment and Plan: Chronic, continue home medications - amlodipine 10 mg daily, imdur 30 mg daily - blood pressures reviewed and remain stable, continue to monitor (3) Coronary artery disease: Code(s): I25.10 - Atherosclerotic heart disease of [place] coronary artery without angina pectoris Status: Acute Assessment and Plan: -the patient has a history of 7 coronary stents. -continue with Plavix and atorvastatin -continue with isosorbide (4) Hypothyroidism: Code(s): E03.9 - Hypothyroidism, unspecified Status: Acute Assessment and Plan: -continue levothyroxine (5) Depression: Code(s): F32.A - Depression, unspecified Status: Acute Assessment and Plan: -continue with citalopram Time Spent With Patient Time with patient: 25 - 35 minutes Subjective Date/time seen: 05/16/25 08:44 Interval history: 79-year-old female patient who has a history of gout, hld, htn, cad s/p 7 stents, and ckd presents to the hospital with complaints of right ankle pain. Patient is pleasant lying comfortably in bed. She states she is feeling much better today after receiving the cortisone injection. She notes that she has been able to ambulate throughout the room and worked well with physical therapy. She has no other chest pain, shortness of breath, palpitations, nausea/vomiting, abdominal pain, dizziness/lightheadedness and any UTI like symptoms. Review of Systems Review of Systems: All systems reviewed & are unremarkable except as noted in HPI and below Exam Narrative: AF HR 58 RR 14 Spo2 99 BP 134/60 General: female in no acute respiratory distress who is nontoxic appearing, lying semi recumbent in bed. HEENT: Normocephalic. Atraumatic. Extraocular movement intact. Sclera clear and anicteric. No facial asymmetry. Chest: Lungs are clear to auscultation bilaterally. No wheezes or crackles. CV: Heart was regular rate and rhythm. Abd: Abdomen was soft. Nontender. Nondistended. Positive bowel sounds. Ext: No clubbing, cyanosis, or edema. DP pulses bilaterally. Nontender to palpation of the ankle. Decreased range of motion with dorsal flexion compared to left foot, improved compared to yesterday. No wounds or abrasions. No redness or warmth. Neuro: Patient is alert and oriented x4. Speech is clear. Objective Data Vital Signs Vital Signs: Vital Signs - 24 hr 05/15/25 11:44 05/15/25 13:19 05/15/25 14:00 Temperature 98.9 F Pulse Rate 66 Respiratory Rate 12 Blood Pressure 125/70 Pulse Oximetry 98 Oxygen Delivery Room Air Room Air 05/15/25 22:00 05/16/25 05:21 Temperature 98.2 F 98.0 F Pulse Rate 69 58 L Respiratory Rate 16 14 Blood Pressure 140/53 L 132/58 L Pulse Oximetry 100 99 Oxygen Delivery Intake/Output Intake/Output: Intake & Output 05/13/25 05/14/25 05/15/25 05/16/25 23:59 23:59 23:59 23:59 Intake Total 240 1114 240 Balance 240 1114 240 Meds/Results Medications: Active Medications Generic Name Dose Route Start Last Admin Trade Name Freq PRN Reason Stop Dose Admin Amlodipine Besylate 10 mg 05/15/25 09:00 05/15/25 08:59 Amlodipine Besylate 10 Mg Tablet PO 10 mg DAILY LENA Administration Atorvastatin Calcium 80 mg 05/15/25 09:00 05/15/25 08:59 Atorvastatin 40 Mg Tablet PO 80 mg DAILY LENA Administration Calcium Carbonate 200 mg 05/14/25 21:42 05/14/25 21:54 Calcium Carbonate (Tums) 500 Mg (200 Mg Elemental) PO 200 mg Q6H PRN Administration Indigestion Citalopram Hydrobromide 20 mg 05/15/25 09:00 05/15/25 08:59 Citalopram Hydrobromide 20 Mg Tablet BY MOUTH 20 mg DAILY LENA Administration Clopidogrel Bisulfate 75 mg 05/15/25 09:00 05/15/25 08:59 Clopidogrel Bisulfate 75 Mg Tablet PO 75 mg DAILY LENA Administration Enoxaparin Sodium 40 mg 05/15/25 09:00 05/15/25 08:59 Enoxaparin 40 Mg/0.4 Ml Syringe SUB-Q 40 mg DAILY LENA Administration Isosorbide Mononitrate 30 mg 05/15/25 09:00 05/15/25 09:04 Isosorbide Mononitrate 30 Mg Tab.Er.24h PO 30 mg DAILY LENA Administration Levothyroxine Sodium 50 mcg 05/15/25 06:30 05/16/25 05:58 Levothyroxine Sodium 50 Mcg Tablet PO 50 mcg DAILY@0630 [facility] Administration Loratadine 10 mg 05/14/25 21:47 Loratadine 10 Mg Tablet PO QAM PRN allergy symptoms Oxybutynin Chloride 5 mg 05/15/25 09:00 05/15/25 08:59 Oxybutynin Chloride Xl 5 Mg Tab.Er.24 PO 5 mg DAILY LENA Administration Pantoprazole Sodium 20 mg 05/14/25 21:45 05/15/25 08:59 Pantoprazole Sod Sesquihydrate 20 Mg Tab PO 20 mg QAM LENA Administration Polyethylene Glycol 17 gm 05/15/25 16:19 Polyethylene Glycol 3350 17 Gm Powd.Pack PO QAM PRN Constipation Prednisone 40 mg 05/16/25 08:00 Prednisone 20 Mg Tablet PO 05/21/25 07:59 DAILY@0800 LENA Senna/Docusate Sodium 1 tab 05/15/25 21:00 05/15/25 21:42 Senna/Docusate Sodium Tablet PO Not Given HS [facility] Tramadol HCl 50 mg 05/14/25 21:39 Tramadol Hcl (*Crx) 50 Mg Tablet PO TID PRN Pain Radiology Results: ITS Impressions Ankle X-Ray 05/14/25 11:35 Impression: No acute fracture or malalignment. Foot CT 05/14/25 13:42 IMPRESSION: 1. Polyarticular osteoarthritis, mild to moderate severity at the right foot and ankle. No acute osseous abnormality. 2. 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 Venous Doppler Study 05/15/25 09:51 IMPRESSION: No acute findings. Labs Labs: Laboratory Results - last 24 hr 05/15/25 05/16/25 08:50 06:34 WBC 24.7 H RBC 4.13 L Hgb 12.9 Hct 38.7 MCV 93.7 MCH 31.2 MCHC 33.3 RDW 11.9 Plt Count 272 MPV 10.4 ESR 28 H Sodium 136 L Potassium 3.7 Chloride 105 Carbon Dioxide 25 Anion Gap 6 BUN 36 H D Creatinine 0.99 Estim Creat Clear Calc 37 Estimated GFR 54 L Glucose 145 H Uric Acid 5.6 Calcium 9.6 Total Bilirubin 0.4 AST 22 ALT 20 Alkaline Phosphatase 85 C-Reactive Protein 2.5 H Total Protein 5.9 L Albumin 3.3 L Quality VTE Prophylaxis VTE prophylaxis: pharmacologic ordered
[2025-05-16] MEDS: ISOSORBIDE MONONITRATE 30 MG TAB.ER.24H PO (09:23)
[2025-05-16] MEDS: oxyBUTYnin CHLORIDE XL 5 MG TAB.ER.24 PO (09:23)
[2025-05-16] MEDS: CLOPIDOGREL BISULFATE 75 MG TABLET PO (09:23)
[2025-05-16] MEDS: CITALOPRAM HYDROBROMIDE 20 MG TABLET BY MOUTH (09:23)
[2025-05-16] MEDS: ATORVASTATIN 40 MG TABLET 80 MG PO (09:23)
[2025-05-16] MEDS: PANTOPRAZOLE SOD SESQUIHYDRATE 20 MG TAB PO (09:24)
[2025-05-16] MEDS: ENOXAPARIN 40 MG/0.4 ML SYRINGE SUB-Q (09:26)
[2025-05-16 10:48] VITALS: BP 134/60; PULSE 55
[2025-05-16] MEDS: traMADol HCL (*CRX) 50 MG TABLET PO ×2 (11:05→21:10)
[2025-05-16 14:00] VITALS: BP 122/56; PULSE 60; RESP 18; TEMP 36.4; O2SAT 98
[2025-05-16 19:51] VITALS: BP 119/61; PULSE 58; RESP 17; TEMP 36.1; O2SAT 98
[2025-05-16 20:00] VITALS: PULSE 58; RESP 17; O2SAT 98
--- NOTE | 2025-05-17 01:01 | PC.NURSE ---
Daylight Savings Time For Daylight Savings Time Ending in the Fall - Clocks are moved back. For Daylight Savings Time Beginning in the Spring - Clocks are moved ahead. For [facility], the time of change occurs at 0200 hrs. Time is taken from the fountain server. This entry on the patient's chart recognizes the change in time reflected during documentation. Example: 2 entries for vital signs may be charted for 0200 hrs.
[2025-05-17 05:06] VITALS: BP 133/61; PULSE 50; RESP 15; TEMP 36.1; O2SAT 99
[2025-05-17] MEDS: LEVOTHYROXINE SODIUM 50 MCG TABLET PO (05:46)
[2025-05-17 06:22] LABS: Hematocrit 36.0 % (37.0-47.0); Hemoglobin 11.9 g/dL (12.0-15.0); Mean Corpuscular HGB Conc 33.1 g/dl (32-36); Mean Corpuscular Hemoglobin 31.2 pg (26-34); Mean Corpuscular Volume 94.5 fl (80-100); Platelet Count Result 254 k/mm3 (150-375); Red Blood Count 3.81 M/mm3 (4.2-5.4); White Blood Count 15.7 K/mm3 (4.5-10.0)
[2025-05-17 06:37] LABS: Alanine Aminotransferase 27 U/L (6-35); Albumin Level 2.9 g/dL (3.5-5.1); Alkaline Phosphatase 78 U/L (38-126); Anion Gap 3 mmol/L (4-12); Aspartate Amino Transferase 28 U/L (14-36); Bilirubin,Total 0.2 mg/dL (0.2-1.3); Blood Urea Nitrogen 31 mg/dL (7-17); Calcium 9.3 mg/dL (8.4-10.2); Carbon Dioxide 28 mmol/L (22-30); Chloride 106 mmol/L (98-107); Estimated CRCL calculation 38 ml/min; Estimated Glomerular Filt Rate 55; Glucose 107 mg/dL (65-110); Potassium 3.9 mmol/L (3.4-5.0); Sodium 137 mmol/L (137-145); Total Protein 5.4 g/dL (6.3-8.2)
[2025-05-17] MEDS: PANTOPRAZOLE SOD SESQUIHYDRATE 20 MG TAB PO (08:16)
[2025-05-17] MEDS: ENOXAPARIN 40 MG/0.4 ML SYRINGE SUB-Q (08:16)
[2025-05-17] MEDS: ATORVASTATIN 40 MG TABLET 80 MG PO (08:16)
[2025-05-17] MEDS: CLOPIDOGREL BISULFATE 75 MG TABLET PO (08:17)
[2025-05-17] MEDS: ISOSORBIDE MONONITRATE 30 MG TAB.ER.24H PO (08:17)
[2025-05-17] MEDS: oxyBUTYnin CHLORIDE XL 5 MG TAB.ER.24 PO (08:17)
[2025-05-17] MEDS: CITALOPRAM HYDROBROMIDE 20 MG TABLET BY MOUTH (08:17)
[2025-05-17 08:30] VITALS: PULSE 50; RESP 15; O2SAT 99
--- NOTE | 2025-05-17 10:04 | P.DS_ITS ---
DS: Admitting Diagnosis Discharge Date 05/17/2025 Admitting Diagnosis chondrocalcinosis htn cad hypothyroidism depression DS: Discharge Diagnosis Discharge Diagnosis (1) Chondrocalcinosis: Code(s): M11.20 - Other chondrocalcinosis, unspecified site Status: Acute (2) Essential (primary) hypertension: Code(s): I10 - Essential (primary) hypertension Status: Acute (3) Coronary artery disease: Code(s): I25.10 - Atherosclerotic heart disease of [place] coronary artery without angina pectoris Status: Acute (4) Hypothyroidism: Code(s): E03.9 - Hypothyroidism, unspecified Status: Acute (5) Depression: Code(s): F32.A - Depression, unspecified Status: Acute DS: Summary Hospital Course Reason for hospitalization: chondrocalcinosis htn cad hypothyroidism depression Hospital Course: 79-year-old female patient who has a history of gout, hld, htn, cad s/p 7 stents, and ckd presents to the hospital with complaints of right ankle pain. Uric acid WNL and only slightly elevated CRP. Foot CT showed chondrocalcinosis at the ankle joint and multiple dystrophic calcifications of ligaments and tendons at the right foot and ankle which suggests possibility of crystal deposition disease or other derangements of calcium homeostasis. Patient started on IV steroids and noted significant improvement. Ortho consulted and patient underwent a 80 mg depo-medrol injection to the right ankle joint on 05/[address] Loaiza. Patient transitioned to oral steroid to complete the course at time of discharge. During admission patient worked with PT/OTwho recommended home health. Home health set up per care coordination. At time of discharge patient states she has no pain and is able to ambulate back to her baseline. Patient has no other complaints at time of discharge denying chest pain, palpitations, shortness of breath, nausea/vomiting, abdominal pain, dizziness/lightheadedness with ambulation. Patient discharged home with home health in a stable condition. She is to follow up with her PCP in 1 week and ortho as scheduled. Status at Discharge Functional status at discharge: uses cane/walker Time Spent with Patient Time attestation: Total time spent providing and/or coordinating discharge services: Time spent: Greater than 30 minutes Exam Narrative: AF HR 50 RR 15 SPO2 99 BP 133/61 General: female in no acute respiratory distress who is nontoxic appearing, sitting up in bed. HEENT: Normocephalic. Atraumatic. Extraocular movement intact. Sclera clear and anicteric. No facial asymmetry. Chest: Lungs are clear to auscultation bilaterally. No wheezes or crackles. CV: Heart was regular rate and rhythm. Abd: Abdomen was soft. Nontender. Nondistended. Positive bowel sounds. Ext: No clubbing, cyanosis, or edema. DP pulses bilaterally. Nontender to palpation of the ankle. No wounds or abrasions. No redness or warmth. Neuro: Patient is alert and oriented x4. Speech is clear. DS: Data Data Completed and Pending Completed studies during hospitalization: venous doppler foot ct ankle xr Labs on day of discharge: Labs from last 24 hours 05/17/25 05:46 WBC 15.7 H RBC 3.81 L Hgb 11.9 L Hct 36.0 L MCV 94.5 MCH 31.2 MCHC 33.1 RDW 12.0 Plt Count 254 MPV 10.0 Sodium 137 Potassium 3.9 Chloride 106 Carbon Dioxide 28 Anion Gap 3 L BUN 31 H Creatinine 0.97 Estim Creat Clear Calc 38 Estimated GFR 55 L Glucose 107 Calcium 9.3 Total Bilirubin 0.2 AST 28 ALT 27 Alkaline Phosphatase 78 Total Protein 5.4 L Albumin 2.9 L Discharge Plan Discharge Attending physician on discharge: Carlos A Arvizu Consulting providers: Miguel Loaiza; Anusha Mendoza Discharging Clinician: Anusha Mendoza Anticipated Discharge Date/Time: 05/17/25 10:02 Patient Disposition: Home with Home Health Service Activity: as tolerated Diet: as tolerated and heart healthy Discharge Instructions: Discharge disposition: Patient admitted to the hospital for right ankle pain and difficulty ambulating Concern for pseudogout vs arthritis flare Evaluated by orthopedics and underwent a depo-medrol injection to the right ankle joint on 05/[address] Loaiza Medications: * Continue 40 mg PO prednisone, attached is information on this medication Care for your joint: * Rest the affected joint for the next 24 hours. Avoid heavy lifting or strenuous activity with that joint until pain and swelling have improved. * You may use ice packs for 15?20 minutes at a time to help with pain and swelling. Watch for side effects: * Rarely, steroid injections can cause side effects such as skin color changes, thinning of the skin, or infection at the injection site. * If you notice increasing redness, warmth, swelling, pus, or fever, contact your healthcare provider right away. When to seek medical attention: * Call your doctor or go to the emergency room if you develop severe pain, cannot move the joint, have a fever, or notice any signs of infection. Monitor blood pressures Take caution while standing, rising, or moving Change positions slowly taking a break between each position change If you standing feel dizzy sit back down and take a break Encouraged to continue with yearly vaccinations Return to the emergency department if he developed sudden shortness of breath, chest pain, nausea, vomiting, upset stomach or intractable diarrhea Return to the emergency department if you develop fever greater than 100.5 Thank you for [facility] for your healthcare needs Care Coordination: Patient to have [facility] for PT/OT eval and treat, and detention. Their phone number is [phone], if you have any questions; they will contact you to schedule their visits. RN Please fax discharge instructions to [phone]. Follow-up with the primary care physician within 1-2 weeks Patient Instructions: Prednisone (By mouth), Cortisone (Injection) Patient Language: Ukrainian Stand Alone Forms: General Discharge Information Follow-up/Referrals: Marquis Simpson MD [Primary Care Provider, Family Practice] - 1 Week Miguel Loaiza MD [Physician, Orthopedics] - Call for Appointment Discharge Medications: New prednisone 20 mg tablet 40 mg PO DAILY Qty: 6 0RF Continued (DME) OneTouch Ultra Test Strip See Rx Instructions .Route Qty: 100 3RF Rx Instructions: test once daily; ok to dispense generic that is compatible with glucometer amlodipine 10 mg tablet 10 mg PO DAILY Zyrtec 10 mg capsule 10 mg PO DAILY PRN (Reason: allergy symptoms) tramadol 50 mg tablet 50 mg PO TID PRN (Reason: pain) Qty: 60 0RF acetaminophen 500 mg tablet 1,000 mg PO TID PRN (Reason: janene) 7 Days Qty: 42 0RF (DME) blood-glucose meter, wireless Kit See Rx Instructions .Route Qty: 1 0RF Rx Instructions: As directed (DME) blood-glucose meter [OneTouch Ultra2 Meter] Kit See Rx Instructions .Route Qty: 1 0RF Rx Instructions: As directed clopidogrel 75 mg tablet 75 mg PO DAILY Qty: 90 1RF citalopram 40 mg tablet See Rx Instructions .ROUTE .COMPLEX Qty: 90 2RF Dose Instruction: TAKE 1 TABLET BY MOUTH EVERY DAY Rx Instructions: TAKE 1 TABLET BY MOUTH EVERY DAY atorvastatin 80 mg tablet 80 mg PO DAILY Qty: 90 3RF isosorbide mononitrate 30 mg tablet extended release 24 hr 30 mg PO DAILY Qty: 90 1RF oxybutynin chloride 5 mg tablet extended release 24hr 5 mg PO DAILY Qty: 90 1RF levothyroxine 50 mcg tablet 50 mcg PO DAILY Qty: 90 1RF Date of admission: 05/14/25 15:25 Primary Care Provider: Marquis Simpson Admitting Provider: Moisés Lennon Attending physician on admission: Moisés Lennon Condition: Stable Hospitalist MIPS Heart Failure (Exclusion) Patient has history of Heart Transplant or Left Ventricular Assistive Device?: No IF YES, STOP HERE Heart Failure (Qualifier) Patient has current or prior documentation of LVEF less than or equal to 40%, or mod/servere depressed LVSF?: No IF NO, STOP HERE
== END 2025-05-17 11:10 | disposition home health service (06) | DRG 554 ==
LOC: ANHED 15:24 → ANH3MEDSUR 16:50
PROVIDERS: Nurse Practitioner; Admitting Provider Internal Medicine; Emergency Provider Nurse Practitioner Family; PCP Family Medicine; Visit Provider Student in an Organized Health Care Education/Training Program
DX: M11.271 Other chondrocalcinosis, right ankle and foot (principal); M10.9 Gout, unspecified; N18.30 Chronic kidney disease, stage 3 unspecified; R73.03 Prediabetes; I25.10 Atherosclerotic heart disease of native coronary artery without angina pectoris; I12.9 Hypertensive chronic kidney disease with stage 1 through stage 4 chronic kidney disease, or unspecified chronic kidney disease; E78.2 Mixed hyperlipidemia; M19.071 Primary osteoarthritis, right ankle and foot; Z96.653 Presence of artificial knee joint, bilateral; Z95.5 Presence of coronary angioplasty implant and graft; Z79.01 Long term (current) use of anticoagulants; Z87.891 Personal history of nicotine dependence; Z86.718 Personal history of other venous thrombosis and embolism; Z86.73 Personal history of transient ischemic attack (TIA), and cerebral infarction without residual deficits; Z86.711 Personal history of pulmonary embolism
CPT/HCPCS: 36415; 73610; 73700; 80048; 80053; 84550; 85025; 85027; 85652; 86140; 93970; 96374; 97110; 97116; 97162; 97166; 99285; A9270; J1010; J1650; J2919; J7512

== ENCOUNTER 2025-06-27 11:47 | Emergency (ER) | payer MEDICARE, SELFPAY ==
--- NOTE | ~2025-06-27 | CT_ITS ---
CT HEAD NON-CONTRAST Clinical History: fall Comparison: 08/25/2023 Technique: Unenhanced axial images skull base to vertex Coronal, sagittal reformats CT images acquired with automatic exposure control for dose reduction DLP: 681 mGy-cm Findings: Focal left subdural hemorrhage along left frontal vertex, 6 mm maximal thickness. Thin subdural blood along falx and right tentorium. Chronic right MCA distribution infarct. And also right occipital lobe. Chronic white matter microvascular ischemic changes. Chronic infarct left basal ganglia. Sulci, ventricles: Unremarkable. No evidence acute territorial infarct. No mass effect, midline shift. Bony calvarium intact. Visualized paranasal sinuses: Clear. Mastoid air cells: Clear. IMPRESSION: 1. Focal left subdural hemorrhage along left frontal vertex, 6 mm thickness. 2. Thin subdural blood along falx and right tentorium. Reviewed, dictated and finalized at location . [facility] [employer]
--- NOTE | ~2025-06-27 | CT_ITS ---
EXAMINATION: CT facial & cervical spine wo DATE: 06/27/2025 12:46 INDICATION: Fall. TECHNIQUE: Computed tomography (CT) of the maxillofacial region and cervical spine was performed without intravenous contrast. Automated exposure control and iterative reconstruction technique were employed. The dose-length product was 245.94 mGy-cm. COMPARISON: CT 08/25/2023 FINDINGS: MAXILLOFACIAL CT: There are likely changes of ocular lens replacement surgeries. There is a 4 mm density anterior to left orbit. There is mild mucosal thickening in the ethmoid sinuses. The mastoid air cells are normal. There is rightward deviation of the nasal septum. CERVICAL SPINE CT: Bone alignment is normal. Vertebral body heights are normal. There is mildly decreased disc height at C4-C5. There is multilevel severe facet joint osteoarthritis. There is mild neural foraminal stenosis at multiple levels on either side. There is mild central canal stenosis at C6-C7. IMPRESSION: 1. No fracture. 2. 4 mm density anterior to left ocular globe. 3. Mild cervical spondylosis. Reviewed, dictated and finalized at location [facility]
--- OUTSIDE RECORDS SUMMARY | 2025-06-27 10:45 | XMS_ITS | Encounter Summary ---
Author Organization [facility] Address [address] [place] [address] Care Team Providers Care Search Marketing Specialist Name Role Phone Marquis Simpson MD Primary Care Provider [phone] Reason for Visit * Reason Comments Fall Pt fell 1 [address] driveway. She hit her face on the gravel driveway and has cut her face. She states the inside of her mouth is cut.Pt is on blood thinners Encounter Details Date Type Department Care Team (Late st Contact Info) Description 06/27/2025 10:45 AM SUPERVISOR SEWING ROOM Office Visit [facility] [place] [address] [place] [address] Ning Peterson, VIDEO PLAYER MECHANIC [address] [facility] [address] [place] [address] Social History Tobacco Use Types Packs/Day Years Used Date Smoking Tobacco: Former Cigarettes Q uit: 12/28/1979 Smokeless Tobacco: Never Alcohol Use Standard Drinks/Week Comments Yes 4 [...] on file Legal Sex Female 12:24 AM SUPERVISOR SEWING ROOM Gender Identity Not on file Sexual Orientation Not on file documented as of this encounter Last Filed Vital Signs Vital Sign Reading Time Taken Comments Blood Pressure 124/78 06/27/2025 10:10 AM SUPERVISOR SEWING ROOM Pulse 65 06/27/2025 10:10 AM SUPERVISOR SEWING ROOM Temperature 36.3 C (97.4 F) 06/27/2025 10:10 AM SUPERVISOR SEWING ROOM Respiratory Rate 18 06/27/2025 10:10 AM SUPERVISOR SEWING ROOM Oxygen Saturation 97% 06/27/2025 10:10 AM SUPERVISOR SEWING ROOM Inhaled Oxygen Concentration - - Weight 74.8 kg (165 lb) 06/27/2025 10:10 AM SUPERVISOR SEWING ROOM Height 167.6 cm (5' 6) 06/27/2025 10:10 AM SUPERVISOR SEWING ROOM Body Mass Index 26.63 06/27/2025 10:10 AM SUPERVISOR SEWING ROOM documented in this encounter Plan of Treatment Not on file documented as of this encounter Visit Diagnoses Not on filedocumented in this encounter Care Teams Search Marketing Specialist Relationship Specialty Start Date End Date Marquis Simpson MD [facility] [address] [place] [address] PCP - General Family Medicine 04/08/25 documented as of this encounter
--- OUTSIDE RECORDS SUMMARY | 2025-06-27 12:42 | XMS_ITS | Encounter Summary ---
Author Organization [facility] Address [address] [facility] [address] [place] [address] Care Team Providers Care Surgical Instrument Maker Name Role Phone Tomasz Mcqueen Primary Care Provider + Maurizio Diana MD Primary Care Provider [phone] Marquis Simpson MD Primary Care Provider [phone] Encounter Details Date Type Department Care Team (Late st Contact Info) Description 02/24/2015 [facility] Only [facility] ProviderLoreta MD [address] [place] [address] Social History Tobacco Use Types Packs/Day Years Used Date Smoking Tobacco: Never Assessed Comments Unknown Sex and Gender Information Value Date Recorded Sex Assigned at Not on file Legal Sex Female 12:24 AM SENIOR CONTROLS ENGINEER Gender Identity Not on file Sexual Orientation [...] on filedocumented in this encounter Care Teams Surgical Instrument Maker Relationship Specialty Start Date End Date Tomasz Mcqueen PA [address] [place] [address] PCP - General Physician Bonding Machine Tender 03/21/22 04/01/24 Maurizio Diana MD [address] [place] [address] [address] [place], [place] [id number] PCP - General Family Medicine 04/02/24 04/07/25 Marquis Simpson MD [address] [place] [address] [address] [place], [place] [id number] PCP - General Family Medicine 04/08/25 documented as of this encounter
--- OUTSIDE RECORDS SUMMARY | 2025-06-27 12:42 | XMS_ITS | Encounter Summary ---
Author Organization [facility] Address [address] [facility] [address] [place] [address] Care Team Providers Care Associate Medical Director Name Role Phone Tomasz Mcqueen Primary Care Provider + Maurizio Diana MD Primary Care Provider [phone] Marquis Simpson MD Primary Care Provider [phone] Encounter Details Date Type Department Care Team (Late st Contact Info) Description 03/29/2016 [facility] Only [facility] ProviderLoreta MD [address] [place] [address] Social History Tobacco Use Types Packs/Day Years Used Date Smoking Tobacco: Never Assessed Comments Unknown Sex and Gender Information Value Date Recorded Sex Assigned at Not on file Legal Sex Female 12:24 AM CHARGE COORDINATOR Gender Identity Not on file Sexual Orientation [...] on filedocumented in this encounter Care Teams Associate Medical Director Relationship Specialty Start Date End Date Tomasz Mcqueen PA [address] [place] [address] PCP - General Physician Blood Bank Laboratory Professional 03/21/22 04/01/24 Maurizio Diana MD [address] [place] [address] [address] [place], [place] [id number] PCP - General Family Medicine 04/02/24 04/07/25 Marquis Simpson MD [address] [place] [address] [address] [place], [place] [id number] PCP - General Family Medicine 04/08/25 documented as of this encounter
--- OUTSIDE RECORDS SUMMARY | 2025-06-27 12:42 | XMS_ITS | Encounter Summary ---
Author Organization [facility] Group Address [address] [facility] [address] [place] [address] Care Team Providers Care General Internal Medicine Physician Name Role Phone Tomasz Mcqueen Primary Care Provider + Maurizio Diana MD Primary Care Provider [phone] Marquis Simpson MD Primary Care Provider [phone] Encounter Details Date Type Department Care Team (Late st Contact Info) Description 04/30/2015 [facility] Only [facility] ProviderLoreta MD [address] [place] [address] Social History Tobacco Use Types Packs/Day Years Used Date Smoking Tobacco: Never Assessed Comments Unknown Sex and Gender Information Value Date Recorded Sex Assigned at Not on file Legal Sex Female 12:24 AM SUEDE CLEANER Gender Identity Not on file Sexual Orientation [...] on filedocumented in this encounter Care Teams General Internal Medicine Physician Relationship Specialty Start Date End Date Tomasz Mcqueen PA [address] [place] [address] PCP - General Physician Deicer Repairer Electric 03/21/22 04/01/24 Maurizio Diana MD [address] [place] [address] [address] [place], [place] [phone] PCP - General Family Medicine 04/02/24 04/07/25 Marquis Simpson MD [address] [place] [address] [address] [place], [place] [phone] PCP - General Family Medicine 04/08/25 documented as of this encounter
--- OUTSIDE RECORDS SUMMARY | 2025-06-27 12:42 | XMS_ITS | Clinical Summary ---
Author Organization [facility] Address [address] [place] [address] Care Team Providers Care Rustic Terrazzo Setter Name Role Phone Marquis Simpson MD Primary Care Provider [phone] Allergies Active Allergy Reactions Criticality Noted Date Comments Adhesive Tape-Silicones Allopurinol Hives Medium 03/21/2022 Febuxostat Swollen tongue High 11/07/2022 Lisinopril Hives High Medications citalopram (CeleXA) 40 mg tablet take 1 tablet by oral route every day 0 0 7 Active diphenhydrAMINE (BENADRYL) 25 mg capsule take 2 capsule by oral route at bedtime 0 0 7 Active Additional Information Patient not taking.Reported on 06/27/2025 levothyroxine (SYNTHROID, LEVOTHROID) 50 mcg tablet Take [...] fatigue 11/18/2018 Coronary artery disease invo [place]ving [place] coronary artery of [place] heart without angina pectoris 12/27/2016 HTN (hypertension), benign 12/27/2016 Persistent sinus bradycardia 11/23/2016 Overview (12/08/2016): Sinus bradycardia, persistent Iron deficiency anemia 11/23/2016 Overview (12/08/2016): Iron deficiency anemia, unspecified iron deficiency anemia type Cerebrovascular accident (CVA) 03/24/2016 Mixed hyperlipidemia 03/24/2016 Resolved Problems Problem Noted Date Diagnosed Date Resolved Date Dyslipidemia 02/19/2018 06/24/2021 Encounters Date Type Department Care Team Description 06/27/2025 10:45 AM VOLUNTEER FIRE FIGHTER Office Visit [facility] [place] [address] [place] [address] Ning Peterson NP 05/14/2025 10:36 AM CDT - 05/14/2025 11:59 PM CDT Hospital Encounter [facility] Emergency, Room R Discharge Disposition: Discharge to home or self care 04/08/2025 10:00 AM CDT Office Visit [facility] Cardiology [address] [place] [address] Mark Anthony Mitchell MD Coronary artery disease involving [place] coronary artery of [place] heart without angina pectoris (Primary Dx); Status [...] on file Legal Sex Female 12:24 AM VOLUNTEER FIRE FIGHTER Gender Identity Not on file Sexual Orientation Not on file Last Filed Vital Signs Vital Sign Reading Time Taken Comments Blood Pressure 124/78 06/27/2025 10:10 AM VOLUNTEER FIRE FIGHTER Pulse 65 06/27/2025 10:10 AM VOLUNTEER FIRE FIGHTER Temperature 36.3 C (97.4 F) 06/27/2025 10:10 AM VOLUNTEER FIRE FIGHTER Respiratory Rate 18 06/27/2025 10:10 AM VOLUNTEER FIRE FIGHTER Oxygen Saturation 97% 06/27/2025 10:10 AM VOLUNTEER FIRE FIGHTER Inhaled Oxygen Concentration - - Weight 74.8 kg (165 lb) 06/27/2025 10:10 AM VOLUNTEER FIRE FIGHTER Height 167.6 cm (5' 6) 06/27/2025 10:10 AM VOLUNTEER FIRE FIGHTER Body Mass Index 26.63 06/27/2025 10:10 AM VOLUNTEER FIRE FIGHTER Plan of Treatment Health Maintenance Due Date [...] 02/13/2010, 04/26/2005 Medical Devices Implanted Type Area Coupling Machine Operator Device Identifier Shelf Expiration Date Model / Serial / Lot Medtronic Card Vasc Surgery 2.25 X 15mm Superior Amelia Rx Coronary Stent [id number] - [id number] Implanted:Qty: 1 on 11/16/2022 by Mark Anthony Mitchell MD at [facility] Medtronic Card Vasc Surgery 09/02/2025 [id number] / / [id number] [facility] Device Vascular Closure Femoral Artery Bioabsorbable Dual Method Vascade 6-7fr Collagen [id number] - [id number] Implanted:Qty: 1 on 11/16/2022 by Mark Anthony Mitchell MD at [facility] 08/14/2024 [id number] / / [id number] Procedures Procedure Name Priority Date/Time Associated Diagnosis Comments POCT LIPID PANEL Routine 04/08/2025 10:2 1 AM CDT Coronary artery disease involving [place] coronary artery of [place] heart without angina pectoris COMPREHENSIVE METABOLIC PANEL [...] Capillary blood 04/08/2025 1 0:21 AM CDT us Mark Anthony Mitchell MD POINT OF CARE [...] 7:10 AM CDT Performed at: - [facility] [address] [id number] Candy Forming Machine Operator: Librado Curran PhD, Phone: [phone] us Mark Anthony Mitchell MD LAB BLOOD ORDERABLES Final Resul t [facility] - 01 from Last 3 Months or Most Recently Relevant to Health Maintenance Insurance MEDICARE MEDICARE BLUE CROSS MEDICARE SUPPLEMENT MEDICARE COMMERCIAL GENERIC Care Teams Rustic Terrazzo Setter Relationship Specialty Start Date End Date Marquis Simpson MD [facility] [address] [address] PCP - General Family Medicine 04/08/25
--- OUTSIDE RECORDS SUMMARY | 2025-06-27 12:42 | XMS_ITS | Encounter Summary ---
Author Organization [facility] Medical Group Address [address] [facility] [address] [place] [address] Care Team Providers Care Jewelry Finisher Name Role Phone Tomasz Mcqueen Primary Care Provider + Maurizio Diana MD Primary Care Provider [phone] Marquis Simpson MD Primary Care Provider [phone] Encounter Details Date Type Department Care Team (Late st Contact Info) Description 04/29/2015 Orders Only [facility] ProviderLoreta MD [address] [place] [address] Social History Tobacco Use Types Packs/Day Years Used Date Smoking Tobacco: Never Assessed Comments Unknown Sex and Gender Information Value Date Recorded Sex Assigned at Not on file Legal Sex Female 12:24 AM SYNTHETIC PLASTERER Gender Identity Not on file Sexual Orientation [...] on filedocumented in this encounter Care Teams Jewelry Finisher Relationship Specialty Start Date End Date Tomasz Mcqueen PA [address] [place] [address] PCP - General Physician Cashiers Supervisor 03/21/22 04/01/24 Maurizio Diana MD [address] [place] [address] [address] [place] [address] PCP - General Family Medicine 04/02/24 04/07/25 Marquis Simpson MD [address] [place] [address] [address] [place] [address] PCP - General Family Medicine 04/08/25 documented as of this encounter
[2025-06-27] MEDS: HYDROGEN PEROXIDE 3% SOLN(*SP) 473 ML BOTTLE (13:06)
[2025-06-27 13:49] VITALS: PULSE 59; RESP 16; O2SAT 100
[2025-06-27] MEDS: ONDANSETRON INJ 4 MG/2 ML VIAL IV PUSH (13:50)
[2025-06-27] MEDS: MORPHINE SULFATE (*CRX) 4 MG/ML INJ 2 MG IV PUSH (13:51)
--- NOTE | 2025-06-27 14:18 | ED_ITS ---
HPI - Fall General Chief Complaint: Fall Stated Complaint: fall, facial injury Time Seen by Provider: 06/27/25 12:20 Source: patient Mode of arrival: EMS Limitations: no limitations History of Present Illness HPI Narrative: 79-year-old with a history of hypertension, hyperlipidemia, TIA on Plavix knee was brought in by EMS from home with the complaints of fall. Patient states that her dogs pulled her ,lost balance and fell face forward sustained a laceration above the upper lip ad also has neck pain.Denies any LOC.chest pain ,shoulder or Hip pain. MD complaint: fall Onset (ago): hour(s) (1) Fall witnessed: yes, by family Place fall occurred: home Loss of consciousness: none Prolonged down time: no Symptoms prior to fall: none Context: tripped/slipped Location of injury: face Severity: moderate Quality: dull Associated symptoms (after fall): denies Related Data Home Medications ?Medication ?Instructions ?Recorded ?Confirmed ?Last Taken ?Type amlodipine 10 mg tablet 10 mg PO DAILY 02/26/2504/17 Unknown History cetirizine 10 mg capsule (Zyrtec) 10 mg PO DAILY PRN a llergy symptoms 02/26/25 05/14/25 Unknown History Allergies Allergy/AdvReac Type Severity Reaction Status Date / Time febuxostat Allergy Severe Swelling Verified 05/14/25 17:59 of Lip/Tongue/Throat adhesive Allergy Mild Unknown Verified 05/14/25 17:59 allopurinol Allergy Mild HIVES Verified 05/14/25 17:59 lisinopril Allergy Unknown Skin Verified 05/14/25 17:59 Reaction pollen extracts Allergy Unknown Sneezing Verified 05/14/25 17:59 tizanidine Allergy Unknown Pt does Verified 05/14/25 17:59 not remember reaction Review of Systems Review of Systems: All systems reviewed & are unremarkable except as noted in HPI and below Constitutional: Constitutional: Reports no additional constitutional complaints Eyes: Eyes: Reports no additional eye complaints ENT: Reports as per HPI Cardiovascular: Cardiovascular: Reports no additional cardiovascular complaints Respiratory: Respiratory: Reports no additional respiratory complaints Gastrointestinal: Gastrointestinal: Reports no additional gastrointestinal complaints Musculoskeletal: Musculoskeletal: Reports no additional musculoskeletal complaints Neurologic: Reports system reviewed and no additional complaints, except as documented Psychiatric: Psychiatric: Reports no additional psychiatric complaints Endocrine: Endocrine: Reports no additional endocrine complaints [facility] Past Medical History Medical History TIA (transient ischemic attack) DVT (deep venous thrombosis) Pulmonary embolus Prediabetes Chronic kidney disease, stage 3 Coronary artery disease S/p 7 stents, on plavix. 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 Depression Osteoarthritis Gout Essential hypertension Mixed hyperlipidemia Surgical History Surgical History Hx of breast reduction, elective History of tonsillectomy History of inguinal hernia repair History of umbilical hernia repair History of tubal ligation History of 2 sections History of bilateral knee arthroplasty History of laminectomy History of cholecystectomy History of coronary artery stent placement History of cardiac catheterization Family History Family History Mother Diabetes mellitus Hypertension Father Family history of hypercholesterolemia Hypertension Family history of cardiovascular disease Sibling Family history of mental disorder Depression Family history of alcoholism Social History Social History (Updated 05/15/25 @ 00:54 by Mayra Samayoa APRN) Social History: She is and retired. Surrogate medical decision maker: Mary Anne Riggins, daughter. Code status: Full code. Caffeine-Coffee/tea/soda Smoking packs per day: 1 Smoking cigarettes per day: 20.0 Years smoked: 20 Smoking pack-years: 20.00 Smoking status: Never smoker Tobacco type: cigarettes Smoking end date: 07/16/79 Alcohol intake: never Drinks per week: 3 Substance use: current Substance use type: marijuana Other substance usage details: gummies-1/2 a gummie daily HS Lack of Transportation: No Lack of Food: Never True Current Housing: I Have Housing Concerned About Future Housing: No Difficulty Paying Gas/Electric Bills: No Difficulty Paying for Meds: No Currently Unemployed: No Education: Master's Degree or Higher Difficulty w/ Childcare or Family Care: No Living arrangements: alone Additional living arrangements comments: The patient lives in her [place]. 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 Spiritual care concerns: No Exam Narrative: GENERAL: Well-appearing, well-nourished, and in no acute distress. HEAD: Normocephalic, atraumatic. EYES: PERRLA and EOMI. ENT: Nares clear, no rhinorrhea or epistaxis. Mucous membranes moist.has irregular superficial lac on the upper lip with mild bleeding NECK: Supple. in C collar CHEST: Clear to auscultation. No respiratory distress. HEART: Regular rate and rhythm. No murmur heard. Normal peripheral pulses. ABDOMEN: Soft, nontender, nondistended, normal active bowel sounds. EXTREMITIES: Normal range of motion. No edema. SKIN: Warm, dry, no rash. NEURO: No focal deficits. Alert and oriented x3. PSYCH: Normal mood and affect. Course Course Emergency Course: CT of the head ,face and Cspine were neg for acute findings , superficial lacerations were cleaned and were dermabonded. Ccollar was removed after the CT , pt feeling much better . She feels comfortable going home. Vital Signs Vital signs: Vital Signs Pulse Rate 59 L 06/27/25 13:49 Respiratory Rate 16 06/27/25 13:49 Pulse Oximetry 100 06/27/25 13:49 Pulse Rate 59 L 06/27/25 13:49 Respiratory Rate 16 06/27/25 13:49 Pulse Oximetry 100 06/27/25 13:49 Procedures Laceration Laceration 1: Date: 06/27/25 Time: 14:27 Site: face Size (cm): 2 Description: irregular Depth: simple, single layer Pre-repair: irrigated extensively ====== Skin Level ====== Skin layer closed with: dermabond ====== Subcutaneous Layer ====== ====== Muscle Layer ====== ====== Tendon Layer ====== MDM Differential Diagnosis Differential Diagnosis: facial fracture , Head injury , C spine fracture Imaging Data Radiologist's impression: ITS Impressions Head CT 06/27/25 13:36 IMPRESSION: 1. Focal left subdural hemorrhage along left frontal vertex, 6 mm thickness. 2. Thin subdural blood along falx and right tentorium. Head/Cervical Spine/Facial Bones CT 06/27/25 13:39 IMPRESSION: 1. No fracture. 2. 4 mm density anterior to left ocular globe. 3. Mild cervical spondylosis. Discharge Plan Discharge Clinical Impression: Contusion of face Qualifiers: Encounter type: initial encounter Qualified Code(s): S00.83XA - Contusion of other part of head, initial encounter Laceration of face Qualifiers: Encounter type: initial encounter Qualified Code(s): S01.81XA - Laceration without foreign body of other part of head, initial encounter Cervical strain Qualifiers: Encounter type: initial encounter Qualified Code(s): S16.1XXA - Strain of muscle, fascia and tendon at neck level, initial encounter Patient Disposition: Home Condition: Stable Instructions: Laceration (ED), Contusion in Adults (ED) Additional Instructions: Fall precautions , continue home medications. Patient Language: Sinhala Prescriptions: No Action (DME) OneTouch Ultra Test Strip See Rx Instructions .Route Qty: 100 3RF Rx Instructions: test once daily; ok to dispense generic that is compatible with glucometer amlodipine 10 mg tablet 10 mg PO DAILY Zyrtec 10 mg capsule 10 mg PO DAILY PRN (Reason: allergy symptoms) tramadol 50 mg tablet 50 mg PO TID PRN (Reason: pain) Qty: 60 0RF acetaminophen 500 mg tablet 1,000 mg PO TID PRN (Reason: janene) 7 Days Qty: 42 0RF prednisone 20 mg tablet 40 mg PO DAILY Qty: 6 0RF (DME) blood-glucose meter, wireless Kit See Rx Instructions .Route Qty: 1 0RF Rx Instructions: As directed (DME) blood-glucose meter [OneTouch Ultra2 Meter] Kit See Rx Instructions .Route Qty: 1 0RF Rx Instructions: As directed clopidogrel 75 mg tablet 75 mg PO DAILY Qty: 90 1RF citalopram 40 mg tablet See Rx Instructions .ROUTE .COMPLEX Qty: 90 2RF Dose Instruction: TAKE 1 TABLET BY MOUTH EVERY DAY Rx Instructions: TAKE 1 TABLET BY MOUTH EVERY DAY atorvastatin 80 mg tablet 80 mg PO DAILY Qty: 90 3RF isosorbide mononitrate 30 mg tablet extended release 24 hr 30 mg PO DAILY Qty: 90 1RF levothyroxine 50 mcg tablet 50 mcg PO DAILY Qty: 90 1RF oxybutynin chloride 5 mg tablet extended release 24hr 5 mg PO DAILY Qty: 90 1RF Follow-up/Referrals: Marquis Simpson MD [Primary Care Provider, [facility]] Time of Disposition: 14:29
[2025-06-27 15:17] VITALS: BP 139/69; PULSE 64; RESP 18; O2SAT 100
== END 2025-06-27 15:25 | disposition home or self-care (01) ==
PROVIDERS: Emergency Provider Family Medicine; PCP Family Medicine
DX: S01.511A Laceration without foreign body of lip, initial encounter (principal); S00.83XA Contusion of other part of head, initial encounter; S16.1XXA Strain of muscle, fascia and tendon at neck level, initial encounter; I12.9 Hypertensive chronic kidney disease with stage 1 through stage 4 chronic kidney disease, or unspecified chronic kidney disease; N18.30 Chronic kidney disease, stage 3 unspecified; I25.10 Atherosclerotic heart disease of native coronary artery without angina pectoris; E78.2 Mixed hyperlipidemia; R73.03 Prediabetes; M19.90 Unspecified osteoarthritis, unspecified site; M10.9 Gout, unspecified; E78.5 Hyperlipidemia, unspecified; Z95.5 Presence of coronary angioplasty implant and graft; Z96.653 Presence of artificial knee joint, bilateral; Z86.73 Personal history of transient ischemic attack (TIA), and cerebral infarction without residual deficits; Z86.718 Personal history of other venous thrombosis and embolism; Z86.711 Personal history of pulmonary embolism; Z87.891 Personal history of nicotine dependence; Z90.49 Acquired absence of other specified parts of digestive tract; Z79.02 Long term (current) use of antithrombotics/antiplatelets; W18.39XA Other fall on same level, initial encounter; Y93.K1 Activity, walking an animal; M47.812 Spondylosis without myelopathy or radiculopathy, cervical region
CPT/HCPCS: 70450; 70486; 72125; 96374; 96375; 99284; A9270; J2270; J2405